=== PATIENT | female | born 1970 | race American Indian/Alaskan Native ===

== ENCOUNTER 2018-07-23 16:10 | Inpatient (IN) | payer MEDICARE ==
[2018-07-23 18:47] LABS: Bacteria,Urine 3+ /HPF (Negative); Bilirubin,Urine NEG (Negative); Blood,Urine MOD (Negative); Color,Urine Yellow (Yellow); Mucus,Urine FEW /HPF; Urobilinogen,Urine < 2.0 mg/dL (<2.0)
--- NOTE | 2018-07-23 19:14 | XRay Report ---
FINAL REPORT EXAM: XR CHEST 1V AP HISTORY: tachycardia COMPARISON: Chest CT September 2017. FINDINGS: Frontal view(s) of the chest obtained. Mild cardiac enlargement. Shallow inspiration.. No gross conso lidation or effusion. No pneumothorax. IMPRESSION: Stable mild cardiac enlargement. Lungs are grossly clear.
[2018-07-23] MEDS ORDERED: MAXIPIME/NS 2 GM/100 ML 2 GM/100 ML BAG IV ONE (19:46)
--- NOTE | 2018-07-23 19:46 | Emergency Department Report ---
ED General Adult HPI - General Chief complaint: Weakness Stated complaint: legs swollen Time Seen by Provider: 07/23/18 16:28 Source: EMS Mode of arrival: Ambulatory Limitations: No Limitations - History of Present Illness Initial comments: Mrs. Dennis is a 48-year-old female history of CVA, sepsis, diabetes, hypertension, decubitus ulcers who presents with diarrhea and possible wound infection. Mrs. Dennis called her cousin who is a healthcare provider to her home. The patient wanted assistance with her leg wounds. Her cousin realized that she has been sitting in her feces and urine for several days. Her home health aid has not been able to come to the home in 3 days. She was seen at outside hospital. She was diagnosed a UTI. She was sent home with Bach catheter. She was instructed to return to the ER in 2 days to have the Bach catheter removed. She is currently taking ciprofloxacin. She also has severe pain due to chronic ulcers on both legs and both buttocks. Cousin contacted the EMS for assistance with wound care. She is unclear if the wounds were infected. Patient is mobile. Patient is able to ambulate with walker. However due to her habitus and excess weight (BMI 62 kg/m2), mobility is difficult. Cousin is very frustrated that she chooses not to ambulate although she has the ability. Her sons with whom she lives provides hygiene care. Cousin is concerned for severe depression before and after stroke which has caused patient to neglect her health. -: year(s) (ulcers presents for several years) Location: buttocks, lower extremity Severity scale (0 -10): 8 Quality: burning Consistency: constant Associated Symptoms: malaise - Related Data Home Medications Medication Instructions Recorded Confirmed Last Taken Metformin HCl [Metformin HCl ER] 500 mg PO BID 08/10/13 09/18/17 09/17/17 Baclofen [Lioresal] 10 mg PO QID 08/19/15 09/18/17 09/17/17 Previous Rx's Medication Instructions Recorded Last Taken Type oxyCODONE /ACETAMINOPHEN [Percocet 1 tab PO Q6HR PRN #20 tablet 11/01/15 09/17/17 Rx 5/325 mg] ALBUTEROL NEB's [Proventil 0.083% 2.5 mg IH Q4HRT PRN #100 nebu 09/21/17 Unknown Rx NEBS] Acetaminophen [Acetaminophen TAB] 650 mg PO Q4H PRN #50 tablet 09/21/17 Unknown Rx Amitriptyline [Elavil] 50 mg PO QHS #30 tablet 09/21/17 Unknown Rx Aspirin [Aspirin TAB] 325 mg PO DAILY #30 tablet 09/21/[address] [Voltaren Dr] 75 mg PO BID #30 tablet 09/21/17 Unknown Rx Famotidine [Pepcid] 20 mg PO BID #60 tablet 09/21/17 Unknown Rx Insulin Glargine,Hum.rec.anlog 2 units SQ HS #1 insuln.pen 09/21/17 Unknown Rx [Lantus Solostar] Levothyroxine [Synthroid] 50 mcg PO DAILY@0600 #30 tablet 09/21/17 Unknown Rx Lisinopril [Zestril TAB] 40 mg PO QDAY #30 tablet 09/21/17 Unknown Rx Metoprolol [Lopressor TAB] 25 mg PO BID #60 tablet 09/21/17 Unknown Rx Oxycodone HCl/Acetaminophen 1 each PO Q8H PRN #24 tablet 09/21/17 Unknown Rx [Percocet 10/325 mg] Pregabalin [Lyrica] 75 mg PO TID #90 capsule 09/21/17 Unknown Rx buPROPion [Wellbutrin] 100 mg PO BID #60 tablet 09/21/17 Unknown Rx hydroCHLOROthiazide [HCTZ] 25 mg PO QDAY #30 tablet 09/21/17 Unknown Rx Allergies Allergy/AdvReac Type Severity Reaction Status Date / Time No Known Allergies Allergy Unverified 11/01/15 12:20 ED Review of Systems ROS: Stated complaint: legs swollen Other details as noted in HPI Comment: All other systems reviewed and negative Constitutional: denies: fever, malaise Respiratory: denies: cough Cardiovascular: denies: chest pain, palpitations Skin: rash, lesions ED Past Medical Hx - Past Medical History Previous Medical History?: Yes Hx Hypertension: Yes (2009) Hx CVA: Yes (09/2014) Hx Heart Attack/AMI: No Hx Congestive Heart Failure: Yes Hx Diabetes: Yes (2005) Hx Deep Vein Thrombosis: No Hx Pulmonary Embolism: No Hx GERD: No Hx Liver Disease: No Hx Renal Disease: No Hx of Cancer: No Hx Sickle Cell Disease: No Hx Arthritis: No Hx Headaches / Migraines: No Hx Seizures: Yes (2005) Hx Kidney Stones: No Hx Psychiatric Treatment: No Hx Asthma: Yes Hx COPD: No Hx Tuberculosis: No Hx Dementia: No Hx HIV: No - Surgical History Past Surgical History?: Yes Hx Coronary Stent: No Hx Open Heart Surgery: No Hx Pacemaker: No Hx Internal Defibrillator: No Hx Cholecystectomy: No Hx Appendectomy: No Hx Breast Surgery: No Additional Surgical History: spinal sx 09/2013 left pinky to amputated 09/2014. x3. tubal ligation - Social History Smoking Status: Never Smoker Substance Use Type: None - Medications Home Medications: Home Medications Medication Instructions Recorded Confirmed Last Taken Type Metformin HCl [Metformin HCl ER] 500 mg PO BID 08/10/13 09/18/17 09/17/17 History Baclofen [Lioresal] 10 mg PO QID 08/19/15 09/18/17 09/17/17 History oxyCODONE /ACETAMINOPHEN [Percocet 1 tab PO Q6HR PRN #20 tablet 11/01/15 09/18/17 09/17/17 Rx 5/325 mg] ALBUTEROL NEB's [Proventil 0.083% 2.5 mg IH Q4HRT PRN #100 nebu 09/21/17 Unknown Rx NEBS] Acetaminophen [Acetaminophen TAB] 650 mg PO Q4H PRN #50 tablet 09/21/17 Unknown Rx Amitriptyline [Elavil] 50 mg PO QHS #30 tablet 09/21/17 Unknown Rx Aspirin [Aspirin TAB] 325 mg PO DAILY #30 tablet 09/21/[address] [Leslie Menjivar] 75 mg PO BID #30 tablet 09/21/17 Unknown Rx Famotidine [Pepcid] 20 mg PO BID #60 tablet 09/21/17 Unknown Rx Insulin Glargine,Hum.rec.anlog 2 units SQ HS #1 insuln.pen 09/21/17 Unknown Rx [Lantus Solostar] Levothyroxine [Synthroid] 50 mcg PO DAILY@0600 #30 tablet 09/21/17 Unknown Rx Lisinopril [Zestril TAB] 40 mg PO QDAY #30 tablet 09/21/17 Unknown Rx Metoprolol [Lopressor TAB] 25 mg PO BID #60 tablet 09/21/17 Unknown Rx Oxycodone HCl/Acetaminophen 1 each PO Q8H PRN #24 tablet 09/21/17 Unknown Rx [Percocet 10/325 mg] Pregabalin [Lyrica] 75 mg PO TID #90 capsule 09/21/17 Unknown Rx buPROPion [Wellbutrin] 100 mg PO BID #60 tablet 09/21/17 Unknown Rx hydroCHLOROthiazide [HCTZ] 25 mg PO QDAY #30 tablet 09/21/17 Unknown Rx ED Physical Exam - General Limitations: No Limitations General appearance: alert, in no apparent distress, other (large habitus, excessive weight) - Head Head exam: Present: atraumatic, normocephalic - Eye Eye exam: Present: normal appearance, EOMI. Absent: scleral icterus, conjunctival injection Pupils: Present: normal accommodation - ENT ENT exam: Present: normal orophraynx, mucous membranes moist - Neck Neck exam: Present: normal inspection, full ROM. Absent: tenderness, mening ismus - Respiratory Respiratory exam: Present: normal lung sounds bilaterally. Absent: wheezes, rales, rhonchi, stridor, chest wall tenderness, accessory muscle use, decreased breath sounds, prolonged expiratory - Cardiovascular Cardiovascular Exam: Present: normal rhythm, tachycardia, normal heart sounds. Absent: systolic murmur, diastolic murmur - GI/Abdominal GI/Abdominal exam: Present: soft. Absent: distended, tenderness, guarding, rebound - Back Exam Back exam: Present: normal inspection - Neurological Exam Neurological exam: Present: alert, oriented X3 - Psychiatric Psychiatric exam: Present: depressed, flat affect - Skin Skin exam: Present: other (large stage I cubitus ulcers skin breakdown on buttocks, large ulcer involving the majority of the right lower leg, leg bandage on the right) ED Course Vital Signs 07/23/18 07/23/18 07/23/18 18:05 18:30 19:39 Temperature 98.2 F 98.2 F Pulse Rate 112 H 116 H Respiratory 18 18 16 Rate Blood Pressure 177/84 Blood Pressure 177/84 144/100 [Right] O2 Sat by Pulse 98 88 Oximetry ED Medical Decision Making - Medical Decision Making Ms. Truong presents with history of UTI, leg ulcers. Will persistent tachycardia is concerning for bacteremia sepsis which she's had on previous occasion. Will be admitted to hosopitalist service for UTI sepsis. IV fluid and antibiotics initiated in the ED. due to history of CHF, IVF boluses were held. unable to order 30 ml/kg bolus. Critical care attestation.: If time is entered above; I have spent that time in minutes in the direct care of this critically ill patient, excluding procedure time. ED Disposition Clinical Impression: Sepsis, Sepsis affecting skin, UTI (urinary tract infection) Disposition: OP ADMIT IP TO THIS HOSP Is pt being admited?: Yes Does the pt Need Aspirin: No Condition: Stable
[2018-07-23] MEDS ORDERED: NACL 0.9% 1000 ML 1,000 ML IV ONE (19:47)
[2018-07-23 20:08] LABS: Hematocrit 31.6 % (30.3-42.9); Hemoglobin 9.7 gm/dl (10.1-14.3); Mean Corpuscular HGB Conc 31 % (30-34); Platelet Count 678 K/mm3 (140-440); Red Blood Count 4.91 M/mm3 (3.65-5.03)
[2018-07-23 20:09] LABS: Mean Corpuscular Hemoglobin 20 pg (28-32); Mean Corpuscular Volume 64 fl (79-97); Red Cell Distribution Width 20.3 % (13.2-15.2)
[2018-07-23 20:36] LABS: Albumin 2.9 g/dL (3.9-5); Calcium 9.4 mg/dL (8.4-10.2)
[2018-07-23] MEDS ORDERED: D50W (25GM) Syringe IV ONE (20:59)
[2018-07-23] MEDS ORDERED: HumuLIN R IV ONE (20:59)
[2018-07-23] MEDS ORDERED: ZOFRAN IV PRN (21:31)
[2018-07-23] MEDS ORDERED: TYLENOL PO PRN (21:31)
[2018-07-23] MEDS ORDERED: D50W (25GM) Syringe IV PRN (21:31)
[2018-07-23] MEDS ORDERED: SODIUM CHLORIDE FLUSH SYRINGE 10 ML IV PRN (21:31)
[2018-07-23] MEDS ORDERED: APRESOLINE IV PRN (21:34)
--- NOTE | 2018-07-23 21:34 | History and Physical Report ---
History of Present Illness Date of examination: 07/23/18 History of present illness: 48 year old woman with history of HTN, DM, CVA with residual right side weakness, decubitus ulcers was brought to the ER bu her cousin because she found at home weak and sitting in urine and feces. He was diagnosed with a UTI at [facility] and sent home with a back on the 07/19. She was instructed to return to the ER the next day to have the back removed. Her home health aide didnt show up and she hasnt followed up. She states there is no change in her wounds Review of systems Constitutional: no weight loss, chills, fever Ears, eyes, nose, mouth and throat: no nasal congestion, no nasal discharge, no sinus pressure, no vision change, no red eye. Neck: No neck pain or rigidity. Cardiovascular: no palpitations, chest pain Respiratory: no cough, shortness of breath Gastrointestinal: no hematochezia, abdominal pain Genitourinary : no frequency , no hematuria Musculoskeletal: no joint swelling or muscle ache Integumentary: no rash, no pruritis Neurological: no parathesias, no numbness, no focal weakness Endocrine: no cold or heat intolerance, no polyuria or polydipsia Hematologic/Lymphatic: no easy bruising, no easy bleeding, no gland swelling Allergic/Immunologic: no urticaria, no angioedema. PAST MEDICAL HISTORY:HTN, DM, CVA with residual right side weakness, decubitus ulcers PAST SURGICAL HISTORY: c/section X3, back surgery, left 5th toe amputation SOCIAL HISTORY: Denies alcohol, drugs, tobacco FAMILY HISTORY: Hypertension Medications and Allergies Allergies Allergy/AdvReac Type Severity Reaction Status Date / Time No Known Allergies Allergy Unverified 11/01/15 12:20 Home Medications Medication Instructions Recorded Confirmed Last Taken Type RX: Ciprofloxacin HCl 500 mg PO BID 07/23/18 07/23/18 Unknown History [Ciprofloxacin TAB] RX: Potassium Chloride 10 meq PO QDAY 07/23/18 07/23/18 Unknown History RX: Tramadol HCl [Ultram] 1 - 2 tab PO Q6H PRN 07/23/18 07/23/18 Unknown History RX: Acetaminophen [Acetaminophen 650 mg PO Q4H PRN tablet 08/01/18 Unknown Rx TAB] RX: Amitriptyline [Elavil] 50 mg PO QHS tablet 08/01/18 Unknown Rx RX: Aspirin [Aspirin TAB] 325 mg PO DAILY tablet 08/01/18 Unknown Rx RX: Baclofen [Lioresal] 10 mg PO TID tablet 08/01/18 Unknown Rx RX: Carvedilol [Coreg] 6.25 mg PO BID tablet 08/01/18 Unknown Rx RX: Famotidine [Pepcid] 40 mg PO QDAY tablet 08/01/18 Unknown Rx RX: Gabapentin [Neurontin] 300 mg PO Q8HR PRN capsule 08/01/18 Unknown Rx RX: Lisinopril [Zestril TAB] 5 mg PO QDAY tablet 08/01/18 Unknown Rx RX: Lispro Insulin [Humalog] 0 unit SUB-Q ACHS units 08/01/18 Unknown Rx RX: Pantoprazole [Protonix TAB] 40 mg PO DAILY tablet 08/01/18 Unknown Rx RX: buPROPion [Wellbutrin] 100 mg PO BID tablet 08/01/18 Unknown Rx Active Meds: Active Medications Acetaminophen (Tylenol) 650 mg PO Q4H PRN PRN Reason: Pain MILD(1-3)/Fever >100.5/FRANCOIS Dextrose (D50w (25gm) Syringe) 50 ml IV PRN PRN PRN Reason: Hypoglycemia Enoxaparin Sodium (Lovenox) 30 mg SUB-Q QDAY XUAN Sodium Chloride (Nacl 0.45% 1000 Ml) 1,000 mls @ 125 mls/hr IV DIRECT XUAN Insulin Human Lispro (Humalog) 0 unit SUB-Q ACHS XUAN; Protocol Exam - Physical Exam Narrative exam: General Apperance: The patient lying in bed, breathing comfortable HEENT: Normocephalic, atraumatic. Pupils equally round and reactive to light, E ELMER, no sclericterus or JVD or thyromegaly or nodule. , no carotid bruit, mucous membranes moist, no exudate or erythema Heart: S1-S2, regular is rhythm Lungs: Clear to auscultation bilaterally, breathing comfortable Abdomen: Positive bowel sounds, soft, nontender, nondistended, no organomegaly Extremities: No edema cyanosis clubbing Skin: sacral and lower extremity ulcers, no rash, nodule, warm and dry Neuro: cranial nerves 2-12 intact, speech is fluent, motor/sensory intact - Constitutional Vitals: Temp Pulse Resp BP Pulse Ox 98.2 F 119 H 20 154/90 88 07/23/18 19:39 07/23/18 20:00 07/23/18 20:00 07/23/18 20:00 07/23/18 18:30 Results - Labs CBC & Chem 7: 08/01/18 05:34 08/01/18 06:55 Labs: Abnormal lab results 07/23/18 07/23/18 07/23/18 Range/Units 18:30 19:40 19:40 WBC 16.6 H (4.5-11.0) K/mm3 Hgb 9.7 L (10.1-14.3) gm/dl MCV 64 L (79-97) fl MCH 20 L (28-32) pg RDW 20.3 H (13.2-15.2) % Plt Count 678 H (140-440) K/mm3 Potassium 5.5 H (3.6-5.0) mmol/L Carbon Dioxide 21 L (22-30) mmol/L BUN 38 H (7-17) mg/dL Creatinine 1.5 H (0.7-1.2) mg/dL Glucose 130 H (65-100) mg/dL Lactic Acid (0.7-2.0) mmol/L AST 41 H (5-40) units/L Albumin 2.9 L (3.9-5) g/dL Urine WBC (Auto) 75.0 H (0.0-6.0) /HPF 07/23/18 Range/Units 19:40 WBC (4.5-11.0) K/mm3 Hgb (10.1-14.3) gm/dl MCV (79-97) fl MCH (28-32) pg RDW (13.2-15.2) % Plt Count (140-440) K/mm3 Potassium (3.6-5.0) mmol/L Carbon Dioxide (22-30) mmol/L BUN (7-17) mg/dL Creatinine (0.7-1.2) mg/dL Glucose (65-100) mg/dL Lactic Acid 2.50 H* (0.7-2.0) mmol/L AST (5-40) units/L Albumin (3.9-5) g/dL Urine WBC (Auto) (0.0-6.0) /HPF - Imaging and Cardiology Chest x-ray: report reviewed Assessment and Plan Assessment Sepsis UTI ARF Hyperkalemia Hypertension Diabetes Decubitus/Lowerr extremity ulcers CVA w/ right suded weakness Plan Admit to medicine Start IV fluid, rocephin, follow cultures Give kayexalate, follow kidney function Check fingersticks, start sliding scale conult wound care DVT prophalaxis
[2018-07-23] MEDS ORDERED: NACL 0.45% 1000 ML 1,000 ML IV ONE (22:49)
[2018-07-23] MEDS: HumaLOG SUB-Q SCH (22:51)
[2018-07-23] MEDS ORDERED: NACL 0.45% 1000 ML IV SCH (22:52)
[2018-07-23] MEDS: SODIUM CHLORIDE FLUSH SYRINGE 10 ML IV SCH (22:52)
[2018-07-23] MEDS ORDERED: KIONEX PO ONE (22:57)
[2018-07-23] MEDS ORDERED: KIONEX ONE (23:05)
[2018-07-23 23:25] LABS: Total Cells Counted 100
[2018-07-23 23:26] LABS: Band Neutrophils # (Manual) 6.5 K/mm3; Basophils % (Manual) 0 % (0.0-1.8); Myelocytes # (Manual) 0.2 K/mm3
[2018-07-23 23:27] LABS: Platelet Estimate Consistent w Auto; Target Cells 1+
[2018-07-24] MEDS ORDERED: LOPRESSOR PO ONE (02:13)
[2018-07-24] MEDS ORDERED: LOPRESSOR ONE (02:17)
[2018-07-24] MEDS: PERCOCET 5/325 PO PRN (04:09)
[2018-07-24 08:22] LABS: Calcium 8.7 mg/dL (8.4-10.2)
[2018-07-24] MEDS: HumaLOG SUB-Q SCH ×4 (08:27→21:43)
--- NOTE | 2018-07-24 09:37 | Progress Note ---
Assessment and Plan Assessment and plan: Sepsis due to UTI. Continue Ceftriaxone UTI. Ceftriaxone Urine Cx in progress She was just discharged from ED at [facility] with diagnosis of UTI few days ago. History of stroke with residual right sided weakness Right leg ulcer. Bilateral post thigh ulcers Wound care nurse consulted Hypertension. Monitor BP Diabetes mellittus type 2. Fingerstick glucose q ac and hs Full code History Interval history: Gen weakness Hospitalist Physical - Physical exam Narrative exam: GEN: Not in acute distress, obese HEENT: Normocephalic, atraumatic, Neck: supple, No JVD Lungs: clear to auscultation bilaterally, no rhonchi, no wheeze Heart:S1 and S2 regular, no murmurs, rubs or gallop, Abd:soft, tender suprapubic, no rebound, normal bowel sounds Ext: Bilat lower ext edema, right leg big ulcer covered with dressing,bilat post thigh ulcers Neuro: Awake,alert, residual right sided weakness from previous stroke Psych:Normal mood - Constitutional Vitals: Temp Pulse Resp BP Pulse Ox 98.5 F 111 H 20 124/77 100 07/24/18 04:28 07/24/18 04:28 07/24/18 04:28 07/24/18 04:28 07/24/18 04:28 Results - Labs CBC & Chem 7: 07/24/18 10:00 07/24/18 07:52 Labs: Laboratory Last Values WBC 16.6 K/mm3 (4.5-11.0) H 07/23/18 19:40 RBC 4.91 M/mm3 (3.65-5.03) 07/23/18 19:40 Hgb 9.7 gm/dl (10.1-14.3) L 07/23/18 19:40 Hct 31.6 % (30.3-42.9) 07/23/18 19:40 MCV 64 fl (79-97) L 07/23/18 19:40 MCH 20 pg (28-32) L 07/23/18 19:40 MCHC 31 % (30-34) 07/23/18 19:40 RDW 20.3 % (13.2-15.2) H 07/23/18 19:40 Plt Count 678 K/mm3 (140-440) H 07/23/18 19:40 [place] % (Auto) Cardiology Consultant 07/23/18 19:40 Add Manual Diff Complete 07/23/18 19:40 Total Counted 100 07/23/18 19:40 Seg Neuts % (Manual) 37.0 % (40.0-70.0) L 07/23/18 19:40 Band Neutrophils % 39.0 % 07/23/18 19:40 Lymphocytes % (Manual) 9.0 % (13.4-35.0) L 07/23/18 19:40 Reactive Lymphs % (Man) 0 % 07/23/18 19:40 Monocytes % (Manual) 10.0 % (0.0-7.3) H 07/23/18 19:40 Eosinophils % (Manual) 4.0 % (0.0-4.3) 07/23/18 19:40 Basophils % (Manual) 0 % (0.0-1.8) 07/23/18 19:40 Metamyelocytes % 0 % 07/23/18 19:40 Myelocytes % 1.0 % 07/23/18 19:40 Promyelocytes % 0 % 07/23/18 19:40 Blast Cells % 0 % 07/23/18 19:40 Nucleated RBC % Not Reportable 07/23/18 19:40 Seg Neutrophils # Man 6.1 K/mm3 (1.8-7.7) 07/23/18 19:40 Band Neutrophils # 6.5 K/mm3 07/23/18 19:40 Lymphocytes # (Manual) 1.5 K/mm3 (1.2-5.4) 07/23/18 19:40 Abs React Lymphs (Man) 0.0 K/mm3 07/23/18 19:40 Monocytes # (Manual) 1.7 K/mm3 (0.0-0.8) H 07/23/18 19:40 Eosinophils # (Manual) 0.7 K/mm3 (0.0-0.4) H 07/23/18 19:40 Basophils # (Manual) 0.0 K/mm3 (0.0-0.1) 07/23/18 19:40 Metamyelocytes # 0.0 K/mm3 07/23/18 19:40 Myelocytes # 0.2 K/mm3 07/23/18 19:40 Promyelocytes # 0.0 K/mm3 07/23/18 19:40 Blast Cells # 0.0 K/mm3 07/23/18 19:40 WBC Morphology Not Reportable 07/23/18 19:40 Hypersegmented Neuts Not Reportable 07/23/18 19:40 Hyposegmented Neuts Not Reportable 07/23/18 19:40 Hypogranular Neuts Not Reportable 07/23/18 19:40 Smudge Cells Not Reportable 07/23/18 19:40 Toxic Granulation Not Reportable 07/23/18 19:40 Toxic Vacuolation Not Reportable 07/23/18 19:40 Dohle Bodies Not Reportable 07/23/18 19:40 Pelger-Huet Anomaly Not Reportable 07/23/18 19:40 [place] Rods Not Reportable 07/23/18 19:40 Platelet Estimate Consistent w auto 07/23/18 19:40 Clumped Platelets Not Reportable 07/23/18 19:40 Plt Clumps, EDTA Not Reportable 07/23/18 19:40 Large Platelets Not Reportable 07/23/18 19:40 Giant Platelets Not Reportable 07/23/18 19:40 Platelet Satelliting Not Reportable 07/23/18 19:40 Plt Morphology Comment Not Reportable 07/23/18 19:40 RBC Morphology Not Reportable 07/23/18 19:40 Dimorphic RBCs Not Reportable 07/23/18 19:40 Polychromasia Not Reportable 07/23/18 19:40 Hypochromasia Not Reportable 07/23/18 19:40 Poikilocytosis Not Reportable 07/23/18 19:40 Anisocytosis Not Reportable 07/23/18 19:40 Microcytosis Not Reportable 07/23/18 19:40 Macrocytosis Not Reportable 07/23/18 19:40 Spherocytes Not Reportable 07/23/18 19:40 Pappenheimer Bodies Not Reportable 07/23/18 19:40 Sickle Cells Not Reportable 07/23/18 19:40 Target Cells 1+ 07/23/18 19:40 Tear Drop Cells Not Reportable 07/23/18 19:40 Ovalocytes Not Reportable 07/23/18 19:40 Helmet Cells Not Reportable 07/23/18 19:40 Tovar-Reedley Bodies Not Reportable 07/23/18 19:40 [place] Rings Not Reportable 07/23/18 19:40 Seven Cells Not Reportable 07/23/18 19:40 Bite Cells Not Reportable 07/23/18 19:40 Crenated Cell Not Reportable 07/23/18 19:40 Elliptocytes Not Reportable 07/23/18 19:40 Acanthocytes (Spur) Not Reportable 07/23/18 19:40 Rouleaux Not Reportable 07/23/18 19:40 Hemoglobin C Crystals Not Reportable 07/23/18 19:40 Schistocytes Not Reportable 07/23/18 19:40 Malaria parasites Not Reportable 07/23/18 19:40 Jimmy Bodies Not Reportable 07/23/18 19:40 Hem Pathologist Commnt No 07/23/18 19:40 Sodium 142 mmol/L (137-145) 07/24/18 07:52 Potassium 4.9 mmol/L (3.6-5.0) 07/24/18 07:52 Chloride 110.7 mmol/L (98-107) H 07/24/18 07:52 Carbon Dioxide 18 mmol/L (22-30) L 07/24/18 07:52 Anion Gap 18 mmol/L 07/24/18 07:52 BUN 36 mg/dL (7-17) H 07/24/18 07:52 Creatinine 1.3 mg/dL (0.7-1.2) H 07/24/18 07:52 Estimated GFR 53 ml/min 07/24/18 07:52 BUN/Creatinine Ratio 28 % 07/24/18 07:52 Glucose 117 mg/dL (65-100) H 07/24/18 07:52 POC Glucose 130 (70-105) H 07/24/18 07:40 Lactic Acid 2.30 mmol/L (0.7-2.0) H* 07/24/18 07:52 Calcium 8.7 mg/dL (8.4-10.2) 07/24/18 07:52 Total Bilirubin 0.30 mg/dL (0.1-1.2) 07/23/18 19:40 AST 41 units/L (5-40) H 07/23/18 19:40 ALT 22 units/L (7-56) 07/23/18 19:40 Alkaline Phosphatase 113 units/L (35-129) 07/23/18 19:40 Total Protein 8.2 g/dL (6.3-8.2) 07/23/18 19:40 Albumin 2.9 g/dL (3.9-5) L 07/23/18 19:40 Albumin/Globulin Ratio 0.5 % 07/23/18 19:40 Urine Color Yellow (Yellow) 07/23/18 18:30 Urine Turbidity Slightly-cloudy (Clear) 07/23/18 18: Urine pH 5.0 (5.0-7.0) 07/23/18 18: Ur Specific [place]rum 1.012 (1.003-1.030) 07/23/18 18: Urine Protein 30 mg/dl mg/dL (Negative) 07/23/18 18:30 Urine Glucose (UA) Neg mg/dL (Negative) 07/23/18 Urine Ketones Neg mg/dL (Negative) 07/23/18 18: Urine Blood Mod (Negative) 07/23/18 18: Urine Nitrite Neg (Negative) 07/23/18: Urine Bilirubin Neg (Negative) 07/23/18 18: Urine Urobilinogen < 2.0 mg/dL (<2.0) 07/23/18 18:30 Ur Leukocyte Esterase Lg (Negative) 07/23/18 18:30 Urine WBC (Auto) 75.0 /HPF (0.0-6.0) H 07/23/18 18:30 Urine RBC (Auto) 83.0 /HPF (0.0-6.0) 07/23/18 18:30 U Epithel Cells (Auto) < 1.0 /HPF (0-13.0) 07/23/18 18: Urine Bacteria (Auto) 3+ /HPF (Negative) 07/23/18 18:30 Ur Transition Epith Cell 1 /HPF 07/23/18 18:30 Urine Mucus Few /HPF 07/23/18 18:30 Urine Yeast (Budding) 1+ /HPF 07/23/18 18:30
[2018-07-24] MEDS: SODIUM CHLORIDE FLUSH SYRINGE 10 ML IV SCH ×2 (09:53→21:45)
[2018-07-24] MEDS: LOVENOX SUB-Q SCH (09:53)
[2018-07-24] MEDS ORDERED: LOVENOX SUB-Q SCH (10:00)
[2018-07-24 10:21] LABS: Hematocrit 30.7 % (30.3-42.9); Hemoglobin 9.4 gm/dl (10.1-14.3); Mean Corpuscular HGB Conc 31 % (30-34); Platelet Count 619 K/mm3 (140-440); Red Blood Count 4.85 M/mm3 (3.65-5.03); Red Cell Distribution Width 19.6 % (13.2-15.2)
[2018-07-24 10:31] LABS: Mean Corpuscular Hemoglobin 19 pg (28-32); Mean Corpuscular Volume 63 fl (79-97)
[2018-07-24] MEDS: ROCEPHIN/NS 1 GM/50 ML 1 GM/50 ML BAG IV SCH (12:26)
[2018-07-24 12:55] LABS: Band Neutrophils # (Manual) 0.1 K/mm3; Basophils % (Manual) 0 % (0.0-1.8); Total Cells Counted 100
[2018-07-24 12:56] LABS: Hypochromasia 2+
[2018-07-24 12:57] LABS: Platelet Estimate Consistent w Auto; Target Cells 1+
[2018-07-25] MEDS: NACL 0.45% 1000 ML 1,000 ML IV SCH ×2 (06:50→14:46)
[2018-07-25 07:15] LABS: Hematocrit 25.6 % (30.3-42.9); Hemoglobin 8.1 gm/dl (10.1-14.3); Mean Corpuscular HGB Conc 32 % (30-34); Platelet Count 592 K/mm3 (140-440); Red Blood Count 4.08 M/mm3 (3.65-5.03); Red Cell Distribution Width 19.2 % (13.2-15.2)
[2018-07-25 07:19] LABS: Mean Corpuscular Volume 63 fl (79-97)
[2018-07-25 07:20] LABS: Mean Corpuscular Hemoglobin 20 pg (28-32)
[2018-07-25 07:27] LABS: BUN/Creatinine Ratio 24; Blood Urea Nitrogen 24 mg/dL (7-17); Calcium 8.4 mg/dL (8.4-10.2); Hemolysis Index 1
[2018-07-25] MEDS: HumaLOG SUB-Q SCH ×4 (07:30→21:58)
--- NOTE | 2018-07-25 08:56 | Progress Note ---
Assessment and Plan Assessment and plan: Sepsis due to UTI. Continue Ceftriaxone UTI. Ceftriaxone Urine Cx in progress She was just discharged from ED at [facility] with diagnosis of UTI few days ago. History of stroke with residual right sided weakness Bilateral leg ulcers. Bilateral post thigh ulcers Wound care nurse consulted Hypertension. Monitor BP Diabetes mellittus type 2. Fingerstick glucose q ac and hs Full code History Interval history: Generalized weakness Multiple chronic ulcers Hospitalist Physical - Physical exam Narrative exam: GEN: Not in acute distress, morbidly obese HEENT: Normocephalic, atraumatic, Neck: supple, No JVD Lungs: clear to auscultation bilaterally, no rhonchi, no wheeze Heart:S1 and S2 regular, no murmurs, rubs or gallop, Abd:soft, tender suprapubic, no rebound, normal bowel sounds Ext: Bilat lower ext edema, bilateral large leg ulcers covered with dressing,bilat post thigh ulcers Neuro: Awake,alert, residual right sided weakness from previous stroke Skin:sacral decub ulcer - Constitutional Vitals: Temp Pulse Resp BP Pulse Ox 98.8 F 114 H 20 111/55 98 07/25/18 05:02 07/25/18 05:02 07/25/18 05:02 07/25/18 05:02 07/25/18 05:02 Results - Labs CBC & Chem 7: 07/25/18 06:30 07/25/18 05:00 Labs: Laboratory Last Values WBC 11.5 K/mm3 (4.5-11.0) H 07/25/18 06:30 RBC 4.08 M/mm3 (3.65-5.03) 07/25/18 06:30 Hgb 8.1 gm/dl (10.1-14.3) L 07/25/18 06:30 Hct 25.6 % (30.3-42.9) L 07/25/18 06:30 MCV 63 fl (79-97) L 07/25/18 06:30 MCH 20 pg (28-32) L 07/25/18 06:30 MCHC 32 % (30-34) 07/25/18 06:30 RDW 19.2 % (13.2-15.2) H 07/25/18 06:30 Plt Count 592 K/mm3 (140-440) H 07/25/18 06:30 Lymph % (Auto) [employer] 07/24/18 10:00 [place] % (Auto) [employer] 07/24/18 10:00 Eos % (Auto) [employer] 07/24/18 10:00 Baso % (Auto) [employer] 07/24/18 10:00 Lymph # [employer] 07/24/18 10:00 [place] # [employer] 07/24/18 10:00 Eos # [employer] 07/24/18 10:00 Baso # [employer] 07/24/18 10:00 Add Manual Diff Complete 07/24/18 10:00 Total Counted 100 07/24/18 10:00 Seg Neutrophils % [employer] 07/24/18 10:00 Seg Neuts % (Manual) 63.0 % (40.0-70.0) 07/24/18 10:00 Band Neutrophils % 1.0 % 07/24/18 10:00 Lymphocytes % (Manual) 17.0 % (13.4-35.0) 07/24/18 10:00 Reactive Lymphs % (Man) 0 % 07/24/18 10:00 Monocytes % (Manual) 14.0 % (0.0-7.3) H 07/24/18 10:00 Eosinophils % (Manual) 5.0 % (0.0-4.3) H 07/24/18 10:00 Basophils % (Manual) 0 % (0.0-1.8) 07/24/18 10:00 Metamyelocytes % 0 % 07/24/18 10:00 Myelocytes % 0 % 07/24/18 10:00 Promyelocytes % 0 % 07/24/18 10:00 Blast Cells % 0 % 07/24/18 10:00 Nucleated RBC % Not Reportable 07/24/18 10:00 Seg Neutrophils # [employer] 07/24/18 10:00 Seg Neutrophils # Man 7.6 K/mm3 (1.8-7.7) 07/24/18 10:00 Band Neutrophils # 0.1 K/mm3 07/24/18 10:00 Lymphocytes # (Manual) 2.1 K/mm3 (1.2-5.4) 07/24/18 10:00 Abs React Lymphs (Man) 0.0 K/mm3 07/24/18 10:00 Monocytes # (Manual) 1.7 K/mm3 (0.0-0.8) H 07/24/18 10:00 Eosinophils # (Manual) 0.6 K/mm3 (0.0-0.4) H 07/24/18 10:00 Basophils # (Manual) 0.0 K/mm3 (0.0-0.1) 07/24/18 10:00 Metamyelocytes # 0.0 K/mm3 07/24/18 10:00 Myelocytes # 0.0 K/mm3 07/24/18 10:00 Promyelocytes # 0.0 K/mm3 07/24/18 10:00 Blast Cells # 0.0 K/mm3 07/24/18 10:00 WBC Morphology Not Reportable 07/24/18 10:00 Hypersegmented Neuts Not Reportable 07/24/18 10:00 Hyposegmented Neuts Not Reportable 07/24/18 10:00 Hypogranular Neuts Not Reportable 07/24/18 10:00 Smudge Cells Not Reportable 07/24/18 10:00 Toxic Granulation Not Reportable 07/24/18 10:00 Toxic Vacuolation Not Reportable 07/24/18 10:00 Dohle Bodies Not Reportable 07/24/18 10:00 Pelger-Huet Anomaly Not Reportable 07/24/18 10:00 [place] Rods Not Reportable 07/24/18 10:00 Platelet Estimate Consistent w auto 07/24/18 10:00 Clumped Platelets Not Reportable 07/24/18 10:00 Plt Clumps, EDTA Not Reportable 07/24/18 10:00 Large Platelets Not Reportable 07/24/18 10:00 Giant Platelets Not Reportable 07/24/18 10:00 Platelet Satelliting Not Reportable 07/24/18 10:00 Plt Morphology Comment Not Reportable 07/24/18 10:00 RBC Morphology Not Reportable 07/24/18 10:00 Dimorphic RBCs Not Reportable 07/24/18 10:00 Polychromasia Not Reportable 07/24/18 10:00 Hypochromasia 2+ 07/24/18 10:00 Poikilocytosis Not Reportable 07/24/18 10:00 Anisocytosis Not Reportable 07/24/18 10:00 Microcytosis 2+ 07/24/18 10:00 Macrocytosis Not Reportable 07/24/18 10:00 Spherocytes Not Reportable 07/24/18 10:00 Pappenheimer Bodies Not Reportable 07/24/18 10:00 Sickle Cells Not Reportable 07/24/18 10:00 Target Cells 1+ 07/24/18 10:00 Tear Drop Cells Not Reportable 07/24/18 10:00 Ovalocytes Not Reportable 07/24/18 10:00 Helmet Cells Not Reportable 07/24/18 10:00 [employer] Bodies Not Reportable 07/24/18 10:00 [place] Rings Not Reportable 07/24/18 10:00 Seven Cells Not Reportable 07/24/18 10:00 Bite Cells Not Reportable 07/24/18 10:00 Crenated Cell Not Reportable 07/24/18 10:00 Elliptocytes Not Reportable 07/24/18 10:00 Acanthocytes (Spur) Not Reportable 07/24/18 10:00 Rouleaux Not Reportable 07/24/18 10:00 Hemoglobin C Crystals Not Reportable 07/24/18 10:00 Schistocytes Not Reportable 07/24/18 10:00 Malaria parasites Not Reportable 07/24/18 10:00 Jimmy Bodies Not Reportable 07/24/18 10:00 Hem Pathologist Commnt No 07/24/18 10:00 Sodium 141 mmol/L (137-145) 07/25/18 05:00 Potassium 4.2 mmol/L (3.6-5.0) 07/25/18 05:00 Chloride 108.9 mmol/L (98-107) H 07/25/18 05:00 Carbon Dioxide 19 mmol/L (22-30) L 07/25/18 05:00 Anion Gap 17 mmol/L 07/25/18 05:00 BUN 24 mg/dL (7-17) H 07/25/18 05:00 Creatinine 1.0 mg/dL (0.7-1.2) 07/25/18 05:00 Estimated GFR > 60 ml/min 07/25/18 05:00 BUN/Creatinine Ratio 24 % 07/25/18 05:00 Glucose 95 mg/dL (65-100) 07/25/18 05:00 POC Glucose 98 (70-105) 07/25/18 08:25 Lactic Acid 1.60 mmol/L (0.7-2.0) 07/24/18 15:25 Calcium 8.4 mg/dL (8.4-10.2) 07/25/18 05:00 Total Bilirubin 0.30 mg/dL (0.1-1.2) 07/23/18 19:40 AST 41 units/L (5-40) H 07/23/18 19:40 ALT 22 units/L (7-56) 07/23/18 19:40 Alkaline Phosphatase 113 units/L (35-129) 07/23/18 19:40 Total Protein 8.2 g/dL (6.3-8.2) 07/23/18 19:40 Albumin 2.9 g/dL (3.9-5) L 07/23/18 19:40 Albumin/Globulin Ratio 0.5 % 07/23/18 19:40 Urine Color Yellow (Yellow) 07/23/18 18:30 Urine Turbidity Slightly-cloudy (Clear) 07/23/18 18:30 Urine pH 5.0 (5.0-7.0) 07/23/18 18:30 Ur Specific [place] 1.012 (1.003-1.030) 07/23/18 18:30 Urine Protein 30 mg/dl mg/dL (Negative) 07/23/18 18:30 Urine Glucose (UA) Neg mg/dL (Negative) 07/23/18 18:30 Urine Ketones Neg mg/dL (Negative) 07/23/18 18:30 Urine Blood Mod (Negative) 07/23/18 18:30 Urine Nitrite Neg (Negative) 07/23/18 18:30 Urine Bilirubin Neg (Negative) 07/23/18 18:30 Urine Urobilinogen < 2.0 mg/dL (<2.0) 07/23/18 18:30 Ur Leukocyte Esterase Lg (Negative) 07/23/18 18:30 Urine WBC (Auto) 75.0 /HPF (0.0-6.0) H 07/23/18 18:30 Urine RBC (Auto) 83.0 /HPF (0.0-6.0) 07/23/18 18:30 U Epithel Cells (Auto) < 1.0 /HPF (0-13.0) 07/23/18 18:30 Urine Bacteria (Auto) 3+ /HPF (Negative) 07/23/18 18:30 Ur Transition Epith Cell 1 /HPF 07/23/18 18:30 Urine Mucus Few /HPF 07/23/18 18:30 Urine Yeast (Budding) 1+ /HPF 07/23/18 18:30
--- NOTE | 2018-07-25 09:29 | Query- Renal Failure ---
Deadarby Correa____Paula Date: 07/25/18 [employer] Sewer Hand/CDS:___beba Phone#:___[phone] Exercise your independent professional judgment when responding to query. Questions asked do not imply a particular answer is desired or expected. We greatly appreciate your clarification on this issue. Clinical Documentation States: 48 taer old woman with history of HTN, DM, CVA with residual right side weakness, decubitus ulcers was brought to the ER bu her cousin because she found at home weak and sitting in urine and feces. He was diagnosed with a UTI at [facility] and sent home with a back on the 07/19. Assessment Sepsis UTI ARF Hyperkalemia Hypertension Diabetes Decubitus/Lowerr extremity ulcers Clinical Findings Show: 07/23/18 07/24/18 07/25/18 Creatinine 1.5 1.3 1.0 Bun/Cr Ratio 25 28 24 Please clarify if you mean: Acute Renal Failure with or due to: [ ] Tubular Necrosis [ ] Medullary Necrosis [x ] Vasomotor Nephropathy [ ] Shock Kidney [ ] Tubular Nephrosis [ ] Renal Tubular Stasis [ ] Cortical Necrosis [ ] Acute Renal Failure (unspecified) [ ] Lower Tubular Nephrosis [ ] Other: [ ] Not Applicable Present on Admission: [x ] Yes (Y) [ ] Clinically undeterminable (W) [ ] No (N) Please also document response in your Progress Notes and/or Discharge Summary and indicate if the condition was present on admission. RANDYD
[2018-07-25] MEDS: ROCEPHIN/NS 1 GM/50 ML 1 GM/50 ML BAG IV SCH (10:04)
[2018-07-25] MEDS: SODIUM CHLORIDE FLUSH SYRINGE 10 ML IV SCH ×2 (10:06→22:46)
[2018-07-25] MEDS: LOVENOX SUB-Q SCH (10:06)
[2018-07-25] MEDS: MORPHINE IV PRN (13:26)
[2018-07-25] MEDS: DIFLUCAN PO SCH (14:46)
[2018-07-25] MEDS ORDERED: NON-FORMULARY (Omeprazole [Omeprazole] 40 MG) PO SCH (16:30)
[2018-07-25] MEDS: PEPCID PO SCH (18:34)
[2018-07-25] MEDS: ZESTRIL PO SCH (18:34)
[2018-07-25] MEDS: ASPIRIN PO SCH (18:37)
[2018-07-25] MEDS: PERCOCET 5/325 PO PRN (18:41)
[2018-07-25] MEDS: ELAVIL PO SCH (21:25)
[2018-07-25] MEDS: WELLBUTRIN PO SCH (21:25)
[2018-07-25] MEDS: LIORESAL PO SCH (21:25)
[2018-07-25] MEDS: COREG PO SCH (21:25)
[2018-07-26] MEDS: PERCOCET 5/325 PO PRN ×3 (02:12→21:15)
[2018-07-26] MEDS: NACL 0.45% 1000 ML 1,000 ML IV SCH ×2 (02:12→09:52)
[2018-07-26] MEDS: HumaLOG SUB-Q SCH ×3 (08:38→16:30)
[2018-07-26] MEDS: LIORESAL PO SCH ×3 (08:47→21:10)
[2018-07-26] MEDS: LOVENOX SUB-Q SCH (09:51)
[2018-07-26] MEDS: ROCEPHIN/NS 1 GM/50 ML 1 GM/50 ML BAG IV SCH (09:52)
[2018-07-26] MEDS: ZESTRIL PO SCH (09:53)
[2018-07-26] MEDS: ASPIRIN PO SCH (09:53)
[2018-07-26] MEDS: PEPCID PO SCH (09:53)
[2018-07-26] MEDS: COREG PO SCH ×2 (09:54→21:12)
[2018-07-26] MEDS: SODIUM CHLORIDE FLUSH SYRINGE 10 ML IV SCH ×2 (09:55→21:11)
[2018-07-26] MEDS: WELLBUTRIN PO SCH ×2 (09:55→21:11)
[2018-07-26] MEDS: NEURONTIN PO PRN ×2 (10:04→21:15)
--- NOTE | 2018-07-26 10:27 | Consultation ---
History of Present Illness - Reason for Consult Consult date: 07/26/18 Reason for consult: Mental Health Evaluation Requesting physician: SHABNAM BARDALES - Chief Complaint Chief complaint: "I have depression" - History of Present Psychiatric Illness 48 y.o. AA female who presented to the ER for possible wound infection to her lower extremities. Psychiatry was consulted to see the patient for hx of . depression. Today the patient is calm and cooperative during the assessment. She stated that she have been dealing with depression since she broke up with her children's father in 2011. She stated hat he weight has been a issue as well. She stated that her PCP have been managing her depression with Wellbutrin. She stated that the medication is effective. She stated that she is a candidate for gastric sleeve surgery for weight loss and look forward to having the procedure down. She stated that she would like to continue to see her PCP who manage her depression. She denies SI/HI's, being depressed, and AVH's. She denies erratic sleep and a poor appetite. She denies any manic episodes in the past. She denies recreational drug use and alcohol consumption (etoh). Medications and Allergies Allergies Allergy/AdvReac Type Severity Reaction Status Date / Time No Known Allergies Allergy Unverified 11/01/15 12:20 Home Medications Medication Instructions Recorded Confirmed Last Taken Type Baclofen [Lioresal] 5 mg PO TID 08/19/15 07/23/18 09/17/17 History Amitriptyline [Elavil] 50 mg PO QHS #30 tablet 09/21/17 07/23/18 Unknown Rx Aspirin [Aspirin TAB] 325 mg PO DAILY #30 tablet 09/21/17 07/23/18 Unknown Rx buPROPion [Wellbutrin] 100 mg PO BID #60 tablet 09/21/17 07/23/18 Unknown Rx Carvedilol [Coreg] 6.25 mg PO BID 07/23/18 07/23/18 Unknown History Ciprofloxacin HCl [Ciprofloxacin 500 mg PO BID 07/23/18 07/23/18 Unknown History TAB] Famotidine [Pepcid] 40 mg PO QDAY 07/23/18 07/23/18 Unknown History Gabapentin [Neurontin] 300 mg PO Q8HR PRN 07/23/18 07/23/18 Unknown History Lisinopril [Zestril] 5 mg PO QDAY 07/23/18 07/23/18 Unknown History Omeprazole 40 mg PO QDAY 07/23/18 07/23/18 Unknown History Potassium Chloride 10 meq PO QDAY 07/23/18 07/23/18 Unknown History Tramadol HCl [Ultram] 1 - 2 tab PO Q6H PRN 07/23/18 07/23/18 Unknown History Active Meds: Active Medications Acetaminophen (Tylenol) 650 mg PO Q4H PRN PRN Reason: Pain MILD(1-3)/Fever >100.5/FRANCOIS Amitriptyline HCl (Elavil) 50 mg PO QHS [facility] Last Admin: 07/25/18 21:25 Dose: 50 mg Documented by: Aspirin (Aspirin) 325 mg PO DAILY [facility] Last Admin: 07/26/18 09:53 Dose: 325 mg Documented by: Baclofen (Lioresal) 5 mg PO TID [facility] Last Admin: 07/26/18 08:47 Dose: 5 mg Documented by: Bupropion HCl (Wellbutrin) 100 mg PO BID [facility] Last Admin: 07/26/18 09:55 Dose: 100 mg Documented by: Carvedilol (Coreg) 6.25 mg PO BID [facility] Last Admin: 07/26/18 09:54 Dose: 6.25 mg Documented by: Dextrose (D50w (25gm) Syringe) 50 ml IV PRN PRN PRN Reason: Hypoglycemia Enoxaparin Sodium (Lovenox) 40 mg SUB-Q QDAY@1000 [facility] Last Admin: 07/26/18 09:51 Dose: 40 mg Documented by: Famotidine (Pepcid) 40 mg PO QDAY [facility] Last Admin: 07/26/18 09:53 Dose: 40 mg Documented by: Fluconazole (Diflucan) 200 mg PO QDAY [facility] Stop: 08/01/18 11:59 Last Admin: 07/25/18 14:46 Dose: 200 mg Documented by: Gabapentin (Neurontin) 300 mg PO Q8HR PRN PRN Reason: Pain , Severe (7-10) Last Admin: 07/26/18 10:04 Dose: 300 mg Documented by: Hydralazine HCl (Apresoline) 5 mg IV Q6HR PRN PRN Reason: Hypertension Sodium Chloride (Nacl 0.45% 1000 Ml) 1,000 mls @ 125 mls/hr IV DIRECT [facility] Last Admin: 07/26/18 09:52 Dose: 125 mls/hr Documented by: Ceftriaxone Sodium (Rocephin/Ns 1 Gm/50 Ml) 1 gm in 50 mls @ 100 mls/hr IV Q24HR [facility]; Protocol Last Admin: 07/26/18 09:52 Dose: 100 mls/hr Documented by: Insulin Human Lispro (Humalog) 0 unit SUB-Q ACHS [facility]; Protocol Last Admin: 07/26/18 08:38 Dose: Not Given Documented by: Lisinopril (Zestril) 5 mg PO QDAY [facility] Last Admin: 07/26/18 09:53 Dose: 5 mg Documented by: Morphine Sulfate (Morphine) 2 mg IV Q4H PRN PRN Reason: Pain , Severe (7-10) Last Admin: 07/25/18 13:26 Dose: 2 mg Documented by: Ondansetron HCl (Zofran) 4 mg IV Q4H PRN PRN Reason: Nausea And Vomiting Oxycodone/Acetaminophen (Percocet 5/325) 1 tab PO Q6H PRN PRN Reason: Pain, Moderate (4-6) Last Admin: 07/26/18 10:00 Dose: 1 tab Documented by: Pantoprazole Sodium (Protonix) 40 mg PO DAILY [facility] Sodium Chloride (Sodium Chloride Flush Syringe 10 Ml) 10 ml IV BID [facility] Last Admin: 07/26/18 09:55 Dose: 10 ml Documented by: Sodium Chloride (Sodium Chloride Flush Syringe 10 Ml) 10 ml IV PRN PRN PRN Reason: LINE FLUSH Past psychiatric history - Past Medical History Past Medical History: diabetes, hypertension, stroke Past Surgical History: No surgical history - past Psychiatric treatment and history psychiatric treatment history: The patient's depression is managed by her PCP. She denies a fam psy hx. - Social History Social history: lives with family Mental Status Exam - Vital signs Last Vital Signs Temp 98.0 F 07/26/18 05:32 Pulse 93 H 07/26/18 09:53 Resp 19 07/26/18 05:32 BP 122/60 07/26/18 09:53 Pulse Ox 97 07/26/18 05:32 - Exam Narrative exam: MSE: Appearance: calm, cooperative Behavior: regular eye contact Speech: regular rate and tone Mood: "okay" Affect: congruent to mood Thought Process: logical Thought Content: denies SI/HI's and AVH's Motor Activity: lying in bed Cognition: A/O x3 Insight: appropriate Judgment: appropriate Results Result Diagrams: 07/25/18 06:30 07/25/18 05:00 Abnormal lab results 07/25/18 07/25/18 07/25/18 Range/Units 12:54 16:32 21:22 POC Glucose 109 H 115 H 106 H (70-105) All other labs normal. Assessment and Plan Assessment and plan: Impression: Hx of Depression. Today the patient is calm and cooperative during the assessment. Recommendation/Plan: Continue Wellbutrin 100 mg PO BID for depression. Discussed possible suicidality/medication induced adrian with the patient reference Cecilia dietrich. Psy sign off. Dispo: The patient can follow up with her PCP for outpatient psy services. Will staff with Dr Juice Rutherford.
--- NOTE | 2018-07-26 10:51 | Progress Note ---
Assessment and Plan Assessment and plan: Sepsis due to UTI. Continue Ceftriaxone UTI. Ceftriaxone Urine Cx in progress She was just discharged from ED at [facility] with diagnosis of UTI few days ago. History of stroke with residual right sided weakness Bilateral leg ulcers. Bilateral post thigh ulcers Wound care nurse consulted Consult gen surg Consult vasc Surg depression. Psych following Hypertension. Monitor BP Diabetes mellittus type 2. Fingerstick glucose q ac and hs Full code History Interval history: Generalized weakness Multiple chronic decubitus ulcers depressed Hospitalist Physical - Physical exam Narrative exam: GEN: Not in acute distress, morbidly obese HEENT: Normocephalic, atraumatic, Neck: supple, No JVD Lungs: clear to auscultation bilaterally, no rhonchi, no wheeze Heart:S1 and S2 regular, no murmurs, rubs or gallop, Abd:soft, tender suprapubic, no rebound, normal bowel sounds Ext: Bilat lower ext edema, bilateral large leg ulcers covered with dressing,bilat post thigh ulcers Neuro: Awake,alert, residual right sided weakness from previous stroke Skin:sacral decub ulcer - Constitutional Vitals: Temp Pulse Resp BP Pulse Ox 98.0 F 93 H 19 122/60 97 07/26/18 05:32 07/26/18 09:53 07/26/18 05:32 07/26/18 09:53 07/26/18 05:32 Results - Labs CBC & Chem 7: 07/25/18 06:30 07/25/18 05:00 Labs: Laboratory Last Values WBC 11.5 K/mm3 (4.5-11.0) H 07/25/18 06:30 RBC 4.08 M/mm3 (3.65-5.03) 07/25/18 06:30 Hgb 8.1 gm/dl (10.1-14.3) L 07/25/18 06:30 Hct 25.6 % (30.3-42.9) L 07/25/18 06:30 MCV 63 fl (79-97) L 07/25/18 06:30 MCH 20 pg (28-32) L 07/25/18 06:30 MCHC 32 % (30-34) 07/25/18 06:30 RDW 19.2 % (13.2-15.2) H 07/25/18 06:30 Plt Count 592 K/mm3 (140-440) H 07/25/18 06:30 Lymph % (Auto) Camera Machinist 07/24/18 10:00 [place] % (Auto) Camera Machinist 07/24/18 10:00 Eos % (Auto) [employer] Machinist 07/24/18 10:00 Baso % (Auto) [employer] Machinist 07/24/18 10:00 Lymph # [employer] Machinist 07/24/18 10:00 [place] # Camera Machinist 07/24/18 10:00 Eos # Camera Machinist 07/24/18 10:00 Baso # Camera Machinist 07/24/18 10:00 Add Manual Diff Complete 07/24/18 10:00 Total Counted 100 07/24/18 10:00 Seg Neutrophils % Camera Machinist 07/24/18 10:00 Seg Neuts % (Manual) 63.0 % (40.0-70.0) 07/24/18 10:00 Band Neutrophils % 1.0 % 07/24/18 10:00 Lymphocytes % (Manual) 17.0 % (13.4-35.0) 07/24/18 10:00 Reactive Lymphs % (Man) 0 % 07/24/18 10:00 Monocytes % (Manual) 14.0 % (0.0-7.3) H 07/24/18 10:00 Eosinophils % (Manual) 5.0 % (0.0-4.3) H 07/24/18 10:00 Basophils % (Manual) 0 % (0.0-1.8) 07/24/18 10:00 Metamyelocytes % 0 % 07/24/18 10:00 Myelocytes % 0 % 07/24/18 10:00 Promyelocytes % 0 % 07/24/18 10:00 Blast Cells % 0 % 07/24/18 10:00 Nucleated RBC % Not Reportable 07/24/18 10:00 Seg Neutrophils # Camera Machinist 07/24/18 10:00 Seg Neutrophils # Man 7.6 K/mm3 (1.8-7.7) 07/24/18 10:00 Band Neutrophils # 0.1 K/mm3 07/24/18 10:00 Lymphocytes # (Manual) 2.1 K/mm3 (1.2-5.4) 07/24/18 10:00 Abs React Lymphs (Man) 0.0 K/mm3 07/24/18 10:00 Monocytes # (Manual) 1.7 K/mm3 (0.0-0.8) H 07/24/18 10:00 Eosinophils # (Manual) 0.6 K/mm3 (0.0-0.4) H 07/24/18 10:00 Basophils # (Manual) 0.0 K/mm3 (0.0-0.1) 07/24/18 10:00 Metamyelocytes # 0.0 K/mm3 07/24/18 10:00 Myelocytes # 0.0 K/mm3 07/24/18 10:00 Promyelocytes # 0.0 K/mm3 07/24/18 10:00 Blast Cells # 0.0 K/mm3 07/24/18 10:00 WBC Morphology Not Reportable 07/24/18 10:00 Hypersegmented Neuts Not Reportable 07/24/18 10:00 Hyposegmented Neuts Not Reportable 07/24/18 10:00 Hypogranular Neuts Not Reportable 07/24/18 10:00 Smudge Cells Not Reportable 07/24/18 10:00 Toxic Granulation Not Reportable 07/24/18 10:00 Toxic Vacuolation Not Reportable 07/24/18 10:00 Dohle Bodies Not Reportable 07/24/18 10:00 Pelger-Huet Anomaly Not Reportable 07/24/18 10:00 Denton Rods Not Reportable 07/24/18 10:00 Platelet Estimate Consistent w auto 07/24/18 10:00 Clumped Platelets Not Reportable 07/24/18 10:00 Plt Clumps, EDTA Not Reportable 07/24/18 10:00 Large Platelets Not Reportable 07/24/18 10:00 Giant Platelets Not Reportable 07/24/18 10:00 Platelet Satelliting Not Reportable 07/24/18 10:00 Plt Morphology Comment Not Reportable 07/24/18 10:00 RBC Morphology Not Reportable 07/24/18 10:00 Dimorphic RBCs Not Reportable 07/24/18 10:00 Polychromasia Not Reportable 07/24/18 10:00 Hypochromasia 2+ 07/24/18 10:00 Poikilocytosis Not Reportable 07/24/18 10:00 Anisocytosis Not Reportable 07/24/18 10:00 Microcytosis 2+ 07/24/18 10:00 Macrocytosis Not Reportable 07/24/18 10:00 Spherocytes Not Reportable 07/24/18 10:00 Pappenheimer Bodies Not Reportable 07/24/18 10:00 Sickle Cells Not Reportable 07/24/18 10:00 Target Cells 1+ 07/24/18 10:00 Tear Drop Cells Not Reportable 07/24/18 10:00 Ovalocytes Not Reportable 07/24/18 10:00 Helmet Cells Not Reportable 07/24/18 10:00 Tovar-Iron Belt Bodies Not Reportable 07/24/18 10:00 Cerulean Rings Not Reportable 07/24/18 10:00 Seven Cells Not Reportable 07/24/18 10:00 Bite Cells Not Reportable 07/24/18 10:00 Crenated Cell Not Reportable 07/24/18 10:00 Elliptocytes Not Reportable 07/24/18 10:00 Acanthocytes (Spur) Not Reportable 07/24/18 10:00 Rouleaux Not Reportable 07/24/18 10:00 Hemoglobin C Crystals Not Reportable 07/24/18 10:00 Schistocytes Not Reportable 07/24/18 10:00 Malaria parasites Not Reportable 07/24/18 10:00 Jimmy Bodies Not Reportable 07/24/18 10:00 Hem Pathologist Commnt No 07/24/18 10:00 Sodium 141 mmol/L (137-145) 07/25/18 05:00 Potassium 4.2 mmol/L (3.6-5.0) 07/25/18 05:00 Chloride 108.9 mmol/L (98-107) H 07/25/18 05:00 Carbon Dioxide 19 mmol/L (22-30) L 07/25/18 05:00 Anion Gap 17 mmol/L 07/25/18 05:00 BUN 24 mg/dL (7-17) H 07/25/18 05:00 Creatinine 1.0 mg/dL (0.7-1.2) 07/25/18 05:00 Estimated GFR > 60 ml/min 07/25/18 05:00 BUN/Creatinine Ratio 24 % 07/25/18 05:00 Glucose 95 mg/dL (65-100) 07/25/18 05:00 POC Glucose 70 (70-105) 07/26/18 08:25 Lactic Acid 1.60 mmol/L (0.7-2.0) 07/24/18 15:25 Calcium 8.4 mg/dL (8.4-10.2) 07/25/18 05:00 Total Bilirubin 0.30 mg/dL (0.1-1.2) 07/23/18 19:40 AST 41 units/L (5-40) H 07/23/18 19:40 ALT 22 units/L (7-56) 07/23/18 19:40 Alkaline Phosphatase 113 units/L (35-129) 07/23/18 19:40 Total Protein 8.2 g/dL (6.3-8.2) 07/23/18 19:40 Albumin 2.9 g/dL (3.9-5) L 07/23/18 19:40 Albumin/Globulin Ratio 0.5 % 07/23/18 19:40 Urine Color Yellow (Yellow) 07/23/18 18:30 Urine Turbidity Slightly-cloudy (Clear) 07/23/18 18:30 Urine pH 5.0 (5.0-7.0) 07/23/18 18:30 Ur Specific [place] 1.012 (1.003-1.030) 07/23/18 18:30 Urine Protein 30 mg/dl mg/dL (Negative) 07/23/18 18:30 Urine Glucose (UA) Neg mg/dL (Negative) 07/23/18 18:30 Urine Ketones Neg mg/dL (Negative) 07/23/18 18:30 Urine Blood Mod (Negative) 07/23/18 18:30 Urine Nitrite Neg (Negative) 07/23/18 18:30 Urine Bilirubin Neg (Negative) 07/23/18 18:30 Urine Urobilinogen < 2.0 mg/dL (<2.0) 07/23/18 18:30 Ur Leukocyte Esterase Lg (Negative) 07/23/18 18:30 Urine WBC (Auto) 75.0 /HPF (0.0-6.0) H 07/23/18 18:30 Urine RBC (Auto) 83.0 /HPF (0.0-6.0) 07/23/18 18:30 U Epithel Cells (Auto) < 1.0 /HPF (0-13.0) 07/23/18 18:30 Urine Bacteria (Auto) 3+ /HPF (Negative) 07/23/18 18:30 Ur Transition Epith Cell 1 /HPF 07/23/18 18:30 Urine Mucus Few /HPF 07/23/18 18:30 Urine Yeast (Budding) 1+ /HPF 07/23/18 18:30 Nutrition/Malnutrition Assess - Dietary Evaluation Nutrition/Malnutrition Findings: Nutrition Notes Start: 07/25/18 11:48 Freq: Status: Active Protocol: Document 07/25/18 11:48 OH (Rec: 07/25/18 12:03 OH [id number]) Nutrition Notes Need for Assessment generated from: [facility] Initial or Follow up Assessment Current Diagnoses Sepsis Hypertension Other Pertinent Diagnosis sacral wound; lower leg wounds ; UTI; HX CVA Current Diet CARDIAC/CONSISTENT CHO Labs/Tests K+ 4.2 ALB 2.9 GLU 98 HGB 9.7 Medications Humalog lovenox Height 5 ft Weight 136.5 kg [place] Body Weight (lbs) 100.0 BMI 58.7 Intake Prior to Admission Excellent WEIGHT STATUS MORBIDLY OBESE Subjective/Other Information Pt. seen for skin risk consult . Pt. states she has been controlling DM by diet. She does have a PCP that assists DM. Pt. reports she has had [facility] before. Pt. noted to have sacral wound/buttocks/ both lower leg wounds. Percent of energy/protein needs met: >75%/75% Burn Absent Trauma Absent GI SYMPTOMS None CURRENT %PO GOOD (75-100%) #1 Nutrition Diagnoses Increased nutrient needs ( specify in comment below) Comments: protein Etiology increased nutrient needs for wound healing As Evidenced by Signs and Symptoms wounds on lower legs/sacral wound Diagnosis Progress(for reassessment Continues documentation) Is patient on ventilator? No Is Patient Ambulatory and/or Out of Bed No REE-([facility]-confined to bed) 2308.680 Kcal/Kg value to use for calculation 12 Approximate Energy Requirements Using 1638 kcal/Kg Calculation Used for Recommendations Kcal/kg Additional Notes adj bw 90.97 kgs Protein: 1-1.5 g/kg/adj bw (90 -136 g/day) FLUID: 1 mL/kcal Malnutrition Assessment Malnutrition Related to Morbid Obesity BMI>OR EQUAL TO 40 Clinical Findings Show: Moderate Malnutrition Nutrition Intervention Change Diet Order: Cont CARDIAC/Consistent CHO Add Supplement/Snack (indicate name/kcal [facility] BID /protein ) Provides kCal: 190 Provides Protein (gm) 5 Goal #1 cont to meet >75% PRO/KCAL needs through po intake Anticipated Discharge Needs: unable to determine at this time Follow-Up By: 07/29/18 Additional Comments f/u: tolerance to [facility]; po intake
--- NOTE | 2018-07-26 11:33 | Event Note ---
Date: 07/26/18 Consult order noted for bilateral leg wounds and sacral ulcer. Wound RN photos reviewed. Wounds appear clean. Review of patient's chart and prior hospitalizations reveal multiple admissions for leg wounds and infection. Patient currently managed as outpatient at [place] [facility]. Will evaluate wounds with accountant tomorrow and make further recommendations. Continue current management per medical team.
[2018-07-26] MEDS: DIFLUCAN PO SCH (12:19)
--- NOTE | 2018-07-26 12:39 | Consultation ---
History of Present Illness - Reason for Consult Consult date: 07/26/18 leg wounds - History of Present Illness Patient with a history of chronic wounds to bilateral lower extremities and bilateral lower extremity swelling. Her initial presentation was for a UTI for which she is currently being treated. The patient receives vascular care for her lower extremities from Dr. Stewart in [place]. Additionally, the patient is currently receiving wound care at [facility]. Past History Past Medical History: diabetes, hypertension, stroke Past Surgical History: No surgical history Social history: lives with family Medications and Allergies Allergies Allergy/AdvReac Type Severity Reaction Status Date / Time No Known Allergies Allergy Unverified 11/01/15 12:20 Home Medications Medication Instructions Recorded Confirmed Last Taken Type Baclofen [Lioresal] 5 mg PO TID 08/19/15 07/23/18 09/17/17 History Amitriptyline [Elavil] 50 mg PO QHS #30 tablet 09/21/17 07/23/18 Unknown Rx Aspirin [Aspirin TAB] 325 mg PO DAILY #30 tablet 09/21/17 07/23/18 Unknown Rx buPROPion [Wellbutrin] 100 mg PO BID #60 tablet 09/21/17 07/23/18 Unknown Rx Carvedilol [Coreg] 6.25 mg PO BID 07/23/18 07/23/18 Unknown History Ciprofloxacin HCl [Ciprofloxacin 500 mg PO BID 07/23/18 07/23/18 Unknown History TAB] Famotidine [Pepcid] 40 mg PO QDAY 07/23/18 07/23/18 Unknown History Gabapentin [Neurontin] 300 mg PO Q8HR PRN 07/23/18 07/23/18 Unknown History Lisinopril [Zestril] 5 mg PO QDAY 07/23/18 07/23/18 Unknown History Omeprazole 40 mg PO QDAY 07/23/18 07/23/18 Unknown History Potassium Chloride 10 meq PO QDAY 07/23/18 07/23/18 Unknown History Tramadol HCl [Ultram] 1 - 2 tab PO Q6H PRN 07/23/18 07/23/18 Unknown History Active Meds: Active Medications Acetaminophen (Tylenol) 650 mg PO Q4H PRN PRN Reason: Pain MILD(1-3)/Fever >100.5/FRANCOIS Amitriptyline HCl (Elavil) 50 mg PO QHS XUAN Last Admin: 07/25/18 21:25 Dose: 50 mg Documented by: Aspirin (Aspirin) 325 mg PO DAILY [facility] Last Admin: 07/26/18 09:53 Dose: 325 mg Documented by: Baclofen (Lioresal) 5 mg PO TID [facility] Last Admin: 07/26/18 08:47 Dose: 5 mg Documented by: Bupropion HCl (Wellbutrin) 100 mg PO BID [facility] Last Admin: 07/26/18 09:55 Dose: 100 mg Documented by: Carvedilol (Coreg) 6.25 mg PO BID [facility] Last Admin: 07/26/18 09:54 Dose: 6.25 mg Documented by: Dextrose (D50w (25gm) Syringe) 50 ml IV PRN PRN PRN Reason: Hypoglycemia Enoxaparin Sodium (Lovenox) 40 mg SUB-Q QDAY@1000 XUAN Last Admin: 07/26/18 09:51 Dose: 40 mg Documented by: Famotidine (Pepcid) 40 mg PO QDAY [facility] Last Admin: 07/26/18 09:53 Dose: 40 mg Documented by: Fluconazole (Diflucan) 200 mg PO QDAY [facility] Stop: 08/01/18 11:59 Last Admin: 07/26/18 12:19 Dose: 200 mg Documented by: Gabapentin (Neurontin) 300 mg PO Q8HR PRN PRN Reason: Pain , Severe (7-10) Last Admin: 07/26/18 10:04 Dose: 300 mg Documented by: Hydralazine HCl (Apresoline) 5 mg IV Q6HR PRN PRN Reason: Hypertension Sodium Chloride (Nacl 0.45% 1000 Ml) 1,000 mls @ 125 mls/hr IV DIRECT [facility] Last Admin: 07/26/18 09:52 Dose: 125 mls/hr Documented by: Ceftriaxone Sodium (Rocephin/Ns 1 Gm/50 Ml) 1 gm in 50 mls @ 100 mls/hr IV Q 24HR [facility]; Protocol Last Admin: 07/26/18 09:52 Dose: 100 mls/hr Documented by: Insulin Human Lispro (Humalog) 0 unit SUB-Q ACHS [facility]; Protocol Last Admin: 07/26/18 12:02 Dose: Not Given Documented by: Lisinopril (Zestril) 5 mg PO QDAY [facility] Last Admin: 07/26/18 09:53 Dose: 5 mg Documented by: Morphine Sulfate (Morphine) 2 mg IV Q4H PRN PRN Reason: Pain , Severe (7-10) Last Admin: 07/25/18 13:26 Dose: 2 mg Documented by: Ondansetron HCl (Zofran) 4 mg IV Q4H PRN PRN Reason: Nausea And Vomiting Oxycodone/Acetaminophen (Percocet 5/325) 1 tab PO Q6H PRN PRN Reason: Pain, Moderate (4-6) Last Admin: 07/26/18 10:00 Dose: 1 tab Documented by: Pantoprazole Sodium (Protonix) 40 mg PO DAILY XUAN Sodium Chloride (Sodium Chloride Flush Syringe 10 Ml) 10 ml IV BID XUAN Last Admin: 07/26/18 09:55 Dose: 10 ml Documented by: Sodium Chloride (Sodium Chloride Flush Syringe 10 Ml) 10 ml IV PRN PRN PRN Reason: LINE FLUSH Review of Systems All systems: negative Exam - Constitutional Vitals: Temp Pulse Resp BP Pulse Ox 98.0 F 93 H 19 122/60 97 07/26/18 05:32 07/26/18 09:53 07/26/18 05:32 07/26/18 09:53 07/26/18 05:32 General appearance: Present: no acute distress, obese - EENT Eyes: Present: PERRL ENT: hearing intact - Neck Neck: Present: supple, normal ROM - Respiratory Respiratory effort: normal - Extremities Extremity abnormal: edema, other (I lateral lower extremity wounds) - Abdominal General gastrointestinal: Present: deferred Female genitourinary: Present: deferred - Rectal Rectal Exam: deferred - Psychiatric Psychiatric: appropriate mood/affect, cooperative Results - Labs CBC & Chem 7: 07/25/18 06:30 07/25/18 05:00 Labs: Abnormal lab results 07/25/18 07/25/18 07/25/18 Range/Units 12:54 16:32 21:22 POC Glucose 109 H 115 H 106 H (70-105) Assessment and Plan The patient currently has a care plan for her lower extremity wounds with both vascular and wound care on board. She would like physical therapy as well through [facility]. Patient states that the swelling in her legs improves following ambulation consistent with some degree of venous insufficiency. She is undergone treatment for both arterial disease as well as lymphedema in the outpatient setting. Would continue her current wound care while in the hospital or urinary tract infection and transition her vascular care to her outpatient physician.
[2018-07-26] MEDS: MORPHINE IV PRN (15:19)
[2018-07-26] MEDS: ELAVIL PO SCH (21:11)
[2018-07-27] MEDS: HumaLOG SUB-Q SCH ×5 (00:39→22:00)
[2018-07-27] MEDS: PERCOCET 5/325 PO PRN ×2 (08:01→19:00)
[2018-07-27] MEDS: LIORESAL PO SCH ×3 (08:02→20:00)
--- NOTE | 2018-07-27 09:02 | Progress Note ---
Assessment and Plan Assessment and plan: Sepsis due to UTI. Continue Ceftriaxone UTI. Ceftriaxone Urine Cx in progress She was just discharged from ED at [facility] with diagnosis of UTI few days prior to this admission She has been on ceftriaxone. Urine culture shows A Baumanniia resistant to ceftriaxone and most other antibiotics. Will therefore consult ID Physician History of stroke with residual right sided weakness Bilateral leg ulcers. Bilateral post thigh ulcers Wound care nurse consulted Consulted gen surg Consult vasc Surg depression. Psych following Hypertension. Monitor BP Diabetes mellittus type 2. Fingerstick glucose q ac and hs Full code status Discussed with case management about possible placement History Interval history: Generalized weakness Multiple chronic decubitus ulcers depressed Hospitalist Physical - Physical exam Narrative exam: GEN: Not in acute distress, morbidly obese HEENT: Normocephalic, atraumatic, Neck: supple, No JVD Lungs: clear to auscultation bilaterally, no rhonchi, no wheeze Heart:S1 and S2 regular, no murmurs, rubs or gallop, Abd:soft, tender suprapubic, no rebound, normal bowel sounds Ext: Bilat lower ext edema, bilateral large leg ulcers covered with dressi ng,bilat post thigh ulcers Neuro: Awake,alert, residual right sided weakness from previous stroke Skin:sacral decub ulcer - Constitutional Vitals: Temp Pulse Resp BP Pulse Ox 98.0 F 99 H 20 132/71 97 07/27/18 06:07 07/27/18 06:07 07/27/18 08:01 07/27/18 06:07 07/27/18 06:07 General appearance: Present: no acute distress, obese Results - Labs CBC & Chem 7: 07/25/18 06:30 07/25/18 05:00 Labs: Laboratory Last Values WBC 11.5 K/mm3 (4.5-11.0) H 07/25/18 06:30 RBC 4.08 M/mm3 (3.65-5.03) 07/25/18 06:30 Hgb 8.1 gm/dl (10.1-14.3) L 07/25/18 06:30 Hct 25.6 % (30.3-42.9) L 07/25/18 06:30 MCV 63 fl (79-97) L 07/25/18 06:30 MCH 20 pg (28-32) L 07/25/18 06:30 MCHC 32 % (30-34) 07/25/18 06:30 RDW 19.2 % (13.2-15.2) H 07/25/18 06:30 Plt Count 592 K/mm3 (140-440) H 07/25/18 06:30 Lymph % (Auto) Side Puller 07/24/18 10:00 Person % (Auto) Side Puller 07/24/18 10:00 Eos % (Auto) Side Puller 07/24/18 10:00 Baso % (Auto) Side Puller 07/24/18 10:00 Lymph # Side Puller 07/24/18 10:00 Person # Side Puller 07/24/18 10:00 Eos # Side Puller 07/24/18 10:00 Baso # Side Puller 07/24/18 10:00 Add Manual Diff Complete 07/24/18 10:00 Total Counted 100 07/24/18 10:00 Seg Neutrophils % Side Puller 07/24/18 10:00 Seg Neuts % (Manual) 63.0 % (40.0-70.0) 07/24/18 10:00 Band Neutrophils % 1.0 % 07/24/18 10:00 Lymphocytes % (Manual) 17.0 % (13.4-35.0) 07/24/18 10:00 Reactive Lymphs % (Man) 0 % 07/24/18 10:00 Monocytes % (Manual) 14.0 % (0.0-7.3) H 07/24/18 10:00 Eosinophils % (Manual) 5.0 % (0.0-4.3) H 07/24/18 10:00 Basophils % (Manual) 0 % (0.0-1.8) 07/24/18 10:00 Metamyelocytes % 0 % 07/24/18 10:00 Myelocytes % 0 % 07/24/18 10:00 Promyelocytes % 0 % 07/24/18 10:00 Blast Cells % 0 % 07/24/18 10:00 Nucleated RBC % Not Reportable 07/24/18 10:00 Seg Neutrophils # Side Puller 07/24/18 10:00 Seg Neutrophils # Man 7.6 K/mm3 (1.8-7.7) 07/24/18 10:00 Band Neutrophils # 0.1 K/mm3 07/24/18 10:00 Lymphocytes # (Manual) 2.1 K/mm3 (1.2-5.4) 07/24/18 10:00 Abs React Lymphs (Man) 0.0 K/mm3 07/24/18 10:00 Monocytes # (Manual) 1.7 K/mm3 (0.0-0.8) H 07/24/18 10:00 Eosinophils # (Manual) 0.6 K/mm3 (0.0-0.4) H 07/24/18 10:00 Basophils # (Manual) 0.0 K/mm3 (0.0-0.1) 07/24/18 10:00 Metamyelocytes # 0.0 K/mm3 07/24/18 10:00 Myelocytes # 0.0 K/mm3 07/24/18 10:00 Promyelocytes # 0.0 K/mm3 07/24/18 10:00 Blast Cells # 0.0 K/mm3 07/24/18 10:00 WBC Morphology Not Reportable 07/24/18 10:00 Hypersegmented Neuts Not Reportable 07/24/18 10:00 Hyposegmented Neuts Not Reportable 07/24/18 10:00 Hypogranular Neuts Not Reportable 07/24/18 10:00 Smudge Cells Not Reportable 07/24/18 10:00 Toxic Granulation Not Reportable 07/24/18 10:00 Toxic Vacuolation Not Reportable 07/24/18 10:00 Dohle Bodies Not Reportable 07/24/18 10:00 Pelger-Huet Anomaly Not Reportable 07/24/18 10:00 [place] Rods Not Reportable 07/24/18 10:00 Platelet Estimate Consistent w auto 07/24/18 10:00 Clumped Platelets Not Reportable 07/24/18 10:00 Plt Clumps, EDTA Not Reportable 07/24/18 10:00 Large Platelets Not Reportable 07/24/18 10:00 Giant Platelets Not Reportable 07/24/18 10:00 Platelet Satelliting Not Reportable 07/24/18 10:00 Plt Morphology Comment Not Reportable 07/24/18 10:00 RBC Morphology Not Reportable 07/24/18 10:00 Dimorphic RBCs Not Reportable 07/24/18 10:00 Polychromasia Not Reportable 07/24/18 10:00 Hypochromasia 2+ 07/24/18 10:00 Poikilocytosis Not Reportable 07/24/18 10:00 Anisocytosis Not Reportable 07/24/18 10:00 Microcytosis 2+ 07/24/18 10:00 Macrocytosis Not Reportable 07/24/18 10:00 Spherocytes Not Reportable 07/24/18 10:00 Pappenheimer Bodies Not Reportable 07/24/18 10:00 Sickle Cells Not Reportable 07/24/18 10:00 Target Cells 1+ 07/24/18 10:00 Tear Drop Cells Not Reportable 07/24/18 10:00 Ovalocytes Not Reportable 07/24/18 10:00 Helmet Cells Not Reportable 07/24/18 10:00 [place] Bodies Not Reportable 07/24/18 10:00 [place] Rings Not Reportable 07/24/18 10:00 [place] Cells Not Reportable 07/24/18 10:00 Bite Cells Not Reportable 07/24/18 10:00 Crenated Cell Not Reportable 07/24/18 10:00 Elliptocytes Not Reportable 07/24/18 10:00 Acanthocytes (Spur) Not Reportable 07/24/18 10:00 Rouleaux Not Reportable 07/24/18 10:00 Hemoglobin C Crystals Not Reportable 07/24/18 10:00 Schistocytes Not Reportable 07/24/18 10:00 Malaria parasites Not Reportable 07/24/18 10:00 Jimmy Bodies Not Reportable 07/24/18 10:00 Hem Pathologist Commnt No 07/24/18 10:00 Sodium 141 mmol/L (137-145) 07/25/18 05:00 Potassium 4.2 mmol/L (3.6-5.0) 07/25/18 05:00 Chloride 108.9 mmol/L (98-107) H 07/25/18 05:00 Carbon Dioxide 19 mmol/L (22-30) L 07/25/18 05:00 Anion Gap 17 mmol/L 07/25/18 05:00 BUN 24 mg/dL (7-17) H 07/25/18 05:00 Creatinine 1.0 mg/dL (0.7-1.2) 07/25/18 05:00 Estimated GFR > 60 ml/min 07/25/18 05:00 BUN/Creatinine Ratio 24 % 07/25/18 05:00 Glucose 95 mg/dL (65-100) 07/25/18 05:00 POC Glucose 83 (70-105) 07/27/18 08:04 Lactic Acid 1.60 mmol/L (0.7-2.0) 07/24/18 15:25 Calcium 8.4 mg/dL (8.4-10.2) 07/25/18 05:00 Total Bilirubin 0.30 mg/dL (0.1-1.2) 07/23/18 19:40 AST 41 units/L (5-40) H 07/23/18 19:40 ALT 22 units/L (7-56) 07/23/18 19:40 Alkaline Phosphatase 113 units/L (35-129) 07/23/18 19:40 Total Protein 8.2 g/dL (6.3-8.2) 07/23/18 19:40 Albumin 2.9 g/dL (3.9-5) L 07/23/18 19:40 Albumin/Globulin Ratio 0.5 % 07/23/18 19:40 Urine Color Yellow (Yellow) 07/23/18 18:30 Urine Turbidity Slightly-cloudy (Clear) 07/23/18 18:30 Urine pH 5.0 (5.0-7.0) 07/23/18 18:30 Ur Specific Golden 1.012 (1.003-1.030) 07/23/18 18:30 Urine Protein 30 mg/dl mg/dL (Negative) 07/23/18 18:30 Urine Glucose (UA) Neg mg/dL (Negative) 07/23/18 18:30 Urine Ketones Neg mg/dL (Negative) 07/23/18 18:30 Urine Blood Mod (Negative) 07/23/18 18:30 Urine Nitrite Neg (Negative) 07/23/18 18:30 Urine Bilirubin Neg (Negative) 07/23/18 18:30 Urine Urobilinogen < 2.0 mg/dL (<2.0) 07/23/18 18:30 Ur Leukocyte Esterase Lg (Negative) 07/23/18 18:30 Urine WBC (Auto) 75.0 /HPF (0.0-6.0) H 07/23/18 18:30 Urine RBC (Auto) 83.0 /HPF (0.0-6.0) 07/23/18 18:30 U Epithel Cells (Auto) < 1.0 /HPF (0-13.0) 07/23/18 18:30 Urine Bacteria (Auto) 3+ /HPF (Negative) 07/23/18 18:30 Ur Transition Epith Cell 1 /HPF 07/23/18 18:30 Urine Mucus Few /HPF 07/23/18 18:30 Urine Yeast (Budding) 1+ /HPF 07/23/18 18:30 Nutrition/Malnutrition Assess - Dietary Evaluation Nutrition/Malnutrition Findings: Nutrition Notes Start: 07/25/18 11:48 Freq: Status: Active Protocol: Document 07/25/18 11:48 OH (Rec: 07/25/18 12:03 OH [id number]) Nutrition Notes Need for Assessment generated from: [facility] Initial or Follow up Assessment Current Diagnoses Sepsis Hypertension Other Pertinent Diagnosis sacral wound; lower leg wounds ; UTI; HX CVA Current Diet CARDIAC/CONSISTENT CHO Labs/Tests K+ 4.2 ALB 2.9 GLU 98 HGB 9.7 Medications Humalog lovenox Height 5 ft Weight 136.5 kg [place] Body Weight (lbs) 100.0 BMI 58.7 Intake Prior to Admission Excellent Weight Status Morbidly Obese Subjective/Other Information Pt. seen for skin risk consult . Pt. states she has been controlling DM by diet. She does have a PCP that assists DM. Pt. reports she has had [facility] before. Pt. noted to have sacral wound/buttocks/ both lower leg wounds. Percent of energy/protein needs met: >75%/75% Burn Absent Trauma Absent GI Symptoms None Current % PO GOOD (75-100%) #1 Nutrition Diagnoses Increased nutrient needs ( specify in comment below) Comments: protein Etiology increased nutrient needs for wound healing As Evidenced by Signs and Symptoms wounds on lower legs/sacral wound Diagnosis Progress(for reassessment Continues documentation) Is patient on ventilator? No Is Patient Ambulatory and/or Out of Bed No REE-([facility]-confined to bed) 2308.680 Kcal/Kg value to use for calculation 12 Approximate Energy Requirements Using 1638 kcal/Kg Calculation Used for Recommendations Kcal/kg Additional Notes adj bw 90.97 kgs Protein: 1-1.5 g/kg/adj bw (90 -136 g/day) FLUID: 1 mL/kcal Malnutrition Assessment Malnutrition Related to Morbid Obesity BMI>OR EQUAL TO 40 Clinical Findings Show: Moderate Malnutrition Nutrition Intervention Change Diet Order: Cont CARDIAC/Consistent CHO Add Supplement/Snack (indicate name/kcal [facility] BID /protein ) Provides kCal: 190 Provides Protein (gm) 5 Goal #1 cont to meet >75% PRO/KCAL needs through po intake Anticipated Discharge Needs: unable to determine at this time Follow-Up By: 07/29/18 Additional Comments f/u: tolerance to [facility]; po intake
[2018-07-27] MEDS: COREG PO SCH ×2 (10:25→22:26)
[2018-07-27] MEDS: DIFLUCAN PO SCH (10:25)
[2018-07-27] MEDS: PEPCID PO SCH (10:25)
[2018-07-27] MEDS: ZESTRIL PO SCH (10:25)
[2018-07-27] MEDS: ROCEPHIN/NS 1 GM/50 ML 1 GM/50 ML BAG IV SCH (10:26)
[2018-07-27] MEDS: ASPIRIN PO SCH (10:26)
[2018-07-27] MEDS: LOVENOX SUB-Q SCH (10:26)
[2018-07-27] MEDS: WELLBUTRIN PO SCH ×2 (10:27→22:26)
[2018-07-27] MEDS: SODIUM CHLORIDE FLUSH SYRINGE 10 ML IV SCH ×2 (10:27→22:00)
--- NOTE | 2018-07-27 13:14 | Consultation ---
History of Present Illness Consult date: 07/27/18 Chief complaint: leg wounds - History of present illness History of present illness: 48 yo f with hx of morbid obesity, CVA, b/l LE lymphedema who was brought to hospital by her cousin for weakness and sitting in her feces and urine for an unknown amount of time. The patient feels well today. She has been followed chronically at [facility] for lower extremity wounds. She states that the wounds have been present for a long time. It started with leg swelling and a blister. The blister was unroofed by a physician and healed. She states that after this she continued to get blisters which then became wounds. She has very limited mobility due to hx of CVA and obesity. She will get up to go to the bedside commode. She was living in a prison last year but is now living in an apartment with her sons. She denies f/c, cp, sob. Past History Past Medical History: diabetes, hypertension, stroke, other (morbid obesity, ambulatory dysfunction) Past Surgical History: No surgical history Social history: lives with family Family history: no significant family history Medications and Allergies Allergies Allergy/AdvReac Type Severity Reaction Status Date / Time No Known Allergies Allergy Unverified 11/01/15 12:20 Home Medications Medication Instructions Recorded Confirmed Last Taken Type Baclofen [Lioresal] 5 mg PO TID 08/19/15 07/23/18 09/17/17 History Amitriptyline [Elavil] 50 mg PO QHS #30 tablet 09/21/17 07/23/18 Unknown Rx Aspirin [Aspirin TAB] 325 mg PO DAILY #30 tablet 09/21/17 07/23/18 Unknown Rx buPROPion [Wellbutrin] 100 mg PO BID #60 tablet 09/21/17 07/23/18 Unknown Rx Carvedilol [Coreg] 6.25 mg PO BID 07/23/18 07/23/18 Unknown History Ciprofloxacin HCl [Ciprofloxacin 500 mg PO BID 07/23/18 07/23/18 Unknown History TAB] Famotidine [Pepcid] 40 mg PO QDAY 07/23/18 07/23/18 Unknown History Gabapentin [Neurontin] 300 mg PO Q8HR PRN 07/23/18 07/23/18 Unknown History Lisinopril [Zestril] 5 mg PO QDAY 07/23/18 07/23/18 Unknown History Omeprazole 40 mg PO QDAY 07/23/18 07/23/18 Unknown History Potassium Chloride 10 meq PO QDAY 07/23/18 07/23/18 Unknown History Tramadol HCl [Ultram] 1 - 2 tab PO Q6H PRN 07/23/18 07/23/18 Unknown History Active Meds: Active Medications Acetaminophen (Tylenol) 650 mg PO Q4H PRN PRN Reason: Pain MILD(1-3)/Fever >100.5/FRANCOIS Amitriptyline HCl (Elavil) 50 mg PO QHS [facility] Last Admin: 07/26/18 21:11 Dose: 50 mg Documented by: Aspirin (Aspirin) 325 mg PO DAILY [facility] Last Admin: 07/27/18 10:26 Dose: 325 mg Documented by: Baclofen (Lioresal) 5 mg PO TID [facility] Last Admin: 07/27/18 08:02 Dose: 5 mg Documented by: Bupropion HCl (Wellbutrin) 100 mg PO BID [facility] Last Admin: 07/27/18 10:27 Dose: 100 mg Documented by: Carvedilol (Coreg) 6.25 mg PO BID [facility] Last Admin: 07/27/18 10:25 Dose: 6.25 mg Documented by: Dextrose (D50w (25gm) Syringe) 50 ml IV PRN PRN PRN Reason: Hypoglycemia Enoxaparin Sodium (Lovenox) 40 mg SUB-Q QDAY@1000 [facility] Last Admin: 07/27/18 10:26 Dose: 40 mg Documented by: Famotidine (Pepcid) 40 mg PO QDAY [facility] Last Admin: 07/27/18 10:25 Dose: 40 mg Documented by: Fluconazole (Diflucan) 200 mg PO QDAY [facility] Stop: 08/01/18 11:59 Last Admin: 07/27/18 10:25 Dose: 200 mg Documented by: Gabapentin (Neurontin) 300 mg PO Q8HR PRN PRN Reason: Pain , Severe (7-10) Last Admin: 07/26/18 21:15 Dose: 300 mg Documented by: Hydralazine HCl (Apresoline) 5 mg IV Q6HR PRN PRN Reason: Hypertension Sodium Chloride (Nacl 0.45% 1000 Ml) 1,000 mls @ 125 mls/hr IV DIRECT [facility] Last Admin: 07/26/18 09:52 Dose: 125 mls/hr Documented by: Ceftriaxone Sodium (Rocephin/Ns 1 Gm/50 Ml) 1 gm in 50 mls @ 100 mls/hr IV Q24HR [facility]; Protocol Last Admin: 07/27/18 10:26 Dose: 100 mls/hr Documented by: Insulin Human Lispro (Humalog) 0 unit SUB-Q ACHS [facility]; Protocol Last Admin: 07/27/18 12:44 Dose: Not Given Documented by: Lisinopril (Zestril) 5 mg PO QDAY [facility] Last Admin: 07/27/18 10:25 Dose: 5 mg Documented by: Morphine Sulfate (Morphine) 2 mg IV Q4H PRN PRN Reason: Pain , Severe (7-10) Last Admin: 07/26/18 15:19 Dose: 2 mg Documented by: Ondansetron HCl (Zofran) 4 mg IV Q4H PRN PRN Reason: Nausea And Vomiting Oxycodone/Acetaminophen (Percocet 5/325) 1 tab PO Q6H PRN PRN Reason: Pain, Moderate (4-6) Last Admin: 07/27/18 08:01 Dose: 1 tab Documented by: Pantoprazole Sodium (Protonix) 40 mg PO DAILY [facility] Sodium Chloride (Sodium Chloride Flush Syringe 10 Ml) 10 ml IV BID [facility] Last Admin: 07/27/18 10:27 Dose: 10 ml Documented by: Sodium Chloride (Sodium Chloride Flush Syringe 10 Ml) 10 ml IV PRN PRN PRN Reason: LINE FLUSH Review of Systems All systems: negative (10 pt ROS performed and negative except for that listed in HPI) Exam Vital Signs Temp Pulse Resp BP Pulse Ox 97.9 F 85 18 177/84 100 07/23/18 18:05 07/23/18 18:05 07/23/18 18:05 07/23/18 18:05 07/23/18 18:05 Narrative exam: Gen: AAOx3. NAD ENT: no scleral icterus or conjunctival pallor CV: s1, S2+ resp: even and unlabored Abd: obese, ND Ext; bilateral lower extremity edema with dressings intact. There is serous dr ainage on the dressings. The right leg is slightly contracted. Results - Labs 07/25/18 06:30 07/25/18 05:00 Abnormal lab results 07/26/18 07/26/18 07/27/18 Range/Units 16:56 21:52 11:20 POC Glucose 120 H 160 H 126 H (70-105) - Imaging Additional studies: Wound photos reviewed - bilateral lower extremity and sacral wounds are clean with pink base. Assessment and Plan 48 yo F with 1. bilateral lower extremity lymphedema 2. bilateral lower extremity wounds 3. sacral wound - stage 2 4. morbid obesity 5. ambulatory dysfunction Plan: 1. continue wound care daily per rn document improvement specialist. Dressings already changed this am by RN 2. The patient is being evaluated for SNF placement. I agree with this disposition as she has very limited mobility and will not be able to offload sacrum or elevate legs on her own. 3. elevated bilateral lower extremities 4. no need for surgical debridement 5. patient may follow up in wound care center at [facility] upon discharge D/W Dr. Mitchell and Adri RN (Wound care)
[2018-07-27] MEDS: MORPHINE IV PRN (15:34)
--- NOTE | 2018-07-27 16:27 | Consultation ---
History of Present Illness - Reason for Consult Consult date: 07/27/18 UTI secondary to Acinetobacter Requesting physician: SHABNAM BARDALES - History of Present Illness The patient is a 48-year-old female with CVA, diabetes mellitus type 2, hypertension, bilateral lower extremity wounds, stage II sacral decubitus ulcer, morbid obesity, lymphedema presented to the emergency room blood bilateral leg swellings. She recently had developed urinary retention and was seen and emergency room at [place] and had a Back catheter placed. She was given IV ceftriaxone and discharged on oral ciprofloxacin. She appeared to return to the emergency room to have the Back catheter removed however she never went back to the ER. Here, she has been afebrile but noted to have leukocytosis. Wound care and general surgery were consulted due to her leg wounds, wounds appear to be with a clean base, no evidence of superinfection. Continue wound care was recommended. Her back catheter was removed here, she is currently voiding well. No nausea or vomiting. No new complaints. No urinary burning or pain. Review of Systems: General: no fevers,chills or rigors HEENT: no new visual disturbance Respiratory: No cough, sputum, hemoptysis or shortness of breath Cardiovascular: No chest pain, syncope Gastrointestinal: No nausea, vomiting or diarrhea Genitourinary: No dysuria or hematuria Musculoskeletal: No new or worsening neck pain or back pain Neurologic: No headaches, seizures Hematologic: No easy bruising or bleeding Endocrine: No night sweats or acute weight loss Skin: negative for rash, jaundice Psychiatric: No suicidal or homicidal ideation Past History Past Medical History: diabetes, hypertension, stroke, other (morbid obesity, ambulatory dysfunction) Past Surgical History: No surgical history Social history: lives with family Family history: no significant family history Medications and Allergies Allergies Allergy/AdvReac Type Severity Reaction Status Date / Time No Known Allergies Allergy Unverified 11/01/15 12:20 Home Medications Medication Instructions Recorded Confirmed Last Taken Type Baclofen [Lioresal] 5 mg PO TID 08/19/15 07/23/18 09/17/17 History Amitriptyline [Elavil] 50 mg PO QHS #30 tablet 09/21/17 07/23/18 Unknown Rx Aspirin [Aspirin TAB] 325 mg PO DAILY #30 tablet 09/21/17 07/23/18 Unknown Rx buPROPion [Wellbutrin] 100 mg PO BID #60 tablet 09/21/17 07/23/18 Unknown Rx Carvedilol [Coreg] 6.25 mg PO BID 07/23/18 07/23/18 Unknown History Ciprofloxacin HCl [Ciprofloxacin 500 mg PO BID 07/23/18 07/23/18 Unknown History TAB] Famotidine [Pepcid] 40 mg PO QDAY 07/23/18 07/23/18 Unknown History Gabapentin [Neurontin] 300 mg PO Q8HR PRN 07/23/18 07/23/18 Unknown History Lisinopril [Zestril] 5 mg PO QDAY 07/23/18 07/23/18 Unknown History Omeprazole 40 mg PO QDAY 07/23/18 07/23/18 Unknown History Potassium Chloride 10 meq PO QDAY 07/23/18 07/23/18 Unknown History Tramadol HCl [Ultram] 1 - 2 tab PO Q6H PRN 07/23/18 07/23/18 Unknown History Active Meds: Active Medications Acetaminophen (Tylenol) 650 mg PO Q4H PRN PRN Reason: Pain MILD(1-3)/Fever >100.5/FRANCOIS Amitriptyline HCl (Elavil) 50 mg PO QHS [facility] Last Admin: 07/26/18 21:11 Dose: 50 mg Documented by: Aspirin (Aspirin) 325 mg PO DAILY [facility] Last Admin: 07/27/18 10:26 Dose: 325 mg Documented by: Baclofen (Lioresal) 5 mg PO TID [facility] Last Admin: 07/27/18 15:34 Dose: 5 mg Documented by: Bupropion HCl (Wellbutrin) 100 mg PO BID [facility] Last Admin: 07/27/18 10:27 Dose: 100 mg Documented by: Carvedilol (Coreg) 6.25 mg PO BID [facility] Last Admin: 07/27/18 10:25 Dose: 6.25 mg Documented by: Dextrose (D50w (25gm) Syringe) 50 ml IV PRN PRN PRN Reason: Hypoglycemia Enoxaparin Sodium (Lovenox) 40 mg SUB-Q QDAY@1000 [facility] Last Admin: 07/27/18 10:26 Dose: 40 mg Documented by: Famotidine (Pepcid) 40 mg PO QDAY [facility] Last Admin: 07/27/18 10:25 Dose: 40 mg Documented by: Fluconazole (Diflucan) 200 mg PO QDAY [facility] Stop: 08/01/18 11:59 Last Admin: 07/27/18 10:25 Dose: 200 mg Documented by: Gabapentin (Neurontin) 300 mg PO Q8HR PRN PRN Reason: Pain , Severe (7-10) Last Admin: 07/26/18 21:15 Dose: 300 mg Documented by: Hydralazine HCl (Apresoline) 5 mg IV Q6HR PRN PRN Reason: Hypertension Sodium Chloride (Nacl 0.45% 1000 Ml) 1,000 mls @ 125 mls/hr IV DIRECT [facility] Last Admin: 07/26/18 09:52 Dose: 125 mls/hr Documented by: Ceftriaxone Sodium (Rocephin/Ns 1 Gm/50 Ml) 1 gm in 50 mls @ 100 mls/hr IV Q24HR [facility]; Protocol Last Admin: 07/27/18 10:26 Dose: 100 mls/hr Documented by: Insulin Human Lispro (Humalog) 0 unit SUB-Q ACHS [facility]; Protocol Last Admin: 07/27/18 12:44 Dose: Not Given Documented by: Lisinopril (Zestril) 5 mg PO QDAY [facility] Last Admin: 07/27/18 10:25 Dose: 5 mg Documented by: Morphine Sulfate (Morphine) 2 mg IV Q4H PRN PRN Reason: Pain , Severe (7-10) Last Admin: 07/27/18 15:34 Dose: 2 mg Documented by: Ondansetron HCl (Zofran) 4 mg IV Q4H PRN PRN Reason: Nausea And Vomiting Oxycodone/Acetaminophen (Percocet 5/325) 1 tab PO Q6H PRN PRN Reason: Pain, Moderate (4-6) Last Admin: 07/27/18 08:01 Dose: 1 tab Documented by: Pantoprazole Sodium (Protonix) 40 mg PO DAILY [facility] Sodium Chloride (Sodium Chloride Flush Syringe 10 Ml) 10 ml IV BID [facility] Last Admin: 07/27/18 10:27 Dose: 10 ml Documented by: Sodium Chloride (Sodium Chloride Flush Syringe 10 Ml) 10 ml IV PRN PRN PRN Reason: LINE FLUSH Physical Examination - Physical Exam Narrative exam: Physical Exam: Constitutional: Alert, cooperative. No acute distress. Morbid obesity Head, Ears, Nose: Normocephalic, atraumatic. External ears, nose normal Eyes: Conjunctivae/corneas clear. No icterus. No ptosis. Neck: Supple, no meningeal signs Oral: no thrush. Cardiovascular: S1, S2 normal. Respiratory: Good air entry, clear to auscultation bilaterally GI: Soft, non-tender; bowel sounds normal. No peritoneal signs Musculoskeletal: Bilateral extremities with circumferential wound with good granulation tissue and appears quite superficial. Severe lymphedema. Skin: No rash or abscess Hem/Lymphatic: No palpable cervical or supraclavicular nodes. No lymphangitis Psych: Mood ok. Affect normal Neurological: Awake, alert, oriented. No gross abnormality - Constitutional Vitals: Vital Signs Temp Pulse Resp BP Pulse Ox 98.1 F 95 H 20 111/44 100 07/27/18 11:15 07/27/18 11:15 07/27/18 15:34 07/27/18 11:15 07/27/18 11:15 Temperature -Last 24 Hours Temperature 98.1 F Temperature 98.0 F Temperature 98.0 F Temperature 97.9 F Results - Labs CBC & Chem 7: 07/25/18 06:30 07/25/18 05:00 Labs: Abnormal lab results 07/26/18 07/26/18 07/27/18 Range/Units 16:56 21:52 11:20 POC Glucose 120 H 160 H 126 H (70-105) - Imaging and Cardiology Chest x-ray: report reviewed, image reviewed (no evidence of pneumonia) Assessment and Plan Cultures: 07/23/2018 urine culture: Nataliya albicans, Acinetobacter 07/23/2018 blood culture: No growth Chest x-ray shows no evidence of pneumonia. A/P: 48-year-old female with CVA, diabetes mellitus type 2, hypertension, bilateral lower extremity wounds, stage II sacral decubitus ulcer, morbid obesity, lymphedema admitted with: 1) Sepsis secondary to Catheter associated UTI: recently placed back at OSH due to urinary retention, patient never followed up for back removal and voiding trial. UA consistent with pyuria and cultures growing Nataliya and MDR Acinetobacter. No evidence of bacteremia or pyelonephritis. Nataliya in urine generally does not need treatment except Back removal / exchange which was already done. Given her morbid obesity, DM, will give her one dose of Fluconazole. Will treat MDR Acinetobacter with IV Gentamicin. WBC has already improved. 2) B/L LE ulcerations in the setting of morbid obesity and lymphedema: needs continued wound care. No clinical concern for osteomyelitis. 3) Morbid obesity: patient planning bariatric surgery. Use adjusted body weight for Gentamicin dose. Recs: - discontinued current abx - ordered one dose of PO Fluconazole 400 mg - ordered IV Gentamicin 3 mg/kg q24 hours (with pharmacy PK consult), target trough: <1.0 mcg/ml. Risks of nephrotoxicity and ototoxicity were discussed with the patient. Advised monitoring of otologic symptoms such as the volume of conversation, the development of tinnitus, vertigo, or a feeling of fullness in the ears - will give one dose of fosfomycin tomorrow - continue wound care MD [facility] C: [phone] O: [phone] F: [phone]
[2018-07-27] MEDS ORDERED: GARAMYCIN IV SCH (17:00)
[2018-07-27] MEDS ORDERED: NACL 0.9% IV SCH (17:00)
[2018-07-27] MEDS ORDERED: DIFLUCAN PO ONE (18:00)
[2018-07-27] MEDS: GARAMYCIN/NS 120MG/100ML 120 MG/100 ML BAG IV SCH (18:32)
[2018-07-27] MEDS: NACL 0.45% 1000 ML 1,000 ML IV SCH (18:44)
[2018-07-27] MEDS: ELAVIL PO SCH (22:28)
[2018-07-28] MEDS: GARAMYCIN/NS 120MG/100ML 120 MG/100 ML BAG IV SCH ×2 (02:14→10:28)
[2018-07-28 06:08] LABS: Hemoglobin 7.5 gm/dl (10.1-14.3); Mean Corpuscular HGB Conc 31 % (30-34); Platelet Count 599 K/mm3 (140-440); Red Blood Count 3.76 M/mm3 (3.65-5.03)
[2018-07-28 06:15] LABS: Mean Corpuscular Hemoglobin 20 pg (28-32); Mean Corpuscular Volume 64 fl (79-97)
[2018-07-28 06:33] LABS: BUN/Creatinine Ratio 19; Blood Urea Nitrogen 19 mg/dL (7-17); Calcium 8.3 mg/dL (8.4-10.2); Hemolysis Index 6
[2018-07-28] MEDS: HumaLOG SUB-Q SCH ×4 (08:00→22:01)
[2018-07-28] MEDS: LIORESAL PO SCH ×3 (09:05→19:54)
[2018-07-28] MEDS: PERCOCET 5/325 PO PRN (09:05)
--- NOTE | 2018-07-28 09:51 | Progress Note ---
Assessment and Plan Assessment and plan: Patient is 48 yo with stroke with residual right sided weakness, decub ulcers legs, thighs,sacrum, hypertension, diabetes. She was brought in because her cousin found her sitting in urine and feces. She also complained of general weakness, difficulty taking care of self at home. Also she was recently pham gnosed wih UTI at [place] ED, sent home with back,asked to go back to remove back but she did not go. She is found to have Sepsis due to UTI, chronic ulcers, failure to thrive. case management working on placement. Sepsis due to UTI. Now on Unasyn, started by ID Physician UTI. She was just discharged from ED at [facility] with diagnosis of UTI few days prior to this admission She was initially put on ceftriaxone. Urine culture shows gino and A Baumanniia resistant to ceftriaxone. Consulted ID, started on Gentamicin, now switched to Unasyn History of stroke with residual right sided weakness Bilateral leg ulcers. Bilateral post thigh ulcers Wound care nurse following Consulted gen surg Consult vasc Surg Seen, no surgery/debridement needed depression. Psych following Hypertension. Monitor BP Diabetes mellittus type 2. Fingerstick glucose q ac and hs Full code status failure to thrive. She stays at home with 3 adult children in early 20s. Placement Discussed with case management, working on placement. May go when bed available after Antibiotic treatment recomended by ID History Interval history: Generalized weakness Multiple chronic decubitus ulcers depressed Hospitalist Physical - Physical exam Narrative exam: GEN: Not in acute distress, morbidly obese HEENT: Normocephalic, atraumatic, Neck: supple, No JVD Lungs: clear to auscultation bilaterally, no rhonchi, no wheeze Heart:S1 and S2 regular, no murmurs, rubs or gallop, Abd:soft,non tender, non distended, normal bowel sounds Ext: Bilat lower ext edema, bilateral large leg ulcers covered with dressing,bilat post thigh ulcers Neuro: Awake,alert, residual right sided weakness from previous stroke Skin:sacral decub ulcer - Constitutional Vitals: Temp Pulse Resp BP Pulse Ox 98.6 F 98 H 18 103/45 100 07/28/18 04:57 07/28/18 04:57 07/28/18 04:57 07/28/18 04:57 07/28/18 04:57 General appearance: Present: no acute distress, obese Results - Labs CBC & Chem 7: 07/28/18 05:54 07/28/18 05:54 Labs: Laboratory Last Values WBC 18.1 K/mm3 (4.5-11.0) H 07/28/18 05:54 RBC 3.76 M/mm3 (3.65-5.03) 07/28/18 05:54 Hgb 7.5 gm/dl (10.1-14.3) L 07/28/18 05:54 Hct 24.0 % (30.3-42.9) L 07/28/18 05:54 MCV 64 fl (79-97) L 07/28/18 05:54 MCH 20 pg (28-32) L 07/28/18 05:54 MCHC 31 % (30-34) 07/28/18 05:54 RDW 19.0 % (13.2-15.2) H 07/28/18 05:54 Plt Count 599 K/mm3 (140-440) H 07/28/18 05:54 Lymph % (Auto) Driver/Guide 07/24/18 10:00 [place] % (Auto) Driver/Guide 07/24/18 10:00 Eos % (Auto) Driver/Guide 07/24/18 10:00 Baso % (Auto) Driver/Guide 07/24/18 10:00 Lymph # Driver/Guide 07/24/18 10:00 [place] # Driver/Guide 07/24/18 10:00 Eos # Driver/Guide 07/24/18 10:00 Baso # Driver/Guide 07/24/18 10:00 Add Manual Diff Complete 07/24/18 10:00 Total Counted 100 07/24/18 10:00 Seg Neutrophils % Driver/Guide 07/24/18 10:00 Seg Neuts % (Manual) 63.0 % (40.0-70.0) 07/24/18 10:00 Band Neutrophils % 1.0 % 07/24/18 10:00 Lymphocytes % (Manual) 17.0 % (13.4-35.0) 07/24/18 10:00 Reactive Lymphs % (Man) 0 % 07/24/18 10:00 Monocytes % (Manual) 14.0 % (0.0-7.3) H 07/24/18 10:00 Eosinophils % (Manual) 5.0 % (0.0-4.3) H 07/24/18 10:00 Basophils % (Manual) 0 % (0.0-1.8) 07/24/18 10:00 Metamyelocytes % 0 % 07/24/18 10:00 Myelocytes % 0 % 07/24/18 10:00 Promyelocytes % 0 % 07/24/18 10:00 Blast Cells % 0 % 07/24/18 10:00 Nucleated RBC % Not Reportable 07/24/18 10:00 Seg Neutrophils # Driver/Guide 07/24/18 10:00 Seg Neutrophils # Man 7.6 K/mm3 (1.8-7.7) 07/24/18 10:00 Band Neutrophils # 0.1 K/mm3 07/24/18 10:00 Lymphocytes # (Manual) 2.1 K/mm3 (1.2-5.4) 07/24/18 10:00 Abs React Lymphs (Man) 0.0 K/mm3 07/24/18 10:00 Monocytes # (Manual) 1.7 K/mm3 (0.0-0.8) H 07/24/18 10:00 Eosinophils # (Manual) 0.6 K/mm3 (0.0-0.4) H 07/24/18 10:00 Basophils # (Manual) 0.0 K/mm3 (0.0-0.1) 07/24/18 10:00 Metamyelocytes # 0.0 K/mm3 07/24/18 10:00 Myelocytes # 0.0 K/mm3 07/24/18 10:00 Promyelocytes # 0.0 K/mm3 07/24/18 10:00 Blast Cells # 0.0 K/mm3 07/24/18 10:00 WBC Morphology Not Reportable 07/24/18 10:00 Hypersegmented Neuts Not Reportable 07/24/18 10:00 Hyposegmented Neuts Not Reportable 07/24/18 10:00 Hypogranular Neuts Not Reportable 07/24/18 10:00 Smudge Cells Not Reportable 07/24/18 10:00 Toxic Granulation Not Reportable 07/24/18 10:00 Toxic Vacuolation Not Reportable 07/24/18 10:00 Dohle Bodies Not Reportable 07/24/18 10:00 Pelger-Huet Anomaly Not Reportable 07/24/18 10:00 [place] Rods Not Reportable 07/24/18 10:00 Platelet Estimate Consistent w auto 07/24/18 10:00 Clumped Platelets Not Reportable 07/24/18 10:00 Plt Clumps, EDTA Not Reportable 07/24/18 10:00 Large Platelets Not Reportable 07/24/18 10:00 Giant Platelets Not Reportable 07/24/18 10:00 Platelet Satelliting Not Reportable 07/24/18 10:00 Plt Morphology Comment Not Reportable 07/24/18 10:00 RBC Morphology Not Reportable 07/24/18 10:00 Dimorphic RBCs Not Reportable 07/24/18 10:00 Polychromasia Not Reportable 07/24/18 10:00 Hypochromasia 2+ 07/24/18 10:00 Poikilocytosis Not Reportable 07/24/18 10:00 Anisocytosis Not Reportable 07/24/18 10:00 Microcytosis 2+ 07/24/18 10:00 Macrocytosis Not Reportable 07/24/18 10:00 Spherocytes Not Reportable 07/24/18 10:00 Pappenheimer Bodies Not Reportable 07/24/18 10:00 Sickle Cells Not Reportable 07/24/18 10:00 Target Cells 1+ 07/24/18 10:00 Tear Drop Cells Not Reportable 07/24/18 10:00 Ovalocytes Not Reportable 07/24/18 10:00 Helmet Cells Not Reportable 07/24/18 10:00 T[place]ar-[place] Bodies Not Reportable 07/24/18 10:00 [place] Rings Not Reportable 07/24/18 10:00 Seven Cells Not Reportable 07/24/18 10:00 Bite Cells Not Reportable 07/24/18 10:00 Crenated Cell Not Reportable 07/24/18 10:00 Elliptocytes Not Reportable 07/24/18 10:00 Acanthocytes (Spur) Not Reportable 07/24/18 10:00 Rouleaux Not Reportable 07/24/18 10:00 Hemoglobin C Crystals Not Reportable 07/24/18 10:00 Schistocytes Not Reportable 07/24/18 10:00 Malaria parasites Not Reportable 07/24/18 10:00 Jimmy Bodies Not Reportable 07/24/18 10:00 Hem Pathologist Commnt No 07/24/18 10:00 Sodium 142 mmol/L (137-145) 07/28/18 05:54 Potassium 4.8 mmol/L (3.6-5.0) 07/28/18 05:54 Chloride 109.3 mmol/L (98-107) H 07/28/18 05:54 Carbon Dioxide 22 mmol/L (22-30) 07/28/18 05:54 Anion Gap 16 mmol/L 07/28/18 05:54 BUN 19 mg/dL (7-17) H 07/28/18 05:54 Creatinine 1.0 mg/dL (0.7-1.2) 07/28/18 05:54 Estimated GFR > 60 ml/min 07/28/18 05:54 BUN/Creatinine Ratio 19 % 07/28/18 05:54 Glucose 98 mg/dL (65-100) 07/28/18 05:54 POC Glucose 95 (70-105) 07/28/18 07:47 Lactic Acid 1.60 mmol/L (0.7-2.0) 07/24/18 15:25 Calcium 8.3 mg/dL (8.4-10.2) L 07/28/18 05:54 Total Bilirubin 0.30 mg/dL (0.1-1.2) 07/23/18 19:40 AST 41 units/L (5-40) H 07/23/18 19:40 ALT 22 units/L (7-56) 07/23/18 19:40 Alkaline Phosphatase 113 units/L (35-129) 07/23/18 19:40 Total Protein 8.2 g/dL (6.3-8.2) 07/23/18 19:40 Albumin 2.9 g/dL (3.9-5) L 07/23/18 19:40 Albumin/Globulin Ratio 0.5 % 07/23/18 19:40 Urine Color Yellow (Yellow) 07/23/18 18:30 Urine Turbidity Slightly-cloudy (Clear) 07/23/18 18:30 Urine pH 5.0 (5.0-7.0) 07/23/18 18:30 Ur Specific [place] 1.012 (1.003-1.030) 07/23/18 18:30 Urine Protein 30 mg/dl mg/dL (Negative) 07/23/18 18:30 Urine Glucose (UA) Neg mg/dL (Negative) 07/23/18 18:30 Urine Ketones Neg mg/dL (Negative) 07/23/18 18:30 Urine Blood Mod (Negative) 07/23/18 18:30 Urine Nitrite Neg (Negative) 07/23/18 18:30 Urine Bilirubin Neg (Negative) 07/23/18 18:30 Urine Urobilinogen < 2.0 mg/dL (<2.0) 07/23/18 18:30 Ur Leukocyte Esterase Lg (Negative) 07/23/18 18:30 Urine WBC (Auto) 75.0 /HPF (0.0-6.0) H 07/23/18 18:30 Urine RBC (Auto) 83.0 /HPF (0.0-6.0) 07/23/18 18:30 U Epithel Cells (Auto) < 1.0 /HPF (0-13.0) 07/23/18 18:30 Urine Bacteria (Auto) 3+ /HPF (Negative) 07/23/18 18:30 Ur Transition Epith Cell 1 /HPF 07/23/18 18:30 Urine Mucus Few /HPF 07/23/18 18:30 Urine Yeast (Budding) 1+ /HPF 07/23/18 18:30 Nutrition/Malnutrition Assess - Dietary Evaluation Nutrition/Malnutrition Findings: Nutrition Notes Start: 07/25/18 11:48 Freq: Status: Active Protocol: Document 07/25/18 11:48 OH (Rec: 07/25/18 12:03 OH [id number]) Nutrition Notes Need for Assessment generated from: [facility] Initial or Follow up Assessment Current Diagnoses Sepsis Hypertension Other Pertinent Diagnosis sacral wound; lower leg wounds ; UTI; HX CVA Current Diet CARDIAC/CONSISTENT CHO Labs/Tests K+ 4.2 ALB 2.9 GLU 98 HGB 9.7 Medications Humalog lovenox Height 5 ft Weight 136.[address] [place] Body Weight (lbs) 100.0 BMI 58.7 Intake Prior to Admission Excellent Weight Status Morbidly Obese Subjective/Other Information Pt. seen for skin risk consult . Pt. states she has been controlling DM by diet. She does have a PCP that assists DM. Pt. reports she has had [facility] before. Pt. noted to have sacral wound/buttocks/ both lower leg wounds. Percent of energy/protein needs met: >75%/75% Burn Absent Trauma Absent GI Symptoms None Current % PO GOOD (75-100%) #1 Nutrition Diagnoses Increased nutrient needs ( specify in comment below) Comments: protein Etiology increased nutrient needs for wound healing As Evidenced by Signs and Symptoms wounds on lower legs/sacral wound Diagnosis Progress(for reassessment Continues documentation) Is patient on ventilator? No Is Patient Ambulatory and/or Out of Bed No REE-([place]-St. Jeor-confined to bed) 2308.680 Kcal/Kg value to use for calculation 12 Approximate Energy Requirements Using 1638 kcal/Kg Calculation Used for Recommendations Kcal/kg Additional Notes adj bw 90.97 kgs Protein: 1-1.5 g/kg/adj bw (90 -136 g/day) FLUID: 1 mL/kcal Malnutrition Assessment Malnutrition Related to Morbid Obesity BMI>OR EQUAL TO 40 Clinical Findings Show: Moderate Malnutrition Nutrition Intervention Change Diet Order: Cont CARDIAC/Consistent CHO Add Supplement/Snack (indicate name/kcal [facility] BID /protein ) Provides kCal: 190 Provides Protein (gm) 5 Goal #1 cont to meet >75% PRO/KCAL needs through po intake Anticipated Discharge Needs: unable to determine at this time Follow-Up By: 07/29/18 Additional Comments f/u: tolerance to [facility]; po intake
[2018-07-28] MEDS: LOVENOX SUB-Q SCH (10:29)
[2018-07-28] MEDS: COREG PO SCH ×2 (10:29→22:07)
[2018-07-28] MEDS: ASPIRIN PO SCH (10:29)
[2018-07-28] MEDS: WELLBUTRIN PO SCH ×2 (10:30→22:06)
[2018-07-28] MEDS: PEPCID PO SCH (10:30)
[2018-07-28] MEDS: SODIUM CHLORIDE FLUSH SYRINGE 10 ML IV SCH ×2 (10:31→22:10)
[2018-07-28] MEDS: ZESTRIL PO SCH (10:31)
--- NOTE | 2018-07-28 10:58 | Progress Note ---
Assessment and Plan Cultures: 07/23/2018 urine culture: Nataliya albicans, Acinetobacter 07/23/2018 blood culture: No growth Chest x-ray shows no evidence of pneumonia. A/P: 48-year-old female with CVA, diabetes mellitus type 2, hypertension, bilateral lower extremity wounds, stage II sacral decubitus ulcer, morbid obesity, lymphedema admitted with: 1) Sepsis secondary to Catheter associated UTI: recently placed back at OSH due to urinary retention, patient never followed up for back removal and voiding trial. UA consistent with pyuria and cultures growing Nataliya and MDR Acinetobacter. No evidence of bacteremia or pyelonephritis. Nataliya in urine generally does not need treatment except Back removal / exchange which was already done. Given her morbid obesity, DM, will give her one dose of Fl uconazole. Will treat MDR Acinetobacter with IV Gentamicin. WBC has already improved. 2) B/L LE ulcerations in the setting of morbid obesity and lymphedema: needs continued wound care. No clinical concern for osteomyelitis. 3) Morbid obesity: patient planning bariatric surgery. Use adjusted body weight for Gentamicin dose. 4) Leukocytosis - repeat CBC with manual Diff ordered, +/- Chronic leukocytosis Recs: -discontinue Gentamacin- risks of nephrotoxicity and ototoxicity -Start Unasyn 3 gms, IV q 6 hours for acinetobacter, susceptible per discussion with microlab. Fosfomycin could not be tested. -Continue wound care -continue contact precautions [facility] M: [phone] O:[phone] Subjective Date of service: 07/28/18 Interval history: Patient seen an examined. Denies otologic symptoms, earache, ear fullness or tinnitus. Nurses notes, labs and reports reviewed, discussed with patient. Objective - Exam Narrative Exam: Constitutional: Alert, cooperative. No acute distress. Morbid obesity Head, Ears, Nose: Normocephalic, atraumatic. External ears, nose normal Eyes: Conjunctivae/corneas clear. No icterus. No ptosis. Neck: Supple, no meningeal signs Oral: no thrush. Cardiovascular: S1, S2 normal. Respiratory: Good air entry, clear to auscultation bilaterally GI: Soft, non-tender; bowel sounds normal. No peritoneal signs Musculoskeletal: Bilateral extremities with circumferential wound with good granulation tissue and appears quite superficial. Severe lymphedema. Skin: No rash or abscess Hem/Lymphatic: No palpable cervical or supraclavicular nodes. No lymphangitis Psych: Mood ok. Affect normal Neurological: Awake, alert, oriented. No gross abnormality - Constitutional Vitals: Vital Signs Temp Pulse Resp BP Pulse Ox 98.6 F 101 H 18 116/41 100 07/28/18 04:57 07/28/18 10:31 07/28/18 04:57 07/28/18 10:31 07/28/18 04:57 Temperature -Last 24 Hours Temperature 98.6 F Temperature 98.0 F Temperature 98.6 F Temperature 98.1 F - Labs CBC & Chem 7: 07/28/18 05:54 07/28/18 05:54 Labs: Abnormal lab results 07/27/18 07/27/18 07/27/18 Range/Units 11:20 16:34 20:50 WBC (4.5-11.0) K/mm3 Hgb (10.1-14.3) gm/dl Hct (30.3-42.9) % MCV (79-97) fl MCH (28-32) pg RDW (13.2-15.2) % Plt Count (140-440) K/mm3 Chloride (98-107) mmol/L BUN (7-17) mg/dL POC Glucose 126 H 130 H 122 H (70-105) Calcium (8.4-10.2) mg/dL 07/28/18 07/28/18 Range/Units 05:54 05:54 WBC 18.1 H (4.5-11.0) K/mm3 Hgb 7.5 L (10.1-14.3) gm/dl Hct 24.0 L (30.3-42.9) % MCV 64 L (79-97) fl MCH 20 L (28-32) pg RDW 19.0 H (13.2-15.2) % Plt Count 599 H (140-440) K/mm3 Chloride 109.3 H (98-107) mmol/L BUN 19 H (7-17) mg/dL POC Glucose (70-105) Calcium 8.3 L (8.4-10.2) mg/dL
[2018-07-28] MEDS: NEURONTIN PO PRN (13:13)
[2018-07-28] MEDS: NACL 0.45% 1000 ML 1,000 ML IV SCH (13:14)
[2018-07-28] MEDS: UNASYN/NS 3 GM/100 ML 3 GM/100 ML BAG IV SCH ×2 (15:41→17:52)
[2018-07-28] MEDS: MORPHINE IV PRN (19:52)
[2018-07-28] MEDS: ELAVIL PO SCH (22:08)
[2018-07-29] MEDS: UNASYN/NS 3 GM/100 ML 3 GM/100 ML BAG IV SCH ×4 (00:10→19:32)
[2018-07-29] MEDS: MORPHINE IV PRN (05:09)
[2018-07-29 05:14] LABS: Hematocrit 25.4 % (30.3-42.9); Hemoglobin 7.8 gm/dl (10.1-14.3); Mean Corpuscular HGB Conc 31 % (30-34); Platelet Count 647 K/mm3 (140-440); Red Blood Count 3.92 M/mm3 (3.65-5.03); Red Cell Distribution Width 19.6 % (13.2-15.2)
[2018-07-29 05:19] LABS: Mean Corpuscular Hemoglobin 20 pg (28-32); Mean Corpuscular Volume 65 fl (79-97)
[2018-07-29 05:38] LABS: BUN/Creatinine Ratio 15; Blood Urea Nitrogen 15 mg/dL (7-17); Calcium 8.5 mg/dL (8.4-10.2); Hemolysis Index 1
[2018-07-29] MEDS ORDERED: GARAMYCIN 100 MG in NACL 0.9% 100 ML IV SCH (06:00)
[2018-07-29] MEDS ORDERED: GARAMYCIN 400 MG in NACL 0.9% 100 ML IV SCH (06:00)
[2018-07-29 07:05] LABS: Band Neutrophils # (Manual) 1.6 K/mm3; Basophils % (Manual) 0 % (0.0-1.8); Myelocytes # (Manual) 0.3 K/mm3; Total Cells Counted 100
[2018-07-29 07:06] LABS: Anisocytosis 2+; Giant Platelets Few; Hypochromasia 2+; Stomatocytes Few
[2018-07-29 07:07] LABS: Platelet Estimate Appears Increased; Target Cells Few
--- NOTE | 2018-07-29 08:44 | Progress Note ---
Assessment and Plan Cultures: 07/23/2018 urine culture: Nataliya albicans, Acinetobacter 07/23/2018 blood culture: No growth Chest x-ray shows no evidence of pneumonia. A/P: 48-year-old female with CVA, diabetes mellitus type 2, hypertension, bilateral lower extremity wounds, stage II sacral decubitus ulcer, morbid obesity, lymphedema admitted with: 1) Sepsis secondary to Catheter associated UTI: recently placed back at OSH due to urinary retention, patient never followed up for back removal and voiding trial. UA consistent with pyuria and cultures growing Nataliya and MDR Acinetobacter. No evidence of bacteremia or pyelonephritis. Nataliya in urine generally does not need treatment except Back removal / exchange which was already done. Given her morbid obesity, DM, will give her one dose of Fl uconazole. Will treat MDR Acinetobacter with IV Gentamicin. WBC has already improved. 2) B/L LE ulcerations in the setting of morbid obesity and lymphedema: needs continued wound care. No clinical concern for osteomyelitis. 3) Morbid obesity: patient planning bariatric surgery. Use adjusted body weight for Gentamicin dose. 4) Leukocytosis - repeat CBC with manual Diff ordered, +/- Chronic leukocytosis Recs: -Continue Unasyn 3 gms, IV q 6 hours for acinetobacter, total 3 days ending 07/30/18 -Continue wound care -continue contact precautions Dr. Massey will be taking call from home on Wednesday, and rounding in the hospital on Wednesday. [facility] M: [id number] O:[phone] Subjective Date of service: 07/29/18 Interval history: Patient seen an examined. Denies fevers, SOB , Rashes or Diarrhea. States that she is having generalized discomfort. Nurses notes, labs and reports reviewed, discussed with patient. Objective - Exam Narrative Exam: Constitutional: Alert, cooperative. Generalized discomfort. Morbid obesity Head, Ears, Nose: Normocephalic, atraumatic. External ears, nose normal Eyes: Conjunctivae/corneas clear. No icterus. No ptosis. Neck: Supple, no meningeal signs Oral: no thrush. Cardiovascular: S1, S2 normal. Respiratory: Good air entry, clear to auscultation bilaterally GI: Soft, non-tender; bowel sounds normal. No peritoneal signs Musculoskeletal: Bilateral extremities with circumferential wound with good granulation tissue and appears quite superficial. Severe lymphedema. Skin: No rash or abscess Hem/Lymphatic: No palpable cervical or supraclavicular nodes. No lymphangitis Psych: Mood ok. Affect normal Neurological: Awake, alert, oriented. No gross abnormality - Constitutional Vitals: Vital Signs Temp Pulse Resp BP Pulse Ox 98.7 F 94 H 20 114/44 96 07/29/18 06:06 07/29/18 06:06 07/29/18 06:06 07/29/18 06:06 07/29/18 06:06 Temperature -Last 24 Hours Temperature 98.7 F Temperature 99.3 F Temperature 99.9 F Temperature 98.8 F - Labs CBC & Chem 7: 07/29/18 04:38 07/29/18 04:38 Labs: Abnormal lab results 07/28/18 07/29/18 Range/Units 11:39 04:38 WBC 17.4 H (4.5-11.0) K/mm3 Hgb 7.8 L (10.1-14.3) gm/dl Hct 25.4 L (30.3-42.9) % MCV 65 L (79-97) fl MCH 20 L (28-32) pg RDW 19.6 H (13.2-15.2) % Plt Count 647 H (140-440) K/mm3 Lymphocytes % (Manual) 7.0 L (13.4-35.0) % Eosinophils % (Manual) 10.0 H (0.0-4.3) % Seg Neutrophils # Man 11.1 H (1.8-7.7) K/mm3 Monocytes # (Manual) 1.2 H (0.0-0.8) K/mm3 Eosinophils # (Manual) 1.7 H (0.0-0.4) K/mm3 POC Glucose 106 H (70-105)
[2018-07-29] MEDS: HumaLOG SUB-Q SCH ×3 (08:46→18:06)
[2018-07-29] MEDS: WELLBUTRIN PO SCH ×2 (10:54→22:18)
[2018-07-29] MEDS: LOVENOX SUB-Q SCH (10:55)
[2018-07-29] MEDS: ASPIRIN PO SCH (10:55)
[2018-07-29] MEDS: PEPCID PO SCH (10:55)
[2018-07-29] MEDS: ZESTRIL PO SCH (10:56)
[2018-07-29] MEDS: COREG PO SCH ×2 (10:58→22:19)
[2018-07-29] MEDS: SODIUM CHLORIDE FLUSH SYRINGE 10 ML IV SCH ×2 (11:02→22:18)
[2018-07-29] MEDS: LIORESAL PO SCH ×3 (11:02→21:01)
[2018-07-29] MEDS: PERCOCET 5/325 PO PRN ×2 (11:06→23:22)
--- NOTE | 2018-07-29 12:23 | Progress Note ---
Assessment and Plan Assessment and plan: Sepsis due to UTI. discontinue Gentamacin- risks of nephrotoxicity and ototoxicity Started Unasyn 3 gms, IV q 6 hours for acinetobacter, susceptible per discussion with microlab. Fosfomycin could not be tested UTI. She was just discharged from ED at [facility] with diagnosis of UTI few days prior to this admission She was initially put on ceftriaxone. Urine culture shows gino and A Baumanniia resistant to ceftriaxone. Consulted ID, started on Gentamicin, now switched to Unasyn History of stroke with residual right sided weakness Bilateral leg ulcers. Bilateral post thigh ulcers Wound care nurse following Consulted gen surg Consulted vasc Surg Seen, no surgery/debridement needed depression. Psych following Hypertension. Monitor BP Diabetes mellittus type 2. Fingerstick glucose q ac and hs Full code status failure to thrive. She stays at home with 3 adult children in early 20s. Placement Discussed with case management, working on placement. May go when bed available after Antibiotic treatment recomended by ID History Interval history: No new issues overnight Hospitalist Physical - Constitutional Vitals: Temp Pulse Resp BP Pulse Ox 98.7 F 94 H 20 114/44 96 07/29/18 06:06 07/29/18 10:58 07/29/18 06:06 07/29/18 10:58 07/29/18 06:06 General appearance: Present: no acute distress, obese - EENT Eyes: Present: PERRL, EOM intact ENT: hearing intact, clear oral mucosa, dentition normal - Neck Neck: Present: supple, normal ROM - Respiratory Respiratory effort: normal Respiratory: bilateral: CTA - Cardiovascular Rhythm: regular Heart Sounds: Present: S1 & S2. Absent: gallop, rub - Extremities Extremities: no ischemia, No edema, Full ROM - Abdominal General gastrointestinal: soft, non-tender, non-distended, normal bowel sounds - Integumentary Integumentary: Present: clear, warm, dry - Neurologic Neurologic: CNII-XII intact, moves all extremities Results - Labs CBC & Chem 7: 07/29/18 04:38 07/29/18 04:38 Labs: Laboratory Last Values WBC 17.4 K/mm3 (4.5-11.0) H 07/29/18 04:38 RBC 3.92 M/mm3 (3.65-5.03) 07/29/18 04:38 Hgb 7.8 gm/dl (10.1-14.3) L 07/29/18 04:38 Hct 25.4 % (30.3-42.9) L 07/29/18 04:38 MCV 65 fl (79-97) L 07/29/18 04:38 MCH 20 pg (28-32) L 07/29/18 04:38 MCHC 31 % (30-34) 07/29/18 04:38 RDW 19.6 % (13.2-15.2) H 07/29/18 04:38 Plt Count 647 K/mm3 (140-440) H 07/29/18 04:38 Lymph % (Auto) Face Worker 07/24/18 10:00 [place] % (Auto) Face Worker 07/24/18 10:00 Eos % (Auto) Face Worker 07/24/18 10:00 Baso % (Auto) Face Worker 07/24/18 10:00 Lymph # Face Worker 07/24/18 10:00 [place] # Face Worker 07/24/18 10:00 Eos # Face Worker 07/24/18 10:00 Baso # Face Worker 07/24/18 10:00 Add Manual Diff Complete 07/29/18 04:38 Total Counted 100 07/29/18 04:38 Seg Neutrophils % Face Worker 07/24/18 10:00 Seg Neuts % (Manual) 64.0 % (40.0-70.0) 07/29/18 04:38 Band Neutrophils % 9.0 % 07/29/18 04:38 Lymphocytes % (Manual) 7.0 % (13.4-35.0) L 07/29/18 04:38 Reactive Lymphs % (Man) 0 % 07/29/18 04:38 Monocytes % (Manual) 7.0 % (0.0-7.3) 07/29/18 04:38 Eosinophils % (Manual) 10.0 % (0.0-4.3) H 07/29/18 04:38 Basophils % (Manual) 0 % (0.0-1.8) 07/29/18 04:38 Metamyelocytes % 1.0 % 07/29/18 04:38 Myelocytes % 2.0 % 07/29/18 04:38 Promyelocytes % 0 % 07/29/18 04:38 Blast Cells % 0 % 07/29/18 04:38 Nucleated RBC % Not Reportable 07/29/18 04:38 Seg Neutrophils # Face Worker 07/24/18 10:00 Seg Neutrophils # Man 11.1 K/mm3 (1.8-7.7) H 07/29/18 04:38 Band Neutrophils # 1.6 K/mm3 07/29/18 04:38 Lymphocytes # (Manual) 1.2 K/mm3 (1.2-5.4) 07/29/18 04:38 Abs React Lymphs (Man) 0.0 K/mm3 07/29/18 04:38 Monocytes # (Manual) 1.2 K/mm3 (0.0-0.8) H 07/29/18 04:38 Eosinophils # (Manual) 1.7 K/mm3 (0.0-0.4) H 07/29/18 04:38 Basophils # (Manual) 0.0 K/mm3 (0.0-0.1) 07/29/18 04:38 Metamyelocytes # 0.2 K/mm3 07/29/18 04:38 Myelocytes # 0.3 K/mm3 07/29/18 04:38 Promyelocytes # 0.0 K/mm3 07/29/18 04:38 Blast Cells # 0.0 K/mm3 07/29/18 04:38 WBC Morphology Not Reportable 07/29/18 04:38 Hypersegmented Neuts Not Reportable 07/29/18 04:38 Hyposegmented Neuts Not Reportable 07/29/18 04:38 Hypogranular Neuts Not Reportable 07/29/18 04:38 Smudge Cells Not Reportable 07/29/18 04:38 Toxic Granulation Not Reportable 07/29/18 04:38 Toxic Vacuolation Not Reportable 07/29/18 04:38 Dohle Bodies Not Reportable 07/29/18 04:38 Pelger-Huet Anomaly Not Reportable 07/29/18 04:38 [place] Rods Not Reportable 07/29/18 04:38 Platelet Estimate Appears increased 07/29/18 04:38 Clumped Platelets Not Reportable 07/29/18 04:38 Plt Clumps, EDTA Not Reportable 07/29/18 04:38 Large Platelets Not Reportable 07/29/18 04:38 Giant Platelets Few 07/29/18 04:38 Platelet Satelliting Not Reportable 07/29/18 04:38 Plt Morphology Comment Not Reportable 07/29/18 04:38 RBC Morphology Not Reportable 07/29/18 04:38 Dimorphic RBCs Not Reportable 07/29/18 04:38 Polychromasia Not Reportable 07/29/18 04:38 Hypochromasia 2+ 07/29/18 04:38 Poikilocytosis Not Reportable 07/29/18 04:38 Anisocytosis 2+ 07/29/18 04:38 Microcytosis 1+ 07/29/18 04:38 Macrocytosis Not Reportable 07/29/18 04:38 Spherocytes Not Reportable 07/29/18 04:38 Pappenheimer Bodies Not Reportable 07/29/18 04:38 Sickle Cells Not Reportable 07/29/18 04:38 Target Cells Few 07/29/18 04:38 Tear Drop Cells Not Reportable 07/29/18 04:38 Ovalocytes Not Reportable 07/29/18 04:38 Stomatocytes Few 07/29/18 04:38 Helmet Cells Not Reportable 07/29/18 04:38 [place] Bodies Not Reportable 07/29/18 04:38 [place] Rings Not Reportable 07/29/18 04:38 [place] Cells Not Reportable 07/29/18 04:38 Bite Cells Not Reportable 07/29/18 04:38 Crenated Cell Not Reportable 07/29/18 04:38 Elliptocytes Not Reportable 07/29/18 04:38 Acanthocytes (Spur) Not Reportable 07/29/18 04:38 Rouleaux Not Reportable 07/29/18 04:38 Hemoglobin C Crystals Not Reportable 07/29/18 04:38 Schistocytes Not Reportable 07/29/18 04:38 Malaria parasites Not Reportable 07/29/18 04:38 Jimmy Bodies Not Reportable 07/29/18 04:38 Hem Pathologist Commnt No 07/29/18 04:38 Sodium 140 mmol/L (137-145) 07/29/18 04:38 Potassium 4.2 mmol/L (3.6-5.0) 07/29/18 04:38 Chloride 105.8 mmol/L (98-107) 07/29/18 04:38 Carbon Dioxide 22 mmol/L (22-30) 07/29/18 04:38 Anion Gap 16 mmol/L 07/29/18 04:38 BUN 15 mg/dL (7-17) 07/29/18 04:38 Creatinine 1.0 mg/dL (0.7-1.2) 07/29/18 04:38 Estimated GFR > 60 ml/min 07/29/18 04:38 BUN/Creatinine Ratio 15 % 07/29/18 04:38 Glucose 90 mg/dL (65-100) 07/29/18 04:38 POC Glucose 83 (70-105) 07/29/18 11:09 Lactic Acid 1.60 mmol/L (0.7-2.0) 07/24/18 15:25 Calcium 8.5 mg/dL (8.4-10.2) 07/29/18 04:38 Total Bilirubin 0.30 mg/dL (0.1-1.2) 07/23/18 19:40 AST 41 units/L (5-40) H 07/23/18 19:40 ALT 22 units/L (7-56) 07/23/18 19:40 Alkaline Phosphatase 113 units/L (35-129) 07/23/18 19:40 Total Protein 8.2 g/dL (6.3-8.2) 07/23/18 19:40 Albumin 2.9 g/dL (3.9-5) L 07/23/18 19:40 Albumin/Globulin Ratio 0.5 % 07/23/18 19:40 Urine Color Yellow (Yellow) 07/23/18 18:30 Urine Turbidity Slightly-cloudy (Clear) 07/23/18 18:30 Urine pH 5.0 (5.0-7.0) 07/23/18 18:30 Ur Specific [place] 1.012 (1.003-1.030) 07/23/18 18:30 Urine Protein 30 mg/dl mg/dL (Negative) 07/23/18 18:30 Urine Glucose (UA) Neg mg/dL (Negative) 07/23/18 18:30 Urine Ketones Neg mg/dL (Negative) 07/23/18 18:30 Urine Blood Mod (Negative) 07/23/18 18:30 Urine Nitrite Neg (Negative) 07/23/18 18:30 Urine Bilirubin Neg (Negative) 07/23/18 18:30 Urine Urobilinogen < 2.0 mg/dL (<2.0) 07/23/18 18:30 Ur Leukocyte Esterase Lg (Negative) 07/23/18 18:30 Urine WBC (Auto) 75.0 /HPF (0.0-6.0) H 07/23/18 18:30 Urine RBC (Auto) 83.0 /HPF (0.0-6.0) 07/23/18 18:30 U Epithel Cells (Auto) < 1.0 /HPF (0-13.0) 07/23/18 18:30 Urine Bacteria (Auto) 3+ /HPF (Negative) 07/23/18 18:30 Ur Transition Epith Cell 1 /HPF 07/23/18 18:30 Urine Mucus Few /HPF 07/23/18 18:30 Urine Yeast (Budding) 1+ /HPF 07/23/18 18:30 Nutrition/Malnutrition Assess - Dietary Evaluation Nutrition/Malnutrition Findings: Nutrition Notes Start: 07/25/18 11:48 Freq: Status: Active Protocol: Document 07/25/18 11:48 OH (Rec: 07/25/18 12:03 OH [id number]) Nutrition Notes Need for Assessment generated from: [facility] Initial or Follow up Assessment Current Diagnoses Sepsis Hypertension Other Pertinent Diagnosis sacral wound; lower leg wounds ; UTI; HX CVA Current Diet CARDIAC/CONSISTENT CHO Labs/Tests K+ 4.2 ALB 2.9 GLU 98 HGB 9.7 Medications Humalog lovenox Height 5 ft Weight 136.5 kg [place] Body Weight (lbs) 100.0 BMI 58.7 Intake Prior to Admission Excellent Weight Status Morbidly Obese Subjective/Other Information Pt. seen for skin risk consult . Pt. states she has been controlling DM by diet. She does have a PCP that assists DM. Pt. reports she has had Raimundo before. Pt. noted to have sacral wound/buttocks/ both lower leg wounds. Percent of energy/protein needs met: >75%/75% Burn Absent Trauma Absent GI Symptoms None Current % PO GOOD (75-100%) #1 Nutrition Diagnoses Increased nutrient needs ( specify in comment below) Comments: protein Etiology increased nutrient needs for wound healing As Evidenced by Signs and Symptoms wounds on lower legs/sacral wound Diagnosis Progress(for reassessment Continues documentation) Is patient on ventilator? No Is Patient Ambulatory and/or Out of Bed No REE-([place]-confined to bed) 2308.680 Kcal/Kg value to use for calculation 12 Approximate Energy Requirements Using 1638 kcal/Kg Calculation Used for Recommendations Kcal/kg Additional Notes adj bw 90.97 kgs Protein: 1-1.5 g/kg/adj bw (90 -136 g/day) FLUID: 1 mL/kcal Malnutrition Assessment Malnutrition Related to Morbid Obesity BMI>OR EQUAL TO 40 Clinical Findings Show: Moderate Malnutrition Nutrition Intervention Change Diet Order: Cont CARDIAC/Consistent CHO Add Supplement/Snack (indicate name/kcal Raimundo BID /protein ) Provides kCal: 190 Provides Protein (gm) 5 Goal #1 cont to meet >75% PRO/KCAL needs through po intake Anticipated Discharge Needs: unable to determine at this time Follow-Up By: 07/29/18 Additional Comments f/u: tolerance to Raimundo; po intake
[2018-07-29] MEDS: NACL 0.45% 1000 ML 1,000 ML IV SCH (21:07)
[2018-07-29] MEDS: ELAVIL PO SCH (22:17)
[2018-07-30] MEDS: UNASYN/NS 3 GM/100 ML 3 GM/100 ML BAG IV SCH ×5 (00:22→23:39)
[2018-07-30] MEDS: HumaLOG SUB-Q SCH ×5 (00:34→21:41)
[2018-07-30 05:26] LABS: Hematocrit 26.1 % (30.3-42.9); Hemoglobin 7.9 gm/dl (10.1-14.3); Mean Corpuscular HGB Conc 31 % (30-34); Platelet Count 680 K/mm3 (140-440); Red Cell Distribution Width 19.9 % (13.2-15.2)
[2018-07-30 05:28] LABS: Mean Corpuscular Hemoglobin 20 pg (28-32); Mean Corpuscular Volume 65 fl (79-97)
[2018-07-30] MEDS: PERCOCET 5/325 PO PRN ×3 (05:33→21:15)
[2018-07-30] MEDS: NACL 0.45% 1000 ML 1,000 ML IV SCH ×2 (05:36→23:39)
[2018-07-30 07:47] LABS: Band Neutrophils # (Manual) 1.6 K/mm3; Basophils % (Manual) 0 % (0.0-1.8); Myelocytes # (Manual) 1.2 K/mm3; Total Cells Counted 100
[2018-07-30 07:47] LABS: BUN/Creatinine Ratio 12; Blood Urea Nitrogen 11 mg/dL (7-17); Calcium 8.3 mg/dL (8.4-10.2); Hemolysis Index 0
[2018-07-30 07:48] LABS: Anisocytosis 2+; Giant Platelets Few; Hypochromasia 2+; Platelet Estimate Appears Increased
[2018-07-30] MEDS: MORPHINE IV PRN ×2 (09:43→17:23)
[2018-07-30] MEDS: COREG PO SCH ×2 (09:44→21:16)
[2018-07-30] MEDS: PEPCID PO SCH (09:44)
[2018-07-30] MEDS: ASPIRIN PO SCH (09:44)
[2018-07-30] MEDS: WELLBUTRIN PO SCH ×2 (09:45→21:16)
[2018-07-30] MEDS: ZESTRIL PO SCH (09:45)
[2018-07-30] MEDS: LOVENOX SUB-Q SCH (09:45)
[2018-07-30] MEDS: LIORESAL PO SCH ×3 (09:46→21:16)
[2018-07-30] MEDS: SODIUM CHLORIDE FLUSH SYRINGE 10 ML IV SCH ×2 (09:46→21:17)
[2018-07-30] MEDS: NEURONTIN PO PRN (10:01)
--- NOTE | 2018-07-30 12:14 | Progress Note ---
Assessment and Plan Assessment and plan: Sepsis due to UTI. discontinue Gentamacin- risks of nephrotoxicity and ototoxicity Started Unasyn 3 gms, IV q 6 hours for acinetobacter, susceptible per discussion with microlab. Fosfomycin could not be tested UTI. She was just discharged from ED at [facility] with diagnosis of UTI few days prior to this admission She was initially put on ceftriaxone. Urine culture shows gino and A Baumanniia resistant to ceftriaxone. Consulted ID, started on Gentamicin, now switched to Unasyn History of stroke with residual right sided weakness Bilateral leg ulcers. Bilateral post thigh ulcers Wound care nurse following Consulted gen surg Consulted vasc Surg Seen, no surgery/debridement needed depression. Psych following Hypertension. Monitor BP Diabetes mellittus type 2. Fingerstick glucose q ac and hs Full code status failure to thrive. She stays at home with 3 adult children in early 20s. Placement Discussed with case management, working on placement. May go when bed available after Antibiotic treatment recomended by ID History Interval history: No new issues overnight Hospitalist Physical - Constitutional Vitals: Temp Pulse Resp BP Pulse Ox 98.0 F 83 18 130/72 98 07/30/18 05:50 07/30/18 09:44 07/30/18 05:50 07/30/18 09:44 07/30/18 05:50 General appearance: Present: no acute distress, obese - EENT Eyes: Present: PERRL, EOM intact ENT: hearing intact, clear oral mucosa, dentition normal - Neck Neck: Present: supple, normal ROM - Respiratory Respiratory effort: normal Respiratory: bilateral: CTA - Cardiovascular Rhythm: regular Heart Sounds: Present: S1 & S2. Absent: gallop, rub - Extremities Extremities: no ischemia, No edema, Full ROM - Abdominal General gastrointestinal: soft, non-tender, non-distended, normal bowel sounds - Integumentary Integumentary: Present: clear, warm, dry - Neurologic Neurologic: CNII-XII intact, moves all extremities Results - Labs CBC & Chem 7: 07/30/18 04:53 07/30/18 06:20 Labs: Laboratory Last Values WBC 14.8 K/mm3 (4.5-11.0) H 07/30/18 04:53 RBC 4.00 M/mm3 (3.65-5.03) 07/30/18 04:53 Hgb 7.9 gm/dl (10.1-14.3) L 07/30/18 04:53 Hct 26.1 % (30.3-42.9) L 07/30/18 04:53 MCV 65 fl (79-97) L 07/30/18 04:53 MCH 20 pg (28-32) L 07/30/18 04:53 MCHC 31 % (30-34) 07/30/18 04:53 RDW 19.9 % (13.2-15.2) H 07/30/18 04:53 Plt Count 680 K/mm3 (140-440) H 07/30/18 04:53 Lymph % (Auto) Neurology Nurse 07/24/18 10:00 [place] % (Auto) Neurology Nurse 07/24/18 10:00 Eos % (Auto) Neurology Nurse 07/24/18 10:00 Baso % (Auto) Neurology Nurse 07/24/18 10:00 Lymph # Neurology Nurse 07/24/18 10:00 [place] # Neurology Nurse 07/24/18 10:00 Eos # Neurology Nurse 07/24/18 10:00 Baso # Neurology Nurse 07/24/18 10:00 Add Manual Diff Complete 07/30/18 04:53 Total Counted 100 07/30/18 04:53 Seg Neutrophils % Neurology Nurse 07/24/18 10:00 Seg Neuts % (Manual) 54.0 % (40.0-70.0) 07/30/18 04:53 Band Neutrophils % 11.0 % 07/30/18 04:53 Lymphocytes % (Manual) 11.0 % (13.4-35.0) L 07/30/18 04:53 Reactive Lymphs % (Man) 0 % 07/30/18 04:53 Monocytes % (Manual) 9.0 % (0.0-7.3) H 07/30/18 04:53 Eosinophils % (Manual) 6.0 % (0.0-4.3) H 07/30/18 04:53 Basophils % (Manual) 0 % (0.0-1.8) 07/30/18 04:53 Metamyelocytes % 1.0 % 07/30/18 04:53 Myelocytes % 8.0 % 07/30/18 04:53 Promyelocytes % 0 % 07/30/18 04:53 Blast Cells % 0 % 07/30/18 04:53 Nucleated RBC % Not Reportable 07/30/18 04:53 Seg Neutrophils # Neurology Nurse 07/24/18 10:00 Seg Neutrophils # Man 8.0 K/mm3 (1.8-7.7) H 07/30/18 04:53 Band Neutrophils # 1.6 K/mm3 07/30/18 04:53 Lymphocytes # (Manual) 1.6 K/mm3 (1.2-5.4) 07/30/18 04:53 Abs React Lymphs (Man) 0.0 K/mm3 07/30/18 04:53 Monocytes # (Manual) 1.3 K/mm3 (0.0-0.8) H 07/30/18 04:53 Eosinophils # (Manual) 0.9 K/mm3 (0.0-0.4) H 07/30/18 04:53 Basophils # (Manual) 0.0 K/mm3 (0.0-0.1) 07/30/18 04:53 Metamyelocytes # 0.1 K/mm3 07/30/18 04:53 Myelocytes # 1.2 K/mm3 07/30/18 04:53 Promyelocytes # 0.0 K/mm3 07/30/18 04:53 Blast Cells # 0.0 K/mm3 07/30/18 04:53 WBC Morphology Not Reportable 07/30/18 04:53 Hypersegmented Neuts Not Reportable 07/30/18 04:53 Hyposegmented Neuts Not Reportable 07/30/18 04:53 Hypogranular Neuts Not Reportable 07/30/18 04:53 Smudge Cells Not Reportable 07/30/18 04:53 Toxic Granulation Not Reportable 07/30/18 04:53 Toxic Vacuolation Not Reportable 07/30/18 04:53 Dohle Bodies Not Reportable 07/30/18 04:53 Pelger-Huet Anomaly Not Reportable 07/30/18 04:53 [place] Rods Not Reportable 07/30/18 04:53 Platelet Estimate Appears increased 07/30/18 04:53 Clumped Platelets Not Reportable 07/30/18 04:53 Plt Clumps, EDTA Not Reportable 07/30/18 04:53 Large Platelets Not Reportable 07/30/18 04:53 Giant Platelets Few 07/30/18 04:53 Platelet Satelliting Not Reportable 07/30/18 04:53 Plt Morphology Comment Not Reportable 07/30/18 04:53 RBC Morphology Not Reportable 07/30/18 04:53 Dimorphic RBCs Not Reportable 07/30/18 04:53 Polychromasia Few 07/30/18 04:53 Hypochromasia 2+ 07/30/18 04:53 Poikilocytosis Not Reportable 07/30/18 04:53 Anisocytosis 2+ 07/30/18 04:53 Microcytosis 1+ 07/30/18 04:53 Macrocytosis Not Reportable 07/30/18 04:53 Spherocytes Not Reportable 07/30/18 04:53 Pappenheimer Bodies Not Reportable 07/30/18 04:53 Sickle Cells Not Reportable 07/30/18 04:53 Target Cells Not Reportable 07/30/18 04:53 Tear Drop Cells Not Reportable 07/30/18 04:53 Ovalocytes Not Reportable 07/30/18 04:53 Stomatocytes Few 07/29/18 04:38 Helmet Cells Not Reportable 07/30/18 04:53 [place] Bodies Not Reportable 07/30/18 04:53 [place] Rings Not Reportable 07/30/18 04:53 [place] Cells Not Reportable 07/30/18 04:53 Bite Cells Not Reportable 07/30/18 04:53 Crenated Cell Not Reportable 07/30/18 04:53 Elliptocytes Not Reportable 07/30/18 04:53 Acanthocytes (Spur) Not Reportable 07/30/18 04:53 Rouleaux Not Reportable 07/30/18 04:53 Hemoglobin C Crystals Not Reportable 07/30/18 04:53 Schistocytes Not Reportable 07/30/18 04:53 Malaria parasites Not Reportable 07/30/18 04:53 Jimmy Bodies Not Reportable 07/30/18 04:53 Hem Pathologist Commnt No 07/30/18 04:53 Sodium 142 mmol/L (137-145) 07/30/18 06:20 Potassium 4.4 mmol/L (3.6-5.0) 07/30/18 06:20 Chloride 106.4 mmol/L (98-107) 07/30/18 06:20 Carbon Dioxide 22 mmol/L (22-30) 07/30/18 06:20 Anion Gap 18 mmol/L 07/30/18 06:20 BUN 11 mg/dL (7-17) 07/30/18 06:20 Creatinine 0.9 mg/dL (0.7-1.2) 07/30/18 06:20 Estimated GFR > 60 ml/min 07/30/18 06:20 BUN/Creatinine Ratio 12 % 07/30/18 06:20 Glucose 114 mg/dL (65-100) H 07/30/18 06:20 POC Glucose 115 (70-105) H 07/30/18 11:44 Lactic Acid 1.60 mmol/L (0.7-2.0) 07/24/18 15:25 Calcium 8.3 mg/dL (8.4-10.2) L 07/30/18 06:20 Total Bilirubin 0.30 mg/dL (0.1-1.2) 07/23/18 19:40 AST 41 units/L (5-40) H 07/23/18 19:40 ALT 22 units/L (7-56) 07/23/18 19:40 Alkaline Phosphatase 113 units/L (35-129) 07/23/18 19:40 Total Protein 8.2 g/dL (6.3-8.2) 07/23/18 19:40 Albumin 2.9 g/dL (3.9-5) L 07/23/18 19:40 Albumin/Globulin Ratio 0.5 % 07/23/18 19:40 Urine Color Yellow (Yellow) 07/23/18 18:30 Urine Turbidity Slightly-cloudy (Clear) 07/23/18 18:30 Urine pH 5.0 (5.0-7.0) 07/23/18 18:30 Ur Specific [place] 1.012 (1.003-1.030) 07/23/18 18:30 Urine Protein 30 mg/dl mg/dL (Negative) 07/23/18 18:30 Urine Glucose (UA) Neg mg/dL (Negative) 07/23/18 18:30 Urine Ketones Neg mg/dL (Negative) 07/23/18 18:30 Urine Blood Mod (Negative) 07/23/18 18:30 Urine Nitrite Neg (Negative) 07/23/18 18:30 Urine Bilirubin Neg (Negative) 07/23/18 18:30 Urine Urobilinogen < 2.0 mg/dL (<2.0) 07/23/18 18:30 Ur Leukocyte Esterase Lg (Negative) 07/23/18 18:30 Urine WBC (Auto) 75.0 /HPF (0.0-6.0) H 07/23/18 18:30 Urine RBC (Auto) 83.0 /HPF (0.0-6.0) 07/23/18 18:30 U Epithel Cells (Auto) < 1.0 /HPF (0-13.0) 07/23/18 18:30 Urine Bacteria (Auto) 3+ /HPF (Negative) 07/23/18 18:30 Ur Transition Epith Cell 1 /HPF 07/23/18 18:30 Urine Mucus Few /HPF 07/23/18 18:30 Urine Yeast (Budding) 1+ /HPF 07/23/18 18:30 Nutrition/Malnutrition Assess - Dietary Evaluation Nutrition/Malnutrition Findings: Nutrition Notes Start: 07/25/18 11:48 Freq: Status: Active Protocol: Document 07/29/18 12:29 NATHANIEL (Rec: 07/29/18 12:36 NATHANIEL [id number]) Nutrition Notes Initial or Follow up Reassessment Current Diagnoses Decubitus(Pressure Ulcer) Diabetes Sepsis Hypertension Stroke Current Diet Cardiac/Consistent CHO + Raimundo BID Labs/Tests Reviewed Medications Reviewed Height 5 ft Weight 133.3 kg [place] Body Weight (lbs) 100.0 BMI 57.4 Weight change and time frame Current wt obtained from bed scale Subjective/Other Information Pt has consumed 68% of meals since last assessment. She reports fair appetite; takes Raimundo supplement and amenable to Glucerna daily. Burn Absent Trauma Absent #1 Nutrition Diagnoses Increased nutrient needs ( specify in comment below) Diagnosis Progress(for reassessment Continues documentation) Is patient on ventilator? No Is Patient Ambulatory and/or Out of Bed No REE-([facility]-confined to bed) 2270.316 Kcal/Kg value to use for calculation 13 Approximate Energy Requirements Using 1733 kcal/Kg Calculation Used for Recommendations Kcal/kg Additional Notes Pro needs 1.25-1.5g/kg adjBW: 112-134g/day Fluid needs 1ml/kcal Nutrition Intervention Change Diet Order: Continue current diet order Add Supplement/Snack (indicate name/kcal Raimundo BID + Glucerna ( /protein ) strawberry) BID Provides kCal: 630 Provides Protein (gm) 25 Goal #1 PO intake of meals plus ONS to meet at least 75% of nutrient needs Goal #2 Wound healing Anticipated Discharge Needs: Continue ONS daily if PO intakes remain suboptimal Follow-Up By: 08/03/18 Additional Comments F/U: intakes (meals/ONS)
[2018-07-30] MEDS: ELAVIL PO SCH (21:17)
[2018-07-31] MEDS: MORPHINE IV PRN ×4 (04:30→23:26)
[2018-07-31] MEDS: UNASYN/NS 3 GM/100 ML 3 GM/100 ML BAG IV SCH ×2 (05:23→12:06)
[2018-07-31] MEDS: HumaLOG SUB-Q SCH ×4 (07:30→21:47)
[2018-07-31] MEDS: NACL 0.45% 1000 ML 1,000 ML IV SCH ×2 (08:53→17:41)
[2018-07-31] MEDS: LIORESAL PO SCH ×3 (08:54→21:24)
[2018-07-31] MEDS: LOVENOX SUB-Q SCH ×2 (08:54→14:42)
[2018-07-31] MEDS: ASPIRIN PO SCH ×2 (08:54→14:43)
[2018-07-31] MEDS: PEPCID PO SCH ×2 (08:54→14:43)
[2018-07-31] MEDS: WELLBUTRIN PO SCH ×3 (08:55→21:25)
[2018-07-31] MEDS: COREG PO SCH ×3 (08:55→21:25)
--- NOTE | 2018-07-31 11:04 | Progress Note ---
Assessment and Plan Assessment and plan: Sepsis due to UTI. Antibiotic completed. We will monitor off antibiotics. UTI. She was just discharged from ED at [facility] with diagnosis of UTI few days prior to this admission She was initially put on ceftriaxone. Urine culture shows gino and A Baumanniia resistant to ceftriaxone. Consulted ID, started on Gentamicin, now switched to Unasyn History of stroke with residual right sided weakness Bilateral leg ulcers. Bilateral post thigh ulcers Wound care nurse following Consulted gen surg Consulted vasc Surg Seen, no surgery/debridement needed depression. Psych following Hypertension. Monitor BP Diabetes mellittus type 2. Fingerstick glucose q ac and hs Full code status failure to thrive. She stays at home with 3 adult children in early 20s. Placement Discussed with case management, working on placement. May go when bed available after Antibiotic treatment recomended by ID History Interval history: No new issues overnight Hospitalist Physical - Constitutional Vitals: Temp Pulse Resp BP Pulse Ox 97.5 F L 85 18 125/54 96 07/31/18 06:03 07/31/18 08:55 07/31/18 06:03 07/31/18 08:55 07/31/18 06:03 General appearance: Present: no acute distress, obese - EENT Eyes: Present: PERRL, EOM intact ENT: hearing intact, clear oral mucosa, dentition normal - Neck Neck: Present: supple, normal ROM - Respiratory Respiratory effort: normal Respiratory: bilateral: CTA - Cardiovascular Rhythm: regular Heart Sounds: Present: S1 & S2. Absent: gallop, rub - Extremities Extremities: no ischemia, No edema, Full ROM - Abdominal General gastrointestinal: soft, non-tender, non-distended, normal bowel sounds - Integumentary Integumentary: Present: clear, warm, dry - Neurologic Neurologic: CNII-XII intact, moves all extremities Results - Labs CBC & Chem 7: 07/30/18 04:53 07/30/18 06:20 Labs: Laboratory Last Values WBC 14.8 K/mm3 (4.5-11.0) H 07/30/18 04:53 RBC 4.00 M/mm3 (3.65-5.03) 07/30/18 04:53 Hgb 7.9 gm/dl (10.1-14.3) L 07/30/18 04:53 Hct 26.1 % (30.3-42.9) L 07/30/18 04:53 MCV 65 fl (79-97) L 07/30/18 04:53 MCH 20 pg (28-32) L 07/30/18 04:53 MCHC 31 % (30-34) 07/30/18 04:53 RDW 19.9 % (13.2-15.2) H 07/30/18 04:53 Plt Count 680 K/mm3 (140-440) H 07/30/18 04:53 Lymph % (Auto) Safety Lead 07/24/18 10:00 [place] % (Auto) Safety Lead 07/24/18 10:00 Eos % (Auto) Safety Lead 07/24/18 10:00 Baso % (Auto) Safety Lead 07/24/18 10:00 Lymph # Safety Lead 07/24/18 10:00 [place] # Safety Lead 07/24/18 10:00 Eos # Safety Lead 07/24/18 10:00 Baso # Safety Lead 07/24/18 10:00 Add Manual Diff Complete 07/30/18 04:53 Total Counted 100 07/30/18 04:53 Seg Neutrophils % Safety Lead 07/24/18 10:00 Seg Neuts % (Manual) 54.0 % (40.0-70.0) 07/30/18 04:53 Band Neutrophils % 11.0 % 07/30/18 04:53 Lymphocytes % (Manual) 11.0 % (13.4-35.0) L 07/30/18 04:53 Reactive Lymphs % (Man) 0 % 07/30/18 04:53 Monocytes % (Manual) 9.0 % (0.0-7.3) H 07/30/18 04:53 Eosinophils % (Manual) 6.0 % (0.0-4.3) H 07/30/18 04:53 Basophils % (Manual) 0 % (0.0-1.8) 07/30/18 04:53 Metamyelocytes % 1.0 % 07/30/18 04:53 Myelocytes % 8.0 % 07/30/18 04:53 Promyelocytes % 0 % 07/30/18 04:53 Blast Cells % 0 % 07/30/18 04:53 Nucleated RBC % Not Reportable 07/30/18 04:53 Seg Neutrophils # Safety Lead 07/24/18 10:00 Seg Neutrophils # Man 8.0 K/mm3 (1.8-7.7) H 07/30/18 04:53 Band Neutrophils # 1.6 K/mm3 07/30/18 04:53 Lymphocytes # (Manual) 1.6 K/mm3 (1.2-5.4) 07/30/18 04:53 Abs React Lymphs (Man) 0.0 K/mm3 07/30/18 04:53 Monocytes # (Manual) 1.3 K/mm3 (0.0-0.8) H 07/30/18 04:53 Eosinophils # (Manual) 0.9 K/mm3 (0.0-0.4) H 07/30/18 04:53 Basophils # (Manual) 0.0 K/mm3 (0.0-0.1) 07/30/18 04:53 Metamyelocytes # 0.1 K/mm3 07/30/18 04:53 Myelocytes # 1.2 K/mm3 07/30/18 04:53 Promyelocytes # 0.0 K/mm3 07/30/18 04:53 Blast Cells # 0.0 K/mm3 07/30/18 04:53 WBC Morphology Not Reportable 07/30/18 04:53 Hypersegmented Neuts Not Reportable 07/30/18 04:53 Hyposegmented Neuts Not Reportable 07/30/18 04:53 Hypogranular Neuts Not Reportable 07/30/18 04:53 Smudge Cells Not Reportable 07/30/18 04:53 Toxic Granulation Not Reportable 07/30/18 04:53 Toxic Vacuolation Not Reportable 07/30/18 04:53 Dohle Bodies Not Reportable 07/30/18 04:53 Pelger-Huet Anomaly Not Reportable 07/30/18 04:53 [place] Rods Not Reportable 07/30/18 04:53 Platelet Estimate Appears increased 07/30/18 04:53 Clumped Platelets Not Reportable 07/30/18 04:53 Plt Clumps, EDTA Not Reportable 07/30/18 04:53 Large Platelets Not Reportable 07/30/18 04:53 Giant Platelets Few 07/30/18 04:53 Platelet Satelliting Not Reportable 07/30/18 04:53 Plt Morphology Comment Not Reportable 07/30/18 04:53 RBC Morphology Not Reportable 07/30/18 04:53 Dimorphic RBCs Not Reportable 07/30/18 04:53 Polychromasia Few 07/30/18 04:53 Hypochromasia 2+ 07/30/18 04:53 Poikilocytosis Not Reportable 07/30/18 04:53 Anisocytosis 2+ 07/30/18 04:53 Microcytosis 1+ 07/30/18 04:53 Macrocytosis Not Reportable 07/30/18 04:53 Spherocytes Not Reportable 07/30/18 04:53 Pappenheimer Bodies Not Reportable 07/30/18 04:53 Sickle Cells Not Reportable 07/30/18 04:53 Target Cells Not Reportable 07/30/18 04:53 Tear Drop Cells Not Reportable 07/30/18 04:53 Ovalocytes Not Reportable 07/30/18 04:53 Stomatocytes Few 07/29/18 04:38 Helmet Cells Not Reportable 07/30/18 04:53 [place] Bodies Not Reportable 07/30/18 04:53 [place] Rings Not Reportable 07/30/18 04:53 Seven Cells Not Reportable 07/30/18 04:53 Bite Cells Not Reportable 07/30/18 04:53 Crenated Cell Not Reportable 07/30/18 04:53 Elliptocytes Not Reportable 07/30/18 04:53 Acanthocytes (Spur) Not Reportable 07/30/18 04:53 Rouleaux Not Reportable 07/30/18 04:53 Hemoglobin C Crystals Not Reportable 07/30/18 04:53 Schistocytes Not Reportable 07/30/18 04:53 Malaria parasites Not Reportable 07/30/18 04:53 Jimmy Bodies Not Reportable 07/30/18 04:53 Hem Pathologist Commnt No 07/30/18 04:53 Sodium 142 mmol/L (137-145) 07/30/18 06:20 Potassium 4.4 mmol/L (3.6-5.0) 07/30/18 06:20 Chloride 106.4 mmol/L (98-107) 07/30/18 06:20 Carbon Dioxide 22 mmol/L (22-30) 07/30/18 06:20 Anion Gap 18 mmol/L 07/30/18 06:20 BUN 11 mg/dL (7-17) 07/30/18 06:20 Creatinine 0.9 mg/dL (0.7-1.2) 07/30/18 06:20 Estimated GFR > 60 ml/min 07/30/18 06:20 BUN/Creatinine Ratio 12 % 07/30/18 06:20 Glucose 114 mg/dL (65-100) H 07/30/18 06:20 POC Glucose 105 (70-105) 07/31/18 07:45 Lactic Acid 1.60 mmol/L (0.7-2.0) 07/24/18 15:25 Calcium 8.3 mg/dL (8.4-10.2) L 07/30/18 06:20 Total Bilirubin 0.30 mg/dL (0.1-1.2) 07/23/18 19:40 AST 41 units/L (5-40) H 07/23/18 19:40 ALT 22 units/L (7-56) 07/23/18 19:40 Alkaline Phosphatase 113 units/L (35-129) 07/23/18 19:40 Total Protein 8.2 g/dL (6.3-8.2) 07/23/18 19:40 Albumin 2.9 g/dL (3.9-5) L 07/23/18 19:40 Albumin/Globulin Ratio 0.5 % 07/23/18 19:40 Urine Color Yellow (Yellow) 07/23/18 18:30 Urine Turbidity Slightly-cloudy (Clear) 07/23/18 18:30 Urine pH 5.0 (5.0-7.0) 07/23/18 18:30 Ur Specific [place] 1.012 (1.003-1.030) 07/23/18 18:30 Urine Protein 30 mg/dl mg/dL (Negative) 07/23/18 18:30 Urine Glucose (UA) Neg mg/dL (Negative) 07/23/18 18:30 Urine Ketones Neg mg/dL (Negative) 07/23/18 18:30 Urine Blood Mod (Negative) 07/23/18 18:30 Urine Nitrite Neg (Negative) 07/23/18 18:30 Urine Bilirubin Neg (Negative) 07/23/18 18:30 Urine Urobilinogen < 2.0 mg/dL (<2.0) 07/23/18 18:30 Ur Leukocyte Esterase Lg (Negative) 07/23/18 18:30 Urine WBC (Auto) 75.0 /HPF (0.0-6.0) H 07/23/18 18:30 Urine RBC (Auto) 83.0 /HPF (0.0-6.0) 07/23/18 18:30 U Epithel Cells (Auto) < 1.0 /HPF (0-13.0) 07/23/18 18:30 Urine Bacteria (Auto) 3+ /HPF (Negative) 07/23/18 18:30 Ur Transition Epith Cell 1 /HPF 07/23/18 18:30 Urine Mucus Few /HPF 07/23/18 18:30 Urine Yeast (Budding) 1+ /HPF 07/23/18 18:30 Nutrition/Malnutrition Assess - Dietary Evaluation Nutrition/Malnutrition Findings: Nutrition Notes Start: 07/25/18 11:48 Freq: Status: Active Protocol: Document 07/29/18 12:29 NATHANIEL (Rec: 07/29/18 12:36 [email or web address] [email or web address]) Nutrition Notes Initial or Follow up Reassessment Current Diagnoses Decubitus(Pressure Ulcer) Diabetes Sepsis Hypertension Stroke Current Diet Cardiac/Consistent CHO + Raimundo BID Labs/Tests Reviewed Medications Reviewed Height 5 ft Weight 133.3 kg [place] Body Weight (lbs) 100.0 BMI 57.4 Weight change and time frame Current wt obtained from bed scale Subjective/Other Information Pt has consumed 68% of meals since last assessment. She reports fair appetite; takes Raimundo supplement and amenable to Glucerna daily. Burn Absent Trauma Absent #1 Nutrition Diagnoses Increased nutrient needs ( specify in comment below) Diagnosis Progress(for reassessment Continues documentation) Is patient on ventilator? No Is Patient Ambulatory and/or Out of Bed No REE-([facility]-confined to bed) 2270.316 Kcal/Kg value to use for calculation 13 Approximate Energy Requirements Using 1733 kcal/Kg Calculation Used for Recommendations Kcal/kg Additional Notes Pro needs 1.25-1.5g/kg adjBW: 112-134g/day Fluid needs 1ml/kcal Nutrition Intervention Change Diet Order: Continue current diet order Add Supplement/Snack (indicate name/kcal Raimundo BID + Glucerna ( /protein ) strawberry) BID Provides kCal: 630 Provides Protein (gm) 25 Goal #1 PO intake of meals plus ONS to meet at least 75% of nutrient needs Goal #2 Wound healing Anticipated Discharge Needs: Continue ONS daily if PO intakes remain suboptimal Follow-Up By: 08/03/18 Additional Comments F/U: intakes (meals/ONS)
[2018-07-31] MEDS: NEURONTIN PO PRN ×2 (12:08→22:30)
--- NOTE | 2018-07-31 13:01 | Progress Note ---
Assessment and Plan Cultures: 07/23/2018 urine culture: Nataliya albicans, Acinetobacter 07/23/2018 blood culture: No growth Chest x-ray shows no evidence of pneumonia. A/P: 48-year-old female with CVA, diabetes mellitus type 2, hypertension, bilateral lower extremity wounds, stage II sacral decubitus ulcer, morbid obesity, lymphedema admitted with: 1) Sepsis secondary to Catheter associated UTI: recently placed back at OSH due to urinary retention, patient never followed up for back removal and voiding trial. UA consistent with pyuria and cultures growing Nataliya and MDR Acinetobacter. No evidence of bacteremia or pyelonephritis. Nataliya in urine generally does not need treatment except Back removal / exchange which was already done. Given her morbid obesity, DM, will give her one dose of Fl uconazole. Will treat MDR Acinetobacter with IV Gentamicin. WBC has already improved. 2) B/L LE ulcerations in the setting of morbid obesity and lymphedema: needs continued wound care. No clinical concern for osteomyelitis. 3) Morbid obesity: patient planning bariatric surgery. Use adjusted body weight for Gentamicin dose. 4) Leukocytosis - repeat CBC with manual Diff ordered, +/- Chronic leukocytosis Recs: -Monitor off antibiotics -Continue wound care -continue contact precautions [employer] M: [id number] O:[phone] Subjective Date of service: 07/31/18 Interval history: Patient seen an examined. Denies fevers, SOB , Rashes or Diarrhea. has continuing generalized discomfort. Nurses notes, labs and reports reviewed, discussed with patient. Objective - Exam Narrative Exam: Constitutional: Alert, cooperative. Generalized discomfort. Morbid obesity Head, Ears, Nose: Normocephalic, atraumatic. External ears, nose normal Eyes: Conjunctivae/corneas clear. No icterus. No ptosis. Neck: Supple, no meningeal signs Oral: no thrush. Cardiovascular: S1, S2 normal. Respiratory: Good air entry, clear to auscultation bilaterally GI: Soft, non-tender; bowel sounds normal. No peritoneal signs Musculoskeletal: Bilateral extremities with circumferential wound with good granulation tissue and appears quite superficial. Severe lymphedema. Skin: No rash or abscess Hem/Lymphatic: No palpable cervical or supraclavicular nodes. No lymphangitis Psych: Mood ok. Affect normal Neurological: Awake, alert, oriented. No gross abnormality - Constitutional Vitals: Vital Signs Temp Pulse Resp BP Pulse Ox 97.5 F L 85 18 125/54 96 07/31/18 06:03 07/31/18 08:55 07/31/18 06:03 07/31/18 08:55 07/31/18 06:03 Temperature -Last 24 Hours Temperature 97.5 F Temperature 97.7 F Temperature 97.7 F Temperature 97.2 F - Labs CBC & Chem 7: 07/31/18 14:36 07/30/18 06:20 Labs: Abnormal lab results 07/31/18 Range/Units 11:40 POC Glucose 112 H (70-105)
[2018-07-31] MEDS: ZESTRIL PO SCH (14:42)
[2018-07-31] MEDS: SODIUM CHLORIDE FLUSH SYRINGE 10 ML IV SCH ×2 (14:43→21:26)
[2018-07-31 15:31] LABS: Hemoglobin 8.8 gm/dl (10.1-14.3); Mean Corpuscular HGB Conc 30 % (30-34); Platelet Count 812 K/mm3 (140-440)
[2018-07-31 15:32] LABS: Mean Corpuscular Hemoglobin 20 pg (28-32); Mean Corpuscular Volume 66 fl (79-97); Red Cell Distribution Width 20.3 % (13.2-15.2)
[2018-07-31 16:38] LABS: Hemolysis Index 1
[2018-07-31 17:14] LABS: Blood Urea Nitrogen 13 mg/dL (7-17)
[2018-07-31 17:15] LABS: BUN/Creatinine Ratio 13; Calcium 8.2 mg/dL (8.4-10.2)
[2018-07-31] MEDS: PERCOCET 5/325 PO PRN (17:32)
[2018-07-31] MEDS: ELAVIL PO SCH (21:28)
[2018-08-01] MEDS: NACL 0.45% 1000 ML 1,000 ML IV SCH ×2 (01:48→09:12)
[2018-08-01] MEDS: PERCOCET 5/325 PO PRN (05:16)
[2018-08-01 05:57] LABS: Hematocrit 26.3 % (30.3-42.9); Hemoglobin 8.1 gm/dl (10.1-14.3); Mean Corpuscular HGB Conc 31 % (30-34); Platelet Count 824 K/mm3 (140-440); Red Blood Count 4.02 M/mm3 (3.65-5.03); Red Cell Distribution Width 19.7 % (13.2-15.2)
[2018-08-01 05:59] LABS: Mean Corpuscular Hemoglobin 20 pg (28-32); Mean Corpuscular Volume 65 fl (79-97)
[2018-08-01 06:56] LABS: Anisocytosis 1+; Basophils % (Manual) 0 % (0.0-1.8); Hypochromasia 1+; Total Cells Counted 100
[2018-08-01 06:57] LABS: Target Cells Few
[2018-08-01 06:58] LABS: Platelet Estimate Appears Increased
--- NOTE | 2018-08-01 08:37 | Progress Note ---
Assessment and Plan Cultures: 07/23/2018 urine culture: Nataliya albicans, Acinetobacter 07/23/2018 blood culture: No growth Chest x-ray shows no evidence of pneumonia. A/P: 48-year-old female with CVA, diabetes mellitus type 2, hypertension, bilateral lower extremity wounds, stage II sacral decubitus ulcer, morbid obesity, lymphedema admitted with: 1) Sepsis secondary to Catheter associated UTI: recently placed back at OSH due to urinary retention, patient never followed up for back removal and voiding trial. UA consistent with pyuria and cultures growing Nataliya and MDR Acinetobacter. No evidence of bacteremia or pyelonephritis. Nataliya in urine generally does not need treatment except Back removal / exchange which was already done. Given her morbid obesity, DM, will give her one dose of Fl uconazole. Will treat MDR Acinetobacter with IV Gentamicin. WBC has already improved. 2) B/L LE ulcerations in the setting of morbid obesity and lymphedema: needs continued wound care. No clinical concern for osteomyelitis. 3) Morbid obesity: patient planning bariatric surgery. Use adjusted body weight for Gentamicin dose. 4) Leukocytosis - repeat CBC with manual Diff ordered, +/- Chronic leukocytosis Recs: -Monitor off antibiotics -Continue wound care -continue contact precautions [employer] M: [id number] O:[phone] Subjective Date of service: 08/01/18 Interval history: Patient seen an examined. Denies fevers, SOB , Rashes or Diarrhea. Nurses notes, labs and reports reviewed, discussed with patient. Objective - Exam Narrative Exam: Constitutional: Alert, cooperative. Generalized discomfort. Morbid obesity Head, Ears, Nose: Normocephalic, atraumatic. External ears, nose normal Eyes: Conjunctivae/corneas clear. No icterus. No ptosis. Neck: Supple, no meningeal signs Oral: no thrush. Cardiovascular: S1, S2 normal. Respiratory: Good air entry, clear to auscultation bilaterally GI: Soft, non-tender; bowel sounds normal. No peritoneal signs Musculoskeletal: Bilateral extremities with circumferential wound with good granulation tissue and appears quite superficial. Severe lymphedema. Skin: No rash or abscess Hem/Lymphatic: No palpable cervical or supraclavicular nodes. No lymphangitis Psych: Mood ok. Affect normal Neurological: Awake, alert, oriented. No gross abnormality - Constitutional Vitals: Vital Signs Temp Pulse Resp BP Pulse Ox 97.9 F 86 20 107/44 98 08/01/18 05:21 08/01/18 05:21 08/01/18 05:21 08/01/18 05:21 08/01/18 05:21 Temperature -Last 24 Hours Temperature 97.9 F Temperature 97.8 F Temperature 98.4 F Temperature 97.5 F - Labs CBC & Chem 7: 08/01/18 05:34 08/01/18 06:55 Labs: Abnormal lab results 07/31/18 07/31/18 07/31/18 Range/Units 11:40 14:36 16:07 WBC 14.0 H (4.5-11.0) K/mm3 Hgb 8.8 L (10.1-14.3) gm/dl Hct 29.0 L (30.3-42.9) % MCV 66 L (79-97) fl MCH 20 L (28-32) pg RDW 20.3 H (13.2-15.2) % Plt Count 812 H (140-440) K/mm3 Monocytes % (Manual) (0.0-7.3) % Eosinophils % (Manual) (0.0-4.3) % Seg Neutrophils # Man (1.8-7.7) K/mm3 Monocytes # (Manual) (0.0-0.8) K/mm3 Eosinophils # (Manual) (0.0-0.4) K/mm3 Potassium 5.2 H (3.6-5.0) mmol/L Carbon Dioxide 18 L (22-30) mmol/L Glucose (65-100) mg/dL POC Glucose 112 H (70-105) Calcium 8.2 L (8.4-10.2) mg/dL 07/31/18 08/01/18 08/01/18 Range/Units 21:47 05:34 06:55 WBC 14.4 H (4.5-11.0) K/mm3 Hgb 8.1 L (10.1-14.3) gm/dl Hct 26.3 L (30.3-42.9) % MCV 65 L (79-97) fl MCH 20 L (28-32) pg RDW 19.7 H (13.2-15.2) % Plt Count 824 H (140-440) K/mm3 Monocytes % (Manual) 11.0 H (0.0-7.3) % Eosinophils % (Manual) 11.0 H (0.0-4.3) % Seg Neutrophils # Man 8.6 H (1.8-7.7) K/mm3 Monocytes # (Manual) 1.6 H (0.0-0.8) K/mm3 Eosinophils # (Manual) 1.6 H (0.0-0.4) K/mm3 Potassium 5.5 H (3.6-5.0) mmol/L Carbon Dioxide 20 L (22-30) mmol/L Glucose 101 H (65-100) mg/dL POC Glucose 118 H (70-105) Calcium 8.0 L (8.4-10.2) mg/dL
[2018-08-01] MEDS: HumaLOG SUB-Q SCH (08:57)
[2018-08-01] MEDS: LIORESAL PO SCH (09:13)
[2018-08-01] MEDS: COREG PO SCH (09:13)
[2018-08-01] MEDS: ASPIRIN PO SCH (09:13)
[2018-08-01] MEDS: PEPCID PO SCH (09:13)
[2018-08-01] MEDS: ZESTRIL PO SCH (09:14)
[2018-08-01] MEDS: LOVENOX SUB-Q SCH (09:15)
[2018-08-01] MEDS: SODIUM CHLORIDE FLUSH SYRINGE 10 ML IV SCH (09:15)
--- NOTE | 2018-08-01 10:32 | Discharge Summary ---
Providers - Providers Date of Admission: 07/23/18 21:31 Date of discharge: 08/01/18 Attending physician: KAROL SHAY 07/23/18 23:01 Consult to Wound/ET Nurse [CONS] Routine Reason For Exam: wound eval 07/24/18 11:27 Consult to Mental Health [CONS] Routine Reason For Exam: History of depression Place consult to:: Psych Notified:: Phone number called:: [phone] Was contact made?: Yes If yes, spoke with:: dilia Time called:: 10:13 07/25/18 14:12 Physical Therapy Evaluation and Treat [CONS] Routine Comment: Reason For Exam: EVAL & TREAT 07/25/18 15:03 Consult to Physician [CONS] Urgent Comment: Consulting Provider: AVERY TRIMBLE Physician Instructions: PLEASE EVALUATE RIGHT TOE Reason For Exam: ASSESS RIGTH GREAT TOE 07/26/18 10:38 Consult to Physician [CONS] Routine Comment: Consulting Provider: NAVNEET QUEZADA Physician Instructions: Reason For Exam: Multiple ulcers legs,thigh,buttocks 07/27/18 10:40 Consult to Case Management [CONS] Routine Services Needed at Discharge: Other Notified:: [employer] Comment:: Possible placement 07/27/18 12:19 Consult to Physician [CONS] Routine Comment: Consulting Provider: LOLITA SHAFER Physician Instructions: Reason For Exam: UTI with A. baumani Primary care physician: ABLE BODIED SEAMAN Hospitalization Reason for admission: sepsis Condition: Stable Hospital course: 48-year-old female with CVA, diabetes mellitus type 2, hypertension, bilateral lower extremity wounds, stage II sacral decubitus ulcer, morbid obesity, lymphedema admitted with Sepsis secondary to Catheter associated UTI: recently placed back at OSH due to urinary retention, patient never followed up for back removal and voiding trial. UA consistent with pyuria and cultures growing Nataliya and MDR Acinetobacter from 07/23/18. Blood cultures also drawn on that date that showed no growth. No evidence of bacteremia or pyelonephritis. Nataliya in urine generally does not need treatment except Back removal / exchange which was already done. ID saw the patient in consultation and felt given her diabetes mellitus and obesity she warranted one dose of fluconazole. The patient was also treated with IV Gentamicin. WBC improved. However, likely remains chronically elevated. Patient does have bilateral lower extremity ulcerations which may be the etiology of this. Patient received continued wound care done hospitalization. ID eventually discontinue the antibiotics and the patient remains stable. Continue contact precautions. The patient is felt to have received hospital benefit and will be discharged to SNF. Case management was consulted and arranged for [facility] Disposition: [id number] Time spent for discharge: 34 - Discharge Diagnoses (1) Obesity Status: Acute (2) Sepsis Status: Acute (3) UTI (urinary tract infection) Status: Acute (4) Accelerated hypertension Status: Acute (5) Diabetes mellitus, type 2 Status: Chronic (6) History of stroke with residual deficit Status: Chronic Core Measure Documentation - Palliative Care Palliative Care/ Comfort Measures: Not Applicable - Core Measures Any of the following diagnoses?: none Exam - Constitutional Vitals: Temp Pulse Resp BP Pulse Ox 97.9 F 86 20 107/44 98 08/01/18 05:21 08/01/18 05:21 08/01/18 05:21 08/01/18 05:21 08/01/18 05:21 General appearance: Present: no acute distress, well-nourished - EENT Eyes: Present: PERRL ENT: hearing intact, clear oral mucosa - Neck Neck: Present: supple, normal ROM - Respiratory Respiratory effort: normal Respiratory: bilateral: CTA - Cardiovascular Heart Sounds: Present: S1 & S2. Absent: rub, click - Extremities Extremities: pulses symmetrical, No edema Peripheral Pulses: within normal limits - Abdominal General gastrointestinal: Present: soft, non-tender, non-distended, normal bowel sounds Female genitourinary: Present: normal - Integumentary Integumentary: Present: clear, warm, dry - Musculoskeletal Musculoskeletal: gait normal, strength equal bilaterally - Psychiatric Psychiatric: appropriate mood/affect, intact judgment & insight - Neurologic Neurologic: CNII-XII intact, moves all extremities Plan Activity: advance as tolerated Weight Bearing Status: Weight Bear as Tolerated Diet: diabetic Follow up with: PRIMARY MD NIKKIE [Primary Care Provider] - 7 Days LOLITA SHAFER MD [Staff Physician] - 7 Days NAVNEET QUEZADA DO [Staff Physician] - 7 Days
[2018-08-01 12:44] VITALS: BP 113/62
[2023-07-25] MEDS ORDERED: PROTONIX PO SCH (16:40)
== END 2018-08-01 15:38 | DRG 698 ==
LOC: ED 16:10 → 3A 21:31
PROVIDERS: ADMIT Internal Medicine; ATTEND Hospitalist
DX: T83.518A Infection and inflammatory reaction due to other urinary catheter, initial encounter (principal); A41.9 Sepsis, unspecified organism; N17.0 Acute kidney failure with tubular necrosis; N39.0 Urinary tract infection, site not specified; Z68.44 Body mass index [BMI] 60.0-69.9, adult; L97.929 Non-pressure chronic ulcer of unspecified part of left lower leg with unspecified severity; L97.919 Non-pressure chronic ulcer of unspecified part of right lower leg with unspecified severity; I69.351 Hemiplegia and hemiparesis following cerebral infarction affecting right dominant side; E11.9 Type 2 diabetes mellitus without complications; L89.152 Pressure ulcer of sacral region, stage 2; E66.01 Morbid (severe) obesity due to excess calories; F32.9 Major depressive disorder, single episode, unspecified; I11.0 Hypertensive heart disease with heart failure; I50.9 Heart failure, unspecified; J45.909 Unspecified asthma, uncomplicated; Z82.49 Family history of ischemic heart disease and other diseases of the circulatory system; Z98.51 Tubal ligation status
CPT/HCPCS: 36415; 71045; 80048; 80053; 81001; 82140; 82962; 85007; 85025; 85027; 87040; 87076; 87086; 87186; 96365; 96375; G0378; J0295; J0692; J0696; J1580; J1650; J1815; J2270; J2405; J7030

== ENCOUNTER 2018-09-16 08:27 | Outpatient (CLI) | payer MEDICARE ==
[2018-09-16] MEDS ORDERED: XYLOCAINE TOPICAL 4% TP ONE (08:34)
[2018-09-16] MEDS ORDERED: AD OINTMENT TP SCH (10:00)
== END 2018-09-16 08:28 | disposition home or self-care (01) ==
LOC: WOUND 08:27
PROVIDERS: ATTEND Surgery
DX: E11.622 Type 2 diabetes mellitus with other skin ulcer (principal); L97.121 Non-pressure chronic ulcer of left thigh limited to breakdown of skin; I89.0 Lymphedema, not elsewhere classified; S31.103A Unspecified open wound of abdominal wall, right lower quadrant without penetration into peritoneal cavity, initial encounter; I50.9 Heart failure, unspecified; E66.01 Morbid (severe) obesity due to excess calories; G47.30 Sleep apnea, unspecified; N28.9 Disorder of kidney and ureter, unspecified; Z86.73 Personal history of transient ischemic attack (TIA), and cerebral infarction without residual deficits; Z68.26 Body mass index [BMI] 26.0-26.9, adult; X58.XXXA Exposure to other specified factors, initial encounter; Y93.89 Activity, other specified; Y92.89 Other specified places as the place of occurrence of the external cause; Y99.8 Other external cause status
CPT/HCPCS: 11042; 11045; G0463; 99215; A6250

== ENCOUNTER 2018-09-27 10:55 | Outpatient (CLI) | payer MEDICARE ==
[2018-09-27] MEDS ORDERED: XYLOCAINE TOPICAL 4% TP ONE ×2 (11:13→11:41)
== END 2018-09-27 10:56 | disposition home or self-care (01) ==
LOC: WOUND 10:55
PROVIDERS: ATTEND Surgery
DX: E11.622 Type 2 diabetes mellitus with other skin ulcer (principal); L97.121 Non-pressure chronic ulcer of left thigh limited to breakdown of skin; I89.0 Lymphedema, not elsewhere classified; S31.103D Unspecified open wound of abdominal wall, right lower quadrant without penetration into peritoneal cavity, subsequent encounter; I50.9 Heart failure, unspecified; E66.01 Morbid (severe) obesity due to excess calories; G47.30 Sleep apnea, unspecified; N28.9 Disorder of kidney and ureter, unspecified; Z86.73 Personal history of transient ischemic attack (TIA), and cerebral infarction without residual deficits; Z68.26 Body mass index [BMI] 26.0-26.9, adult; X58.XXXD Exposure to other specified factors, subsequent encounter

== ENCOUNTER 2018-10-11 08:55 | Outpatient (CLI) | payer MEDICARE ==
[2018-10-11] MEDS ORDERED: XYLOCAINE TOPICAL 4% TP ONE (09:40)
== END 2018-10-11 08:56 | disposition home or self-care (01) ==
LOC: WOUND 08:55
PROVIDERS: ATTEND Surgery
DX: S81.801D Unspecified open wound, right lower leg, subsequent encounter (principal); I89.0 Lymphedema, not elsewhere classified; I50.9 Heart failure, unspecified; G47.30 Sleep apnea, unspecified; N28.9 Disorder of kidney and ureter, unspecified; Z86.73 Personal history of transient ischemic attack (TIA), and cerebral infarction without residual deficits; X58.XXXD Exposure to other specified factors, subsequent encounter

== ENCOUNTER 2019-10-17 12:02 | Outpatient (CLI) | payer MEDICARE ==
[2019-10-17] MEDS ORDERED: LIDOCAINE (4%) 40 MG/ML TOPICAL SOLN 50 ML BOTTLE TP ONE (13:55)
== END 2019-10-17 12:03 | disposition home or self-care (01) ==
LOC: WOUND 12:02
PROVIDERS: ATTEND Surgery
DX: L97.822 Non-pressure chronic ulcer of other part of left lower leg with fat layer exposed (principal); L97.812 Non-pressure chronic ulcer of other part of right lower leg with fat layer exposed; I89.0 Lymphedema, not elsewhere classified; I50.9 Heart failure, unspecified; G47.30 Sleep apnea, unspecified; Z86.73 Personal history of transient ischemic attack (TIA), and cerebral infarction without residual deficits; Z89.422 Acquired absence of other left toe(s); Z87.891 Personal history of nicotine dependence
CPT/HCPCS: 11044; 11047; G0463; 99205

== ENCOUNTER 2019-11-07 10:25 | Outpatient (CLI) | payer MEDICARE ==
[2019-11-07] MEDS ORDERED: LIDOCAINE (4%) 40 MG/ML TOPICAL SOLN 50 ML BOTTLE TP ONE (10:29)
== END 2019-11-07 10:26 | disposition home or self-care (01) ==
LOC: WOUND 10:25
PROVIDERS: ATTEND Surgery
DX: L97.822 Non-pressure chronic ulcer of other part of left lower leg with fat layer exposed (principal); L97.812 Non-pressure chronic ulcer of other part of right lower leg with fat layer exposed; I89.0 Lymphedema, not elsewhere classified; I50.9 Heart failure, unspecified; G47.30 Sleep apnea, unspecified; Z86.73 Personal history of transient ischemic attack (TIA), and cerebral infarction without residual deficits; Z89.422 Acquired absence of other left toe(s); Z87.891 Personal history of nicotine dependence

== ENCOUNTER 2019-11-16 12:56 | Outpatient (CLI) | payer MEDICARE ==
[2019-11-16] MEDS ORDERED: LIDOCAINE (4%) 40 MG/ML TOPICAL SOLN 50 ML BOTTLE TP ONE (12:58)
== END 2019-11-16 12:57 | disposition home or self-care (01) ==
LOC: WOUND 12:56
PROVIDERS: ATTEND Surgery
DX: L97.826 Non-pressure chronic ulcer of other part of left lower leg with bone involvement without evidence of necrosis (principal); L97.816 Non-pressure chronic ulcer of other part of right lower leg with bone involvement without evidence of necrosis; I89.0 Lymphedema, not elsewhere classified; I50.9 Heart failure, unspecified; G47.30 Sleep apnea, unspecified; Z86.73 Personal history of transient ischemic attack (TIA), and cerebral infarction without residual deficits; Z89.422 Acquired absence of other left toe(s); Z87.891 Personal history of nicotine dependence

== ENCOUNTER 2019-11-23 13:02 | Outpatient (CLI) | payer MEDICARE ==
[2019-11-23] MEDS ORDERED: LIDOCAINE (4%) 40 MG/ML TOPICAL SOLN 50 ML BOTTLE TP ONE (13:19)
== END 2019-11-23 13:03 | disposition home or self-care (01) ==
LOC: WOUND 13:02
PROVIDERS: ATTEND Surgery
DX: L97.822 Non-pressure chronic ulcer of other part of left lower leg with fat layer exposed (principal); L97.812 Non-pressure chronic ulcer of other part of right lower leg with fat layer exposed; I89.0 Lymphedema, not elsewhere classified; I50.9 Heart failure, unspecified; G47.30 Sleep apnea, unspecified; Z86.73 Personal history of transient ischemic attack (TIA), and cerebral infarction without residual deficits; Z89.422 Acquired absence of other left toe(s); Z87.891 Personal history of nicotine dependence

== ENCOUNTER 2019-11-30 12:53 | Outpatient (CLI) | payer MEDICARE ==
[2019-11-30] MEDS ORDERED: LIDOCAINE (4%) 40 MG/ML TOPICAL SOLN 50 ML BOTTLE TP ONE (13:05)
== END 2019-11-30 12:54 | disposition home or self-care (01) ==
LOC: WOUND 12:53
PROVIDERS: ATTEND Surgery
DX: L97.822 Non-pressure chronic ulcer of other part of left lower leg with fat layer exposed (principal); L97.812 Non-pressure chronic ulcer of other part of right lower leg with fat layer exposed; I87.2 Venous insufficiency (chronic) (peripheral); I89.0 Lymphedema, not elsewhere classified; I50.9 Heart failure, unspecified; G47.30 Sleep apnea, unspecified; Z86.73 Personal history of transient ischemic attack (TIA), and cerebral infarction without residual deficits; Z89.422 Acquired absence of other left toe(s); Z87.891 Personal history of nicotine dependence

== ENCOUNTER 2019-12-07 12:55 | Outpatient (CLI) | payer MEDICARE ==
[2019-12-07] MEDS ORDERED: LIDOCAINE (4%) 40 MG/ML TOPICAL SOLN 50 ML BOTTLE TP ONE (12:59)
== END 2019-12-07 12:56 | disposition home or self-care (01) ==
LOC: WOUND 12:55
PROVIDERS: ATTEND Surgery
DX: L97.822 Non-pressure chronic ulcer of other part of left lower leg with fat layer exposed (principal); L97.812 Non-pressure chronic ulcer of other part of right lower leg with fat layer exposed; I87.2 Venous insufficiency (chronic) (peripheral); I89.0 Lymphedema, not elsewhere classified; I50.9 Heart failure, unspecified; G47.30 Sleep apnea, unspecified; Z86.73 Personal history of transient ischemic attack (TIA), and cerebral infarction without residual deficits; Z89.422 Acquired absence of other left toe(s); Z87.891 Personal history of nicotine dependence

== ENCOUNTER 2020-01-11 12:58 | Outpatient (CLI) | payer MEDICARE ==
[2020-01-11] MEDS ORDERED: LIDOCAINE (4%) 40 MG/ML TOPICAL SOLN 50 ML BOTTLE TP ONE (13:41)
== END 2020-01-11 12:59 | disposition home or self-care (01) ==
LOC: WOUND 12:58
PROVIDERS: ATTEND Surgery
DX: L97.822 Non-pressure chronic ulcer of other part of left lower leg with fat layer exposed (principal); L97.812 Non-pressure chronic ulcer of other part of right lower leg with fat layer exposed; I87.2 Venous insufficiency (chronic) (peripheral); I89.0 Lymphedema, not elsewhere classified; I50.9 Heart failure, unspecified; G47.30 Sleep apnea, unspecified; Z86.73 Personal history of transient ischemic attack (TIA), and cerebral infarction without residual deficits; Z89.422 Acquired absence of other left toe(s); Z87.891 Personal history of nicotine dependence

== ENCOUNTER 2020-01-18 13:16 | Outpatient (CLI) | payer MEDICARE ==
[2020-01-18] MEDS ORDERED: LIDOCAINE (4%) 40 MG/ML TOPICAL SOLN 50 ML BOTTLE TP ONE (13:30)
== END 2020-01-18 13:17 | disposition home or self-care (01) ==
LOC: WOUND 13:16
PROVIDERS: ATTEND Surgery
DX: L97.822 Non-pressure chronic ulcer of other part of left lower leg with fat layer exposed (principal); L97.812 Non-pressure chronic ulcer of other part of right lower leg with fat layer exposed; I87.2 Venous insufficiency (chronic) (peripheral); I89.0 Lymphedema, not elsewhere classified; I50.9 Heart failure, unspecified; G47.30 Sleep apnea, unspecified; Z86.73 Personal history of transient ischemic attack (TIA), and cerebral infarction without residual deficits; Z89.422 Acquired absence of other left toe(s); Z87.891 Personal history of nicotine dependence

== ENCOUNTER 2020-03-21 13:26 | Outpatient (CLI) | payer MEDICARE ==
[2020-03-21] MEDS ORDERED: LIDOCAINE (4%) 40 MG/ML TOPICAL SOLN 50 ML BOTTLE TP ONE (14:05)
== END 2020-03-21 13:27 | disposition home or self-care (01) ==
LOC: WOUND 13:26
PROVIDERS: ATTEND Surgery
DX: L97.812 Non-pressure chronic ulcer of other part of right lower leg with fat layer exposed (principal); I87.8 Other specified disorders of veins; I50.9 Heart failure, unspecified; G47.30 Sleep apnea, unspecified; Z89.422 Acquired absence of other left toe(s); Z87.891 Personal history of nicotine dependence

== ENCOUNTER 2020-03-28 13:57 | Outpatient (CLI) | payer MEDICARE ==
[2020-03-28] MEDS ORDERED: LIDOCAINE (4%) 40 MG/ML TOPICAL SOLN 50 ML BOTTLE TP ONE (15:27)
== END 2020-03-28 13:58 | disposition home or self-care (01) ==
LOC: WOUND 13:57
PROVIDERS: ATTEND Surgery
DX: L97.812 Non-pressure chronic ulcer of other part of right lower leg with fat layer exposed (principal); I87.8 Other specified disorders of veins; I50.9 Heart failure, unspecified; G47.30 Sleep apnea, unspecified; Z89.422 Acquired absence of other left toe(s); Z87.891 Personal history of nicotine dependence